=== PATIENT | female | born 1935 | race Caucasian/White ===

== ENCOUNTER → 2020-03-12 11:06 | Outpatient (BNVA) | payer OTHER, SELFPAY | PROVIDERS: PCP Internal Medicine; Referring Provider Internal Medicine; Visit Provider Internal Medicine | DX: I48.20 Chronic atrial fibrillation, unspecified (principal); I26.99 Other pulmonary embolism without acute cor pulmonale; Z51.81 Encounter for therapeutic drug level monitoring; Z79.01 Long term (current) use of anticoagulants | CPT/HCPCS: 85610 ==

== ENCOUNTER 2020-03-12 19:18 | Outpatient (REF) | payer OTHER, SELFPAY | END 2020-03-12 19:19 | disposition home or self-care (01) | LOC: HO.LNP 19:18 | PROVIDERS: Visit Provider Internal Medicine | DX: Z79.01 Long term (current) use of anticoagulants (principal) ==

== ENCOUNTER → 2020-03-29 11:24 | Outpatient (BNVA) | payer OTHER, SELFPAY | PROVIDERS: PCP Internal Medicine; Visit Provider Internal Medicine | DX: I48.20 Chronic atrial fibrillation, unspecified (principal); I26.99 Other pulmonary embolism without acute cor pulmonale; Z51.81 Encounter for therapeutic drug level monitoring; Z79.01 Long term (current) use of anticoagulants | CPT/HCPCS: 85610 ==

== ENCOUNTER 2020-04-19 09:17 | Outpatient (REF) | payer OTHER, SELFPAY ==
[2020-04-19 11:02] LABS: Alanine Aminotransferase 24 U/L (0-31); Albumin Level 3.7 g/dL (3.5-5.0); Alkaline Phosphatase 73 U/L (39-117); Aspartate Amino Transferase 24 U/L (5-31); Bilirubin Direct 0.2 mg/dL (0.0-0.5); Bilirubin Total 0.5 mg/dL (0.0-1.0); Cholesterol 161 mg/dL; HDL Cholesterol 65 mg/dL; LDL Cholesterol Calculated 84 mg/dl; Triglycerides 63 mg/dL
== END 2020-04-19 09:18 | disposition home or self-care (01) ==
LOC: HO.LAB 09:17
PROVIDERS: PCP Internal Medicine; Visit Provider Internal Medicine
DX: E78.00 Pure hypercholesterolemia, unspecified (principal)
CPT/HCPCS: 80061; 80076

== ENCOUNTER → 2020-04-30 10:32 | Outpatient (BNVA) | payer OTHER, SELFPAY | PROVIDERS: PCP Internal Medicine; Visit Provider Internal Medicine | DX: I48.20 Chronic atrial fibrillation, unspecified (principal); I26.99 Other pulmonary embolism without acute cor pulmonale; Z51.81 Encounter for therapeutic drug level monitoring; Z79.01 Long term (current) use of anticoagulants | CPT/HCPCS: 85610; 99211 ==

== ENCOUNTER → 2020-05-10 10:30 | Outpatient (BNVA) | payer OTHER, SELFPAY | PROVIDERS: PCP Family Medicine; Visit Provider Internal Medicine | DX: I48.20 Chronic atrial fibrillation, unspecified (principal); I26.99 Other pulmonary embolism without acute cor pulmonale; Z51.81 Encounter for therapeutic drug level monitoring; Z79.01 Long term (current) use of anticoagulants | CPT/HCPCS: 85610; 99211 ==

== ENCOUNTER → 2020-05-24 10:19 | Outpatient (REF) | payer OTHER, SELFPAY ==
--- NOTE | 2020-05-24 | NM_ITS ---
Myocardial perfusion study Indication: Chest tightness to evaluate for myocardial ischemia Technique: The patient was brought in for a Lexiscan perfusion study on 05/24/2020. Patient performed low-level exercise and was injected 0.4 mg of Lexiscan intravenously. Within a minute of injection, 25 mCi of sestamibi was given intravenously. Images were obtained using the SPECT gamma camera interlaced with the gating device. Images were obtained in supine position. Resting perfusion study was performed on 05/28/2020. Patient was administered 25 mCi of sestamibi intravenously at rest. Images were then obtained in supine position. Images obtained with and without CT attenuation. Total DLP 50 mGy-cm. Images were processed with the software and compared side to side in short axis, horizontal long axis and vertical long axis views. Findings: The stress perfusion study showed non attenuated images show mildly reduced uptake in the basal and mid septum of the LV myocardium. Remainder of the LV myocardium is normally perfused. Attenuation corrected images show mildly reduced uptake in the septum, distal anterior and apex of the LV myocardium.. The gated study shows normal LV systolic function with calculated LVEF of greater than 70 %. LV cavity is normal in size. The gated study shows normal systolic wall thickening and contraction of segments. Resting study shows no change in perfusion pattern compared to stress perfusion study. Gating at rest reveals normal systolic wall motion with ejection fraction at 74%. The findings are consistent with no reversible defect suggestive of myocardial ischemia. Most suggestive normal myocardial perfusion. NM/NM kyleigh perf SPECT rest & str Impression: 1. Myocardial perfusion imaging study shows normal myocardial perfusion 2. Gated LVEF is greater than 70% 3. Transient ischemic dilatation not present EKG nondiagnostic for ischemia
--- NOTE | 2020-05-24 10:00 | CA_ITS ---
Acquisition Time: 2020-05-24 11:52:41 Total Exercise Time: 00:02:00 Test Indications: R07.89 Medications: SEE CHART Protocol: LEXISCAN Max HR: 083 BPM 61% of Pred: 135 BPM Max BP: 132/070 mmHG Max Work Load: 1.0 METS Pharmacological stress test with Lexiscan injection, while sitting and kicking her legs, without anginal symptoms, with isolated PACs, with normotensive response to injection, with nondiagnostic EKG for ischemia. In recovery she reported some lightheadedness and was treated with Aminophylline 75mg IVP to reverse Lexiscan with improvement in symptom. Nuclear images pending. Test reviewed with Dr Lam. Referred By: Izaiah Serrano Overread By: CHUCK ROONEY
== END ==
LOC: HO.CARD 10:19
PROVIDERS: Visit Provider Internal Medicine
DX: R07.89 Other chest pain (principal); I48.0 Paroxysmal atrial fibrillation
CPT/HCPCS: 78452; 93017; A9500; J2785

== ENCOUNTER → 2020-05-31 11:36 | Outpatient (BNVA) | payer OTHER, SELFPAY | PROVIDERS: PCP Family Medicine; Visit Provider Internal Medicine | DX: I48.20 Chronic atrial fibrillation, unspecified (principal); I26.99 Other pulmonary embolism without acute cor pulmonale; Z51.81 Encounter for therapeutic drug level monitoring; Z79.01 Long term (current) use of anticoagulants | CPT/HCPCS: 85610; 99211 ==

== ENCOUNTER 2020-06-02 19:52 | Inpatient (IN) | payer OTHER, SELFPAY ==
--- NOTE | 2020-06-02 19:51 | ED.SYNCOPE ---
HPI - Syncope General Chief Complaint: Syncope Stated Complaint: SYNCOPE Time Seen by Provider: 06/02/20 19:59 Source: patient and EMS Mode of arrival: EMS Limitations: no limitations History of Present Illness HPI narrative: This is a 84-year-old female brought in by ambulance after having a syncopal episode, patient was sitting on the dinner table after she finished eating dinner patient passed out on the table witnessed by family, reportedly was over a minute, no witness full or head trauma, patient has no memory of the event, patient complained of mild chest pain that lasted for a few seconds then going to weigh patient has no chest pain, but patient feels still not back to her normal self, patient has history of pacemaker (10 years ago). Patient reportedly had stress test done last week documentation is not available in the system currently. Related Data Home Medications Medication Instructions Recorded Confirmed ascorbic acid (vitamin C) [Vitamin 500 mg PO DAILY 06/02/20 06/02/20 C] cholecalciferol (vitamin D3) 25 mcg PO DAILY 06/02/20 06/02/20 [Vitamin D3] cyanocobalamin (vitamin B-12) 1,000 mcg PO DAILY 06/02/20 06/02/20 [Vitamin B-12] ferrous sulfate 325 mg PO DAILY 06/02/20 06/02/20 ketoconazole 1 appl TOPICAL 3XW 06/02/20 06/02/20 lactobacillus combination no.4 3,000 mmu cells PO DAILY 06/02/20 06/02/20 [Probiotic] warfarin 2.5 mg PO TUFR@1800 06/02/20 06/02/20 warfarin 5 mg PO SUMOWETHSA@1800 06/02/20 06/02/20 Previous Rx's Medication Instructions Recorded warfarin 5 mg tablet 5 mg PO .COMPLEX #90 tab 03/12/20 simvastatin 10 mg tablet 10 mg PO BEDTIME #90 tab 04/20/20 flecainide 50 mg tablet 50 mg PO BID #180 tab 05/16/20 metoprolol succinate 25 mg 25 mg PO DAILY #90 tab 05/16/20 tablet,extended release 24 hr Allergies Allergy/AdvReac Type Severity Reaction Status Date / Time codeine [Codeine] Allergy Unknown VOMITING Verified 04/30/20 10:33 doxycycline [Doxycycline] Allergy Unknown DIFF Verified 04/30/20 10:33 BREATHING Penicillins Allergy Unknown DIFF Verified 04/30/20 10:33 BREATHING pepper (genus Capsicum) Allergy Unknown Unknown Verified 04/30/20 10:33 tetracycline [Tetracycline] Allergy Unknown DIFF Verified 04/30/20 10:33 BREATHING oxycodone [From PERCOCET] AdvReac Intermediate VOMITING Verified 04/30/20 10:33 epinephrine Allergy Unknown Unknown Uncoded 04/19/20 08:13 From Novocain Allergy Unknown LOWERED BP Uncoded 02/26/20 15:05 - OK IF IT DOES NOT HAVE EPINEPHRINE IN IT toro for MIBI Allergy Unknown headache Uncoded 11/19/19 00:00 most antibiotics Allergy Unknown Unknown Uncoded 04/19/20 08:13 Pt states she CAN take Emycin Allergy Unknown Unknown Uncoded 04/19/20 08:13 Review of Systems Review of Systems: All other systems are reviewed and are negative Constitutional: Reports as per HPI and Reports no additional constitutional complaints Eyes: Reports as per HPI and Reports no additional eye complaints Reports system reviewed and no additional complaints, except as documented Cardiovascular: Reports as per HPI and Reports no additional cardiovascular complaints Respiratory: Reports as per HPI and Reports no additional respiratory complaints Gastrointestinal: Reports as per HPI and Reports no additional gastrointestinal complaints Genitourinary: Reports no additional female genitourinary complaints Musculoskeletal: Reports no additional musculoskeletal complaints Skin/Breast: Reports system reviewed and no additional complaints, except as docu Psychiatric: Reports no additional psychiatric complaints Endocrine: Reports no additional endocrine complaints Hematologic/Lymphatic: Reports no additional hematologic/lymphatic complaints Allergic/Immunologic: Reports no additional allergic/immunologic complaints Reports system reviewed and no additional complaints, except as documented and Reports Abnormal speech present [facility] Past Medical History Medical History Atrial fibrillation Coronary artery disease Glaucoma History of pulmonary embolism Hypercholesterolemia Hypertension Irritable bowel syndrome Pacemaker Peripheral neuropathy Post concussive syndrome Protein S deficiency Sick sinus syndrome Stress incontinence Surgical History H/O breast surgery History of appendectomy History of D&C History of eye surgery History of hemorrhoidectomy History of hip replacement History of pacemaker History of tonsillectomy and adenoidectomy History of total abdominal hysterectomy and bilateral salpingo-oophorectomy Presence of IVC filter Family History Family History Father Heart disease Stroke Mother Heart disease Sister Breast cancer Brother Heart disease Sister Breast cancer Social History Social History Alcohol intake: current Alcohol intake frequency: holidays/special occasions only Alcohol type: hard liquor Smoked in Last 30 Days: No Use of substances other than those prescribed or required for medical reasons: No Advance Directives: No Advance Directives Information Provided: Yes Physical Exam Vital Signs: Vital Signs: Last Vital Signs Temp 98.2 F 06/02/20 22:09 Pulse 72 06/02/20 22:09 Resp 18 06/02/20 22:09 BP 111/63 06/02/20 22:09 Pulse Ox 97 06/02/20 22:10 Body Mass Index 19.5 Vital signs have been reviewed as normal and appeared to be correct. Blood pressure normal. Heart rate normal. Respiration rate normal. Temperature normal. Oxygen saturation normal. Appearance: Alert. Oriented X3. No acute distress. Head: Normal external exam. Normocephalic. Atraumatic. No Ornelas signs noted. No raccoon eyes noted Eyes: PERRLA. EOMI. Conjunctiva and sclera normal. Eyelids normal. ENT: EAC normal. TM's Normal. Pharynx normal. Uvula midline. Moist mucous membranes. No trismus noted. No drooling noted. No muffled voice noted. Neck: Normal inspection. Neck supple. FROM. No adenopathy. Thyroid Normal. No meningeal signs. No neck mass noted. CVS: Normal heart rate and rhythm. Heart sound normal. No murmurs noted. Pulses normal throughout. Respiratory: No respiratory distress. Painless inspiration. Breath sounds normal. No wheezes/rales/rhonchi noted. Chest nontender. No accessory muscle usage noted or decreased air movement noted. Abdomen: Soft and nontender. Bowel sounds normal in all 4 quadrants. No distention noted. No organomegaly noted. No visible injury noted. Back: No CVA tenderness. Full range of motion noted. Skin: Skin warm and dry. Normal skin color. Normal skin turgor. No rashes/lesions/lacerations noted. Extremities: No lower extremity edema. Extremities exhibit normal range of motion. Extremities nontender. Neuro: Oriented X 3. No motor deficit. No sensory deficit. Reflexes normal. MDM - Syncope MDM Narrative Medical decision making narrative: Assessment and plan. 84-year-old female had syncopal episode without physical injury. Patient had a recent myocardial perfusion scan which showed normal myocardial perfusion with ejection fraction of 70%. Will admit the patient for further syncopal workout. Lab Data Result diagrams: 06/02/20 20:41 06/02/20 20:41 Labs: Lab Results 06/02/20 06/02/20 06/02/20 Range/Units 20:41 20:41 20:41 WBC 5.0 (4.8-10.8) X10*3/uL RBC 4.18 L (4.20-5.50) X10*6/uL Hgb 12.8 (12.0-16.0) g/dl Hct 38.6 (37-47) % MCV 92.3 (80-98) fL MCH 30.6 (27.0-33.0) pg MCHC 33.2 (31.0-35.0) g/dl RDW 15.2 (11.0-16.0) % Plt Count 159 L (160-400) X10*3/uL MPV 10.1 (9.4-12.3) fL Immature Gran % (Auto) 0.4 (0.0-0.4) % Neut % (Auto) 68.1 (45-73) % Lymph % (Auto) 19.9 L (20-40) % Harding % (Auto) 9.6 (2-11) % Eos % (Auto) 1.2 (0-4) % Baso % (Auto) 0.8 (0-2) % Lymph # (Auto) 1.0 L (1.2-4.9) X10*3/uL Harding # (Auto) 0.5 (0.1-1.2) X10*3/uL Eos # (Auto) 0.1 (0.0-0.4) X10*3/uL Baso # (Auto) 0.0 (0.0-0.2) X10*3/uL Abs Immat Gran (auto) 0.02 (0.00-0.03) X10*3/uL Absolute Neuts (auto) 3.4 (2.0-8.3) X10*3/uL Absolute Nucleated RBC 0.000 (0.0-0.012) X10*3/uL Nucleated RBC % (auto) 0.0 (0.0-0.2) /100WBC PT (10.8-13.0) SEC INR (0.9-1.1) APTT (24.1-38.0) SEC Sodium 140 (135-145) mmol/L Potassium 4.0 (3.3-5.1) mmol/l Chloride 106 (96-108) mmol/L Carbon Dioxide 26 (22-29) mmol/L Anion Gap 12 (12-20) BUN 17 H (9-16) mg/dL Creatinine 0.94 (0.5-1.4) mg/dL Estim Creat Clear Calc 31.3 Estimated GFR 57 Random Glucose 90 (60-115) mg/dL Calcium 8.8 (8.4-10.2) mg/dL Total Bilirubin 0.6 (0.0-1.0) mg/dL Direct Bilirubin 0.2 (0.0-0.5) mg/dL AST 32 H (5-31) U/L ALT 23 (0-31) U/L Alkaline Phosphatase 75 (39-117) U/L Troponin I High Sens < 3.5 (<3.5-17.0) ng/L B-Natriuretic Peptide (<100) pg/mL Total Protein 6.2 L (6.5-8.0) g/dL Albumin 3.8 (3.5-5.0) g/dL Lipase 44 (8-78) U/L 06/02/20 06/02/20 Range/Units 20:41 20:41 WBC (4.8-10.8) X10*3/uL RBC (4.20-5.50) X10*6/uL Hgb (12.0-16.0) g/dl Hct (37-47) % MCV (80-98) fL MCH (27.0-33.0) pg MCHC (31.0-35.0) g/dl RDW (11.0-16.0) % Plt Count (160-400) X10*3/uL MPV (9.4-12.3) fL Immature Gran % (Auto) (0.0-0.4) % Neut % (Auto) (45-73) % Lymph % (Auto) (20-40) % Harding % (Auto) (2-11) % Eos % (Auto) (0-4) % Baso % (Auto) (0-2) % Lymph # (Auto) (1.2-4.9) X10*3/uL Harding # (Auto) (0.1-1.2) X10*3/uL Eos # (Auto) (0.0-0.4) X10*3/uL Baso # (Auto) (0.0-0.2) X10*3/uL Abs Immat Gran (auto) (0.00-0.03) X10*3/uL Absolute Neuts (auto) (2.0-8.3) X10*3/uL Absolute Nucleated RBC (0.0-0.012) X10*3/uL Nucleated RBC % (auto) (0.0-0.2) /100WBC PT 28.3 H (10.8-13.0) SEC INR 2.4 H (0.9-1.1) APTT 33.4 (24.1-38.0) SEC Sodium (135-145) mmol/L Potassium (3.3-5.1) mmol/l Chloride (96-108) mmol/L Carbon Dioxide (22-29) mmol/L Anion Gap (12-20) BUN (9-16) mg/dL Creatinine (0.5-1.4) mg/dL Estim Creat Clear Calc Estimated GFR Random Glucose (60-115) mg/dL Calcium (8.4-10.2) mg/dL Total Bilirubin (0.0-1.0) mg/dL Direct Bilirubin (0.0-0.5) mg/dL AST (5-31) U/L ALT (0-31) U/L Alkaline Phosphatase (39-117) U/L Troponin I High Sens (<3.5-17.0) ng/L B-Natriuretic Peptide 140 H (<100) pg/mL Total Protein (6.5-8.0) g/dL Albumin (3.5-5.0) g/dL Lipase (8-78) U/L Imaging Data Chest x-ray: Radiologist's impression: No acute intrathoracic pathology. CT scan - head: Radiologist's impression: No acute intracranial pathology. ECG Data Interpretation: Normal sinus rhythm at 65 beats per minutes, ID interval is prolonged it with first-degree AV block, otherwise unremarkable intervals, T-wave flattening in aVL,III. Discharge Plan Discharge Clinical Impression: Syncope Patient Disposition: Admitted As Inpatient Prescriptions: No Action flecainide 50 mg tablet 50 mg PO BID Qty: 180 RF: 3 metoprolol succinate 25 mg tablet extended release 24 hr 25 mg PO DAILY Qty: 90 RF: 3 ketoconazole 2 % Shampoo 1 appl TOPICAL 3XW RF: 0 warfarin 5 mg Tablet 5 mg PO SUMOWETHSA@1800 RF: 0 warfarin 5 mg Tablet 2.5 mg PO TUFR@1800 RF: 0 cyanocobalamin (vitamin B-12) [Vitamin B-12] 1,000 mcg Tablet 1,000 mcg PO DAILY RF: 0 ascorbic acid (vitamin C) [Vitamin C] 500 mg Tablet 500 mg PO DAILY RF: 0 ferrous sulfate 325 mg (65 mg iron) Tablet 325 mg PO DAILY RF: 0 cholecalciferol (vitamin D3) [Vitamin D3] 25 mcg (1,000 unit) Tablet 25 mcg PO DAILY RF: 0 Probiotic 3 billion cell Capsule 3,000 mmu cells PO DAILY RF: 0 simvastatin 10 mg tablet 10 mg PO BEDTIME Qty: 90 RF: 1 warfarin 5 mg tablet 5 mg PO .COMPLEX Qty: 90 RF: 0
[2020-06-02 19:57] VITALS: BP 122/71; PULSE 67; PULSE 72; RESP 18; TEMP 36.7; O2SAT 95; O2SAT 99; BMI 19.5
--- NOTE | 2020-06-02 19:59 | XR_ITS ---
EXAMINATION: XR CHEST CLINICAL INFORMATION: Syncope COMPARISON: Chest CT 10/29/2019 and chest radiograph 09/19/2018 TECHNIQUE: Frontal view of the chest was obtained. FINDINGS: The heart and pulmonary vessels appear normal. No infiltrates, effusions or lung masses are seen. There is a left chest wall pacemaker with one lead in the atria the other at the right ventricular apex. A retrievable IVC filter is present tip just beneath the L1-L2 interspace. XR/XR chest 1V IMPRESSION: No acute intrathoracic disease.
--- NOTE | 2020-06-02 20:00 | ECG_ITS ---
Test Reason : SYNCOPE Blood Pressure : / mmHG Vent. Rate : 067 BPM Atrial Rate : 067 BPM P-R Int : 224 ms QRS Dur : 102 ms QT Int : 420 ms P-R-T Axes : 068 -31 072 degrees QTc Int : 443 ms Sinus rhythm with 1st degree A-V block Left axis deviation Anteroseptal infarct (cited on or before 14-SEP-2003) Abnormal ECG When compared with ECG of 19-SEP-2018 16:57, No significant change was found Referred By: Aaliyah Domingo Electronically Signed By:MIKE MARTINEZ MD
--- NOTE | 2020-06-02 20:00 | CT_ITS ---
EXAMINATION: CT HEAD WITHOUT CONTRAST CLINICAL INFORMATION: Syncope COMPARISON: CT head 11/11/2019 TECHNIQUE: Contiguous axial imaging was performed from the skull base to vertex without intravenous administration of contrast. Coronal and sagittal reformatted images are performed at the CT scanner This CT examination was performed using dose optimization techniques as appropriate, variously including the following: *Automated exposure control *Adjustment of mA and/or kV according to patient size (this includes techniques or standardized protocols for targeted exams where dose is matched to indication/reason for exam; i.e. extremities or head) *Use of iterative reconstruction technique DLP: 624 mGy-cm FINDINGS: There is no evidence of acute intracranial hemorrhage or territorial infarction. No abnormal mass effect or midline shift is seen. [place]more to white matter differentiation is well preserved. No extra-axial fluid collections are identified. There is atrophy with prominence of the ventricles and the sulci and hypodensity of the periventricular white matter due to chronic small vessel ischemic disease. 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 There are vascular calcifications of the internal carotid arteries bilaterally. The osseous structures and soft tissues are normal. The mastoid air cells and visualized portions of the paranasal sinuses are well aerated. CT/CT head/brain wo con IMPRESSION: No acute intracranial pathology.
--- NOTE | 2020-06-02 20:15 | PC.NURSE ---
chest xray performed
[2020-06-02 20:48] LABS: MANUAL DIFF FLAG NO
[2020-06-02 20:54] LABS: Basophils Percent Auto 0.8 % (0-2); Eosinophils Absolute Auto 0.1 X10*3/uL (0.0-0.4); Eosinophils Percent Auto 1.2 % (0-4); Hematocrit 38.6 % (37-47); Hemoglobin 12.8 g/dl (12.0-16.0); Imm Gran Abs Auto 0.02 X10*3/uL (0.00-0.03); Imm Gran Pct Auto 0.4 % (0.0-0.4); Lymphocytes Percent Auto 19.9 % (20-40); Mean Corpuscular HGB Conc 33.2 g/dl (31.0-35.0); Mean Corpuscular Hemoglobin 30.6 pg (27.0-33.0); Mean Corpuscular Volume 92.3 fL (80-98); Mean Platelet Volume 10.1 fL (9.4-12.3); Monocytes Absolute Auto 0.5 X10*3/uL (0.1-1.2); Monocytes Percent Auto 9.6 % (2-11); Neutrophils Absolute Auto 3.4 X10*3/uL (2.0-8.3); Neutrophils Percent Auto 68.1 % (45-73); Platelet Count 159 X10*3/uL (160-400); Red Blood Count 4.18 X10*6/uL (4.20-5.50); Red Cell Distribution Width 15.2 % (11.0-16.0)
[2020-06-02 21:03] LABS: INTERNATIONAL NORM RATIO 2.4 (0.9-1.1); Prothrombin Time 28.3 SEC (10.8-13.0)
[2020-06-02 21:05] LABS: Partial Thromboplastin Time 33.4 SEC (24.1-38.0)
[2020-06-02 21:12] LABS: Alanine Aminotransferase 23 U/L (0-31); Albumin Level 3.8 g/dL (3.5-5.0); Alkaline Phosphatase 75 U/L (39-117); Anion Gap 12 (12-20); Aspartate Amino Transferase 32 U/L (5-31); Bilirubin Direct 0.2 mg/dL (0.0-0.5); Bilirubin Total 0.6 mg/dL (0.0-1.0); Blood Urea Nitrogen 17 mg/dL (9-16); Calcium 8.8 mg/dL (8.4-10.2); Carbon Dioxide 26 mmol/L (22-29); Chloride 106 mmol/L (96-108); Creatinine Clr Calc Pharmacy 31.3; Estimated Glomerular Filt Rate 57; Glucose Random 90 mg/dL (60-115); Lipase 44 U/L (8-78); Sodium 140 mmol/L (135-145); Total Protein 6.2 g/dL (6.5-8.0)
[2020-06-02 21:16] LABS: B Type Natriuretic Peptide 140 pg/mL (<100); Troponin-I High Sensitivity < 3.5 ng/L (<3.5-17.0)
--- NOTE | 2020-06-02 22:05 | PC.NURSE ---
[facility] number [facility] devin will miner pick patient when discharged, she lives approx 30 min away. [phone]
--- NOTE | 2020-06-02 22:06 | PC.NURSE ---
husbands cell would like to be notified if patient is being kept overnight his name is frannie [phone]
[2020-06-02 22:09] VITALS: BP 111/63; PULSE 72; RESP 18; TEMP 36.8; O2SAT 97
[2020-06-02 22:10] VITALS: PULSE 73; O2SAT 97
--- NOTE | 2020-06-02 22:12 | PC.NURSE ---
patient a&ox3, potline monitor sinus jana 60-70s, vss, nasal swab performed, will continue to monitor.
[2020-06-02 22:32] LABS: COVID-19 Test Negative (Negative)
[2020-06-02 23:36] LABS: Appearance Urine CLEAR; Color Urine YELLOW; Glucose Urine UA NEG (NEG); Leukocyte Esterase Urine NEG (NEG); Nitrite Urine NEG (NEG); PH 7.5 (5.0-8.0); Specific Gravity - Urine 1.015 (1.005-1.025); UACC Culture Trigger NO; Urine Blood NEG (NEG); Urine Ketones NEG (NEG); Urine Protein NEG (NEG-TRACE)
[2020-06-03] VITALS (10 sets, daily range): BP systolic 99–140; BP diastolic 52–71; PULSE 59–71; RESP 16–18; TEMP 36.3–36.6; O2SAT 95–99
--- NOTE | 2020-06-03 00:23 | CA_ITS ---
Transthoracic Echocardiogram Patient (Last, First, Middle): Claire Ontiveros, Gender: Female Date of : 1935 Age: 84 Procedure Date: 06/03/2020 Procedure Type: Transthoracic [place]ogram [place] [facility] [place]: 152.4 cm Weight: 45.36 kg BSA: 1.39 m2 Heart Rate: bpm BP: 99 / 52 mmHg Freelance Operator: LANRE Moreno MD: Marylin Demarco MD Forepart Reducer: Glen Horne MD Symptoms: syncope Study Quality: Good ECG Rhythm: Sinus Conclusions: - 1. Normal LV systolic function with impaired relaxation filling pattern 2. Mildly dilated left atrium 3. Mild aortic regurgitation 4. Normal RV systolic pressure 5. No pericardial effusion Findings Left Ventricle Normal left ventricular size, thickness, and systolic function. The visually estimated ejection fraction is between 60-65%. Spectral Doppler is indicative of an impaired relaxation filling pattern. E/E prime ratio is between 8 and 15 consistent with indeterminate filling pressures. Right Ventricle Normal right ventricular cavity size and systolic function. There is a pacemaker wire seen in the right ventricle. Atria The left atrium is mildly dilated. The right atrium is normal in size. A pacemaker wire is identified in the right atrium. Aortic Valve Normal aortic valve structure and function. There is no aortic valve stenosis. There is mild aortic valve regurgitation. Mitral Valve There is mild anterior and posterior mitral leaflet thickening. There is trace mitral valve regurgitation. There is no mitral valve stenosis. Pulmonic Valve The pulmonic valve is likely normal. Tricuspid Valve Normal tricuspid valve structure. There is mild tricuspid valve regurgitation. The right ventricular systolic pressure is normal. The right ventricular systolic pressure is 36 mmHg. Normal right atrial pressure. There is no evidence of pulmonary hypertension. Great Vessels All visible segments of the aorta are normal in size. The pulmonary artery was not well visualized. Venous The inferior vena cava is normal in size and collapses greater than 50% with inspiration. Pericardium/Pleural There is no evidence of pericardial effusion. Prior Study Comparison No significant change compared to prior study dated: 07/15/2019. Measurements 2D Linear Measurements IVSd: 0.78 0.6-0.9/0.6-1.0 cm LVIDd: 4.00 3.9-5.3/4.2-5.9 cm LVIDd Index: 2.88 2.4-3.2/2.2-3.1 cm/m2 LVIDs: 2.48 2.0-3.6 cm LVPWd: 0.80 0.7-1.1 cm Ao Root: 3.10 2.1-3.5 cm LA Diam: 2.80 2.7-3.8/3.0-4.0 cm LAIDs Index: 2.01 1.5-2.3 cm/m2 LV Mass: 114.13 67-162/88-224 g LV Mass Index: 82.11 43-95/49-115 g/m2 LVOT Diam: 2.00 3.0+(-)1.3 cm 2D Systolic Function EF 4C: 58.20 >55% EF 2C: 62.30 >55% EF BiP: 60.20 >55% Mitral Valve MV Pk E: 0.68 MV PK A: 0.85 MV Decel Time: 306.00 E/A: 0.80 E'Lateral: 8.61 E'Medial: 5.71 E/E' Med: 12.00 E/E' Lat: 7.90 PHT: 90.00 MVA PHT: 2.44 Decel [place]: 2.23 Aortic Valve AoV Pk Fei: 1.38 AoV Mn Fei: 0.91 AoV VTI: 0.31 AoV Pk Grad: 8.00 Aov Mn Grad: 4.00 LOGAN Cont.VTI: 2.67 AI Pk Fei: 4.17 AI [place]: 2.29 LVOT LVOT Pk Fei: 1.15 LVOT Mn Fei: 0.76 LVOT VTI: 0.27 LVOT Pk Grad: 5.00 LVOT Mn Grad: 3.00 LVOT Diam: 2.00 LVOT Area: 3.14 Diastolic Function MV Pk E: 0.68 MV Pk A: 0.85 E/A: 0.80 E'Medial: 5.71 E/E' Med: 12.00 E' Laterial: 8.61 E/E' Lat: 7.90 Tricuspid Valve TR Pk Fei: 2.86 TR Pk Grad: 33.00 RA Press: 3.00 RVSP: 36.00 Great Vessels Aorta Ao Root-2D: 3.10 2.0-3.7 cm Ao Asc: 3.20 2.1-3.4 cm Ao Arch: 3.30 Updated in Other Vendor System with Status of Final Glen Horne MD electronically signed on 06/03/2020 1:09:33 PM with status of Final
[2020-06-03] MEDS: 0.9 % Sodium Chloride Flush 3 ML SYRINGE IVFLUSH ×3 (00:45→16:32)
[2020-06-03 04:36] LABS: Basophils Percent Auto 0.7 % (0-2); Eosinophils Absolute Auto 0.1 X10*3/uL (0.0-0.4); Eosinophils Percent Auto 1.2 % (0-4); Hematocrit 34.4 % (37-47); Hemoglobin 11.1 g/dl (12.0-16.0); Imm Gran Abs Auto 0.01 X10*3/uL (0.00-0.03); Imm Gran Pct Auto 0.2 % (0.0-0.4); Lymphocytes Absolute Auto 1.2 X10*3/uL (1.2-4.9); MANUAL DIFF FLAG NO; Mean Corpuscular HGB Conc 32.3 g/dl (31.0-35.0); Mean Corpuscular Volume 89.8 fL (80-98); Mean Platelet Volume 10.3 fL (9.4-12.3); Monocytes Absolute Auto 0.6 X10*3/uL (0.1-1.2); Monocytes Percent Auto 13.5 % (2-11); Neutrophils Absolute Auto 2.5 X10*3/uL (2.0-8.3); Neutrophils Percent Auto 57.4 % (45-73); Platelet Count 156 X10*3/uL (160-400); Red Blood Count 3.83 X10*6/uL (4.20-5.50); Red Cell Distribution Width 15.2 % (11.0-16.0); White Blood Count 4.3 X10*3/uL (4.8-10.8)
[2020-06-03 05:03] LABS: Anion Gap 8 (12-20); Blood Urea Nitrogen 19 mg/dL (9-16); Calcium 8.3 mg/dL (8.4-10.2); Carbon Dioxide 27 mmol/L (22-29); Chloride 108 mmol/L (96-108); Creatinine Clr Calc Pharmacy 37.2; Estimated Glomerular Filt Rate > 60; Glucose Random 96 mg/dL (60-115); Sodium 139 mmol/L (135-145)
--- NOTE | 2020-06-03 05:50 | P.HPHOSP_ITS ---
History of Present Illness Date of Service: 06/02/20 Chief Complaint: Syncope This is an 84-year-old female with past medical history of AFib with pacemaker, CAD, history of PE status post IVC filter, HLD, HTN, IBS, sick sinus syndrome, who presents to the hospital with complaints of syncopal episode. Patient rep orts that she was at the dining table having dinner with her , granddaughter and grandson when all the sudden she passed out. She does not remember what happened completely but the last thing she remembers was that she was eating dinner and all of a sudden she started feeling strange, did not know was happening, became cloudy in thought, and the next thing she remembers she woke up on the floor confused as to how she got there. She denies having any palpitations, vertigo, dizziness, chest pain, or shortness of breath prior to the episode occurring. She was slightly confused when she w lilian up but had no weakness numbness or tingling. She did not have any stroke- like activity. She had no nausea or vomiting. No diarrhea constipation or loss of bowel or bladder control. Has not has similar episode to this in the past but has fallen otherwise. To the ED hemodynamically stable with blood pressure of 111/63, heart rate of 72, respiratory rate of 18, satting 97% on room air Labs are significant for hemoglobin of 12.8, hematocrit of 38.6, sodium of 140, potassium of 4.0, BUN of 17, creatinine of 0.94, BNP of 140, troponin negative Sinus rhythm with first-degree AV block, left axis deviation, with no significant change as compared to EKG from September 2018 Shows no acute intrathoracic disease Past medical history: AFib, CAD, history of PE status post IVC filter, hyperlipidemia, hypertension, IBS, sick sinus syndrome status post pacemaker Surgical history: IVC, breast surgery, appendectomy, oophorectomy Family history: Coronary artery disease, [place] social history: Comes from home, lives with her , walks independently, denies any tobacco alcohol or illicit drugs Review of Systems Review of Systems: Yes all other systems are reviewed and are negative [facility] Medical History Atrial fibrillation Coronary artery disease Glaucoma History of pulmonary embolism Hypercholesterolemia Hypertension Irritable bowel syndrome Pacemaker Peripheral neuropathy Post concussive syndrome Protein S deficiency Sick sinus syndrome Stress incontinence Family History Father Heart disease Stroke Mother Heart disease Sister Breast cancer Brother Heart disease Sister Breast cancer Surgical History H/O breast surgery History of appendectomy History of D&C History of eye surgery History of hemorrhoidectomy History of hip replacement History of pacemaker History of tonsillectomy and adenoidectomy History of total abdominal hysterectomy and bilateral salpingo-oophorectomy Presence of IVC filter Social History Household Members: Spouse Housing: House Do you presently have visiting nurse or other home services: Yes (once every other week) Alcohol intake: current Alcohol intake frequency: holidays/special occasions only Alcohol type: hard liquor Smoking Status: Never smoker Smoked in Last 30 Days: No Use of substances other than those prescribed or required for medical reasons: No Have you been hit, kicked, punched, or otherwise hurt by someone within the past year? If so, by whom?: No Do you feel safe in your current relationship?: Yes Is there a partner from a previous relationship who is making you feel unsafe now?: No Are you made to feel afraid or neglected: No Advance Directives: No Advance Directives Information Provided: Yes Do you have thoughts of harming others: None Do you have a plan to hurt others: No Plan Recently lost weight without trying: No Meds Allergies Allergy/AdvReac Type Severity Reaction Status Date / Time codeine [Codeine] Allergy Unknown VOMITING Verified 04/30/20 10:33 doxycycline [Doxycycline] Allergy Unknown DIFF Verified 04/30/20 10:33 BREATHING Penicillins Allergy Unknown DIFF Verified 04/30/20 10:33 BREATHING pepper (genus Capsicum) Allergy Unknown Unknown Verified 04/30/20 10:33 tetracycline [Tetracycline] Allergy Unknown DIFF Verified 04/30/20 10:33 BREATHING oxycodone [From PERCOCET] AdvReac Intermediate VOMITING Verified 04/30/20 10:33 epinephrine Allergy Unknown Unknown Uncoded 04/19/20 08:13 From Novocain Allergy Unknown LOWERED BP Uncoded 02/26/20 15:05 - OK IF IT DOES NOT HAVE EPINEPHRINE IN IT toro for MIBI Allergy Unknown headache Uncoded 11/19/19 00:00 most antibiotics Allergy Unknown Unknown Uncoded 04/19/20 08:13 Pt states she CAN take Emycin Allergy Unknown Unknown Uncoded 04/19/20 08:13 Home Medications Medication Instructions Recorded Confirmed Type ascorbic acid (vitamin C) [Vitamin 500 mg PO DAILY 06/02/20 06/02/20 History C] cholecalciferol (vitamin D3) 25 mcg PO DAILY 06/02/20 06/02/20 History [Vitamin D3] cyanocobalamin (vitamin B-12) 1,000 mcg PO DAILY 06/02/20 06/02/20 History [Vitamin B-12] ferrous sulfate 325 mg PO DAILY 06/02/20 06/02/20 History ketoconazole 1 appl TOPICAL 3XW 06/02/20 06/02/20 History lactobacillus combination no.4 3,000 mmu cells PO DAILY 06/02/20 06/02/20 History [Probiotic] warfarin 2.5 mg PO TUFR@1800 06/02/20 06/02/20 History warfarin 5 mg PO SUMOWETHSA@1800 06/02/20 06/02/20 History Physical Exam Vital Signs and Narrative: Vital Signs: Last Vital Signs Temp 97.9 F 06/03/20 00:36 Pulse 64 06/03/20 03:35 Resp 17 06/03/20 03:35 BP 99/52 L 06/03/20 03:35 Pulse Ox 96 06/03/20 03:35 Body Mass Index 19.5 Const: General: cooperative and no acute distress Orientation/consciousness: patient oriented x3 Eyes: General: appearance normal, both eyes and all related structures Resp: Effort & Inspection: normal respiratory effort and able to speak in complete sentences Cardio: Rate: regular rate Rhythm: regular rhythm GI: Palpation (GI): Soft to palpation Auscultation: normal bowel sounds Skin: General skin exam: no rashes or lesions noted Neuro: Other: No neurological deficits, no no focal motor deficits General: patient oriented x3 Cognition (Neuro): normal cognition Extrem: General: Yes normal to inspection and Yes no pedal edema Results Labs CBC and Chem 7: 06/03/20 04:07 06/03/20 04:07 Labs: Laboratory Results - last 24 hr 06/02/20 06/02/20 06/02/20 20:41 20:41 20:41 MCV 92.3 MCH 30.6 MCHC 33.2 RDW 15.2 Plt Count 159 L MPV 10.1 Immature Gran % (Auto) 0.4 Neut % (Auto) 68.1 Lymph % (Auto) 19.9 L [place] % (Auto) 9.6 Eos % (Auto) 1.2 Baso % (Auto) 0.8 Lymph # (Auto) 1.0 L [place] # (Auto) 0.5 Eos # (Auto) 0.1 Baso # (Auto) 0.0 Abs Immat Gran (auto) 0.02 Absolute Neuts (auto) 3.4 Absolute Nucleated RBC 0.000 Nucleated RBC % (auto) 0.0 PT INR APTT Anion Gap 12 Estim Creat Clear Calc 31.3 Estimated GFR 57 Random Glucose 90 Calcium 8.8 Total Bilirubin 0.6 Direct Bilirubin 0.2 AST 32 H ALT 23 Alkaline Phosphatase 75 Troponin I High Sens < 3.5 B-Natriuretic Peptide Total Protein 6.2 L Albumin 3.8 Lipase 44 Urine Color Urine Appearance Urine pH Ur Specific [place] Urine Protein Urine Glucose (UA) Urine Ketones Urine Blood Urine Nitrite Ur Leukocyte Esterase COVID-19 ([facility]) COVID-19 [place] 06/02/20 06/02/20 06/02/20 20:41 20:41 22:12 MCV MCH MCHC RDW Plt Count MPV Immature Gran % (Auto) Neut % (Auto) Lymph % (Auto) [place] % (Auto) Eos % (Auto) Baso % (Auto) Lymph # (Auto) [place] # (Auto) Eos # (Auto) Baso # (Auto) Abs Immat Gran (auto) Absolute Neuts (auto) Absolute Nucleated RBC Nucleated RBC % (auto) PT 28.3 H INR 2.4 H APTT 33.4 Anion Gap Estim Creat Clear Calc Estimated GFR Random Glucose Calcium Total Bilirubin Direct Bilirubin AST ALT Alkaline Phosphatase Troponin I High Sens B-Natriuretic Peptide 140 H Total Protein Albumin Lipase Urine Color Urine Appearance Urine pH Ur Specific [place] Urine Protein Urine Glucose (UA) Urine Ketones Urine Blood Urine Nitrite Ur Leukocyte Esterase COVID-19 ([facility]) Negative COVID-19 [facility] Com See Note 06/02/20 06/03/20 06/03/20 23:28 04:07 04:07 MCV 89.8 MCH 29.0 MCHC 32.3 RDW 15.2 Plt Count 156 L MPV 10.3 Immature Gran % (Auto) 0.2 Neut % (Auto) 57.4 Lymph % (Auto) 27.0 [place] % (Auto) 13.5 H Eos % (Auto) 1.2 Baso % (Auto) 0.7 Lymph # (Auto) 1.2 [place] # (Auto) 0.6 Eos # (Auto) 0.1 Baso # (Auto) 0.0 Abs Immat Gran (auto) 0.01 Absolute Neuts (auto) 2.5 Absolute Nucleated RBC 0.000 Nucleated RBC % (auto) 0.0 PT INR APTT Anion Gap 8 L Estim Creat Clear Calc 37.2 Estimated GFR > 60 Random Glucose 96 Calcium 8.3 L Total Bilirubin Direct Bilirubin AST ALT Alkaline Phosphatase Troponin I High Sens B-Natriuretic Peptide Total Protein Albumin Lipase Urine Color YELLOW Urine Appearance CLEAR Urine pH 7.5 Ur Specific [place] 1.015 Urine Protein NEG Urine Glucose (UA) NEG Urine Ketones NEG Urine Blood NEG Urine Nitrite NEG Ur Leukocyte Esterase NEG COVID-19 ([facility]) COVID-19 Clin Com Imaging Radiologist's Impressions: Impressions Chest X-Ray 06/02/20 19:59 IMPRESSION: No acute intrathoracic disease. Head CT 06/02/20 20:00 IMPRESSION: No acute intracranial pathology. Assessment and Plan (1) Syncope: Qualifiers: Syncope type: unspecified Qualified Code(s): R55 - Syncope and collapse Status: Acute (2) Atrial fibrillation: Qualifiers: Atrial fibrillation type: unspecified Qualified Code(s): I48.91 - Unspecified atrial fibrillation Problem details: Dr. Serrano Status: Acute (3) Sick sinus syndrome: Status: Acute (4) Hypertension: Qualifiers: Hypertension type: essential hypertension Qualified Code(s): I10 - Essential (primary) hypertension Status: Acute (5) Coronary artery disease: Qualifiers: Coronary Disease-Associated Artery/Lesion type: unspecified vessel or lesion type [place] vs. transplanted heart: [place] heart Associated angina: without angina Qualified Code(s): I25.10 - Atherosclerotic heart disease of [place] coronary artery without angina pectoris Status: Acute This is a 84-year-old female with past medical history as mentioned above includes AFib, CAD, as well as sick sinus syndrome status post pacemaker who presents to the hospital with complaints of syncopal episode # syncope - cardiogenic versus neurogenic , less likely to be vasovagal - patient with coronary artery disease as well as atrial fibrillation as well as sick sinus syndrome - has pacemaker in place ([place]) - had vague prodromal symptoms - head CT negative Plan: - telemetry - echocardiogram - will most likely need pacemaker interrogation - may need to be discharged and 30 day event monitor # AFib - INR currently of 2.4 - continue Coumadin, continue metoprolol # sick sinus syndrome - pacemaker in place - EKG as above with no recent changes - will need interrogation # CAD - continue metoprolol and statin DVT prophylaxis warfarin
[2020-06-03] MEDS: Lactated Ringers 500 ML IVCONT (06:17)
[2020-06-03 07:47] LABS: INTERNATIONAL NORM RATIO 2.3 (0.9-1.1); Prothrombin Time 27.8 SEC (10.8-13.0)
[2020-06-03] MEDS: Metoprolol Succinate ER 25 MG TAB.ER.24H PO (11:28)
[2020-06-03] MEDS: Flecainide Acetate 50 MG TABLET PO ×2 (11:28→21:56)
[2020-06-03] MEDS: Cyanocobalamin (Vitamin B-12) 1,000 MCG TABLET 1000 MCG PO (11:29)
[2020-06-03] MEDS: Ascorbic Acid 500 MG TABLET PO (11:29)
[2020-06-03] MEDS: Cholecalciferol (Vitamin D3) 25 MCG TABLET PO (11:29)
--- NOTE | 2020-06-03 11:51 | P.CONCA_ITS ---
History of Present Illness History of Present Illness Date of Service: 06/03/20 Chief complaint: Syncope Narrative: Thank you for inviting us in consult on Claire for loss of consciousness. She is a elderly woman with prior pacemaker placement, Medtronic dual-chamber for sick sinus syndrome about 10 years ago. Patient also has prior history of reported atrial fibrillation, coronary artery disease. She recently underwent a myocardial perfusion imaging as an outpatient which was within normal limits. She has prior IVC filter placement for pulmonary embolism. She says she was in usual state of health yesterday and was having a nice dinner made by her healthcare proxy who has a granddaughter. She was sitting down with them and having a dessert and subsequently she started noticing the sound changing and becoming prolonged and and had some blurry vision. He was then that she fell over and passed out. She will had a loss of consciousness for prolonged time. It has been reported that she was frothing at the mouth. There was no clear tonic-clonic episode or bowel/bladder incontinence. She had no chest pain, shortness of breath, nausea, vomiting, diaphoresis. She was brought here. She was hemodynamically stable. Overnight monitoring as shown intermittent atrial pacing. Cardiology consult was sought because of the loss of consciousness. There is no obvious injuries. Head CT shows no intracranial pathology. Review of Systems Constitutional: Constitutional: Denies chills, Denies fatigue, Denies fever(s) and Denies poor appetite Eyes: Eyes: Reports blurry vision ENT: Reports change in voice Cardiovascular: Cardiovascular: Denies chest pain at rest, Reports Loss of Consciousness, Denies palpitations and Denies dyspnea Respiratory: Respiratory: Reports no additional respiratory complaints and Denies dyspnea Gastrointestinal: Gastrointestinal: Reports no additional gastrointestinal complaints Musculoskeletal: Musculoskeletal: Reports no additional musculoskeletal complaints Neurologic: Reports system reviewed and no additional complaints, except as documented Psychiatric: Psychiatric: Reports depression Endocrine: Endocrine: Denies fatigue and Denies palpitations [facility] Past Medical History Medical History Atrial fibrillation Coronary artery disease Glaucoma History of pulmonary embolism Hypercholesterolemia Hypertension Irritable bowel syndrome Pacemaker Peripheral neuropathy Post concussive syndrome Protein S deficiency Sick sinus syndrome Stress incontinence Family History Family History Father Heart disease Stroke Mother Heart disease Sister Breast cancer Brother Heart disease Sister Breast cancer Surgical History Surgical History H/O breast surgery History of appendectomy History of D&C History of eye surgery History of hemorrhoidectomy History of hip replacement History of pacemaker History of tonsillectomy and adenoidectomy History of total abdominal hysterectomy and bilateral salpingo-oophorectomy Presence of IVC filter Social History Social History Household Members: Spouse Housing: House Do you presently have visiting nurse or other home services: Yes (once every other week) Alcohol intake: current Alcohol intake frequency: holidays/special occasions only Alcohol type: hard liquor Smoking Status: Never smoker Smoked in Last 30 Days: No Use of substances other than those prescribed or required for medical reasons: No Have you been hit, kicked, punched, or otherwise hurt by someone within the past year? If so, by whom?: No Do you feel safe in your current relationship?: Yes Is there a partner from a previous relationship who is making you feel unsafe now?: No Are you made to feel afraid or neglected: No Advance Directives: No Advance Directives Information Provided: Yes Do you have thoughts of harming others: None Do you have a plan to hurt others: No Plan Recently lost weight without trying: No Meds Allergies Allergy/AdvReac Type Severity Reaction Status Date / Time codeine [Codeine] Allergy Unknown VOMITING Verified 04/30/20 10:33 doxycycline [Doxycycline] Allergy Unknown DIFF Verified 04/30/20 10:33 BREATHING Penicillins Allergy Unknown DIFF Verified 04/30/20 10:33 BREATHING pepper (genus Capsicum) Allergy Unknown Unknown Verified 04/30/20 10:33 tetracycline [Tetracycline] Allergy Unknown DIFF Verified 04/30/20 10:33 BREATHING oxycodone [From PERCOCET] AdvReac Intermediate VOMITING Verified 04/30/20 10:33 epinephrine Allergy Unknown Unknown Uncoded 04/19/20 08:13 From Novocain Allergy Unknown LOWERED BP Uncoded 02/26/20 15:05 - OK IF IT DOES NOT HAVE EPINEPHRINE IN IT toro for MIBI Allergy Unknown headache Uncoded 11/19/19 00:00 most antibiotics Allergy Unknown Unknown Uncoded 04/19/20 08:13 Pt states she CAN take Emycin Allergy Unknown Unknown Uncoded 04/19/20 08:13 Home Medications Medication Instructions Recorded Confirmed Type ascorbic acid (vitamin C) [Vitamin 500 mg PO DAILY 06/02/20 06/02/20 History C] cholecalciferol (vitamin D3) 25 mcg PO DAILY 06/02/20 06/02/20 History [Vitamin D3] cyanocobalamin (vitamin B-12) 1,000 mcg PO DAILY 06/02/20 06/02/20 History [Vitamin B-12] ferrous sulfate 325 mg PO DAILY 06/02/20 06/02/20 History ketoconazole 1 appl TOPICAL 3XW 06/02/20 06/02/20 History lactobacillus combination no.4 3,000 mmu cells PO DAILY 06/02/20 06/02/20 History [Probiotic] warfarin 2.5 mg PO TUFR@1800 06/02/20 06/02/20 History warfarin 5 mg PO SUMOWETHSA@1800 06/02/20 06/02/20 History timolol 1 drp OPHTHALMIC (EYE) DAILY 06/03/20 06/03/20 History Physical Exam Vital Signs: Vital Signs: Last Vital Signs Temp 97.5 F 06/03/20 11:26 Pulse 67 06/03/20 11:26 Resp 18 06/03/20 11:26 BP 120/68 06/03/20 11:26 Pulse Ox 98 06/03/20 11:26 Body Mass Index 19.5 Const: General: cooperative, comfortable, no acute distress, alert, awake and anxious Nutritional Appearance: thin Orientation/consciousness: patient oriented x3 Limitations: no limitations HENMT: Head: Yes normocephalic and Yes atraumatic Eyes: General: appearance normal, both eyes and all related structures Neck: Neck: Yes trachea midline, Yes supple and Yes no JVD Chest: Chest palpation & inspection: normal inspection of the chest Resp: Effort & Inspection: normal respiratory effort Auscultation: clear to auscultation bilaterally Cardio: Jugular venous distension: no JVD Palpation: normal PMI Rate: regular rate Rhythm: regular rhythm Heart sounds: S1 normal heart sound present and S2 normal heart sound present GI: Auscultation: normal bowel sounds Skin: General skin exam: no rashes or lesions noted Neuro: General: patient oriented x3 and no focal motor deficits Extrem: General: Yes no clubbing, cyanosis or edema Psych: Appearance: grossly normal Affect: Anxious affect present Results Labs and Meds Result diagrams: 06/03/20 04:07 06/03/20 04:07 Lab results: Laboratory Results - last 24 hr 06/02/20 06/02/20 06/02/20 20:41 20:41 20:41 WBC 5.0 RBC 4.18 L Hgb 12.8 Hct 38.6 MCV 92.3 MCH 30.6 MCHC 33.2 RDW 15.2 Plt Count 159 L MPV 10.1 Immature Gran % (Auto) 0.4 Neut % (Auto) 68.1 Lymph % (Auto) 19.9 L [place] % (Auto) 9.6 Eos % (Auto) 1.2 Baso % (Auto) 0.8 Lymph # (Auto) 1.0 L [place] # (Auto) 0.5 Eos # (Auto) 0.1 Baso # (Auto) 0.0 Abs Immat Gran (auto) 0.02 Absolute Neuts (auto) 3.4 Absolute Nucleated RBC 0.000 Nucleated RBC % (auto) 0.0 PT INR APTT Sodium 140 Potassium 4.0 Chloride 106 Carbon Dioxide 26 Anion Gap 12 BUN 17 H Creatinine 0.94 Estim Creat Clear Calc 31.3 Estimated GFR 57 Random Glucose 90 Calcium 8.8 Total Bilirubin 0.6 Direct Bilirubin 0.2 AST 32 H ALT 23 Alkaline Phosphatase 75 Troponin I High Sens < 3.5 B-Natriuretic Peptide Total Protein 6.2 L Albumin 3.8 Lipase 44 Urine Color Urine Appearance Urine pH Ur Specific [place] Urine Protein Urine Glucose (UA) Urine Ketones Urine Blood Urine Nitrite Ur Leukocyte Esterase COVID-19 ([facility]) COVID-19 Clin Com 06/02/20 06/02/20 06/02/20 20:41 20:41 22:12 WBC RBC Hgb Hct MCV MCH MCHC RDW Plt Count MPV Immature Gran % (Auto) Neut % (Auto) Lymph % (Auto) [place] % (Auto) Eos % (Auto) Baso % (Auto) Lymph # (Auto) [place] # (Auto) Eos # (Auto) Baso # (Auto) Abs Immat Gran (auto) Absolute Neuts (auto) Absolute Nucleated RBC Nucleated RBC % (auto) PT 28.3 H INR 2.4 H APTT 33.4 Sodium Potassium Chloride Carbon Dioxide Anion Gap BUN Creatinine Estim Creat Clear Calc Estimated GFR Random Glucose Calcium Total Bilirubin Direct Bilirubin AST ALT Alkaline Phosphatase Troponin I High Sens B-Natriuretic Peptide 140 H Total Protein Albumin Lipase Urine Color Urine Appearance Urine pH Ur Specific [place] Urine Protein Urine Glucose (UA) Urine Ketones Urine Blood Urine Nitrite Ur Leukocyte Esterase COVID-19 ([facility]) Negative COVID-19 Clin Com See Note 06/02/20 06/03/20 06/03/20 23:28 04:07 04:07 WBC 4.3 L RBC 3.83 L Hgb 11.1 L Hct 34.4 L MCV 89.8 MCH 29.0 MCHC 32.3 RDW 15.2 Plt Count 156 L MPV 10.3 Immature Gran % (Auto) 0.2 Neut % (Auto) 57.4 Lymph % (Auto) 27.0 [place] % (Auto) 13.5 H Eos % (Auto) 1.2 Baso % (Auto) 0.7 Lymph # (Auto) 1.2 [place] # (Auto) 0.6 Eos # (Auto) 0.1 Baso # (Auto) 0.0 Abs Immat Gran (auto) 0.01 Absolute Neuts (auto) 2.5 Absolute Nucleated RBC 0.000 Nucleated RBC % (auto) 0.0 PT INR APTT Sodium 139 Potassium 4.0 Chloride 108 Carbon Dioxide 27 Anion Gap 8 L BUN 19 H Creatinine 0.79 Estim Creat Clear Calc 37.2 Estimated GFR > 60 Random Glucose 96 Calcium 8.3 L Total Bilirubin Direct Bilirubin AST ALT Alkaline Phosphatase Troponin I High Sens B-Natriuretic Peptide Total Protein Albumin Lipase Urine Color YELLOW Urine Appearance CLEAR Urine pH 7.5 Ur Specific [place] 1.015 Urine Protein NEG Urine Glucose (UA) NEG Urine Ketones NEG Urine Blood NEG Urine Nitrite NEG Ur Leukocyte Esterase NEG COVID-19 ([facility]) COVID-19 Clin Com 06/03/20 07:16 WBC RBC Hgb Hct MCV MCH MCHC RDW Plt Count MPV Immature Gran % (Auto) Neut % (Auto) Lymph % (Auto) [place] % (Auto) Eos % (Auto) Baso % (Auto) Lymph # (Auto) [place] # (Auto) Eos # (Auto) Baso # (Auto) Abs Immat Gran (auto) Absolute Neuts (auto) Absolute Nucleated RBC Nucleated RBC % (auto) PT 27.8 H INR 2.3 H APTT Sodium Potassium Chloride Carbon Dioxide Anion Gap BUN Creatinine Estim Creat Clear Calc Estimated GFR Random Glucose Calcium Total Bilirubin Direct Bilirubin AST ALT Alkaline Phosphatase Troponin I High Sens B-Natriuretic Peptide Total Protein Albumin Lipase Urine Color Urine Appearance Urine pH Ur Specific [place] Urine Protein Urine Glucose (UA) Urine Ketones Urine Blood Urine Nitrite Ur Leukocyte Esterase COVID-19 ([facility]) COVID-19 Clin Com Pacemaker evaluation bedside. Medtronic dual-chamber pacemaker noted. Programmed in DDD at 60 beats per minute. Atrial pacing about 68% of the time. Minimal ventricular pacing noted. No arrhythmias noted around the time she had the episode. Atrial pacing thresholds excellent and reprogrammed to enhance [place] life. Ventricular pacing thresholds adequate and reprogrammed to enhance safety. Pacing lead impedance is stable. Battery life is adequate about 13 months. EKG shows sinus rhythm first-degree AV block with left axis deviation Assessment and Plan (1) Loss of consciousness: Status: Acute Patient presents with a loss of consciousness episode after meal. She had a very prolonged loss of consciousness, which is inconsistent with orthostatic or vasovagal type of syncope. Also there is no overt cardiac arrhythmias noted on pacer telemetry in pacemaker function is normal. Unlikely that this represents a cardiac etiology. Given a prolonged loss of consciousness, neurological cause such as seizure disorder needs to be ruled out. CT brain is within normal limits. Consider neurology consultation. No further cardiac workup is indicated at this time. Her recent myocardial perfusion imaging was within normal limits with normal gated LV systolic function. Pacemaker function is benign and was reprogrammed for adequate function. Will follow up in the clinic in [address] Serrano.
--- NOTE | 2020-06-03 12:53 | MHC.CM.PN ---
Female 84 DX Syncope, Work up in progress. She lives with spouse. She is independent all functional mobility. DP home no services family transport.
[2020-06-03] MEDS: Warfarin Sodium 5 MG TABLET PO (16:31)
--- NOTE | 2020-06-03 18:11 | P.PNIM_ITS ---
Subjective Subjective Date of Service: 06/03/20 Interval History: the patient was seen and evaluated this morning Laying in bed, feels comfortable Denies any fever, chills or shortness of breath No reported other overnight events. Systemic review: No fever, chills or weakness No chest pain, palpitation No shortness of breath or coughing No abdominal pain, nausea or vomiting No urinary symptoms No any rash or wounds Physical Exam 2 Vital Signs: Vital Signs: Last Vital Signs Temp 97.9 F 06/03/20 15:30 Pulse 60 06/03/20 15:30 Resp 18 06/03/20 15:30 BP 117/59 L 06/03/20 15:30 Pulse Ox 95 06/03/20 15:30 Body Mass Index 19.5 Constitutional : Alert, oriented, not in distress Neck : Normal inspection, Supple Cardiovascular : RRR, S1 S2, no lower extremity edema Respiratory : Good bilateral air entry, no crackles, wheezes or rhonchi Gastrointestinal: soft, lax, Normal bowel sounds, Non tender Skin : Warm/Dry, No rash Neurological : Alert & oriented x3, No focal deficit Objective Data Current Medications Generic Name Dose Route Start Last Admin Trade Name Freq PRN Reason Stop Dose Admin Acetaminophen 650 mg 06/03/20 00:23 Acetaminophen 325 Mg Tablet PO Q6H PRN Pain, Mild (Pain Scale 1-3) Ascorbic Acid 500 mg 06/03/20 09:00 06/03/20 11:29 Ascorbic Acid 500 Mg Tablet PO 500 mg DAILY [facility] Administration Atorvastatin Calcium 10 mg 06/03/20 21:00 Atorvastatin Calcium 10 Mg Tablet PO BEDTIME [facility] Cyanocobalamin 1,000 mcg 06/03/20 09:00 06/03/20 11:29 Cyanocobalamin (Vitamin B-12) 1,000 Mcg Tablet PO 1,000 mcg DAILY [facility] Administration Docusate Sodium 100 mg 06/03/20 00:23 Docusate Sodium 100 Mg Capsule PO DAILY PRN Constipation Flecainide Acetate 50 mg 06/03/20 09:00 06/03/20 11:28 Flecainide Acetate 50 Mg Tablet PO 50 mg BID [facility] Administration Ketoconazole 1 appl 06/04/20 09:00 Ketoconazole 2 % Shampoo 120 Ml Btl TOPICAL MoWeFr@0900 [facility] Protocol Metoprolol Succinate 25 mg 06/03/20 09:00 06/03/20 11:28 Metoprolol Succinate Er 25 Mg Tab.Er.24h PO 25 mg DAILY [facility] Administration Protocol Ondansetron HCl 4 mg 06/03/20 00:23 Ondansetron Hcl 4 Mg/2 Ml Vial IVPUSH Q8H PRN Nausea and Vomiting Pharmacy Consult 1 each 06/02/20 19:59 Consult Rx Perform Med Rec MISCELLANE ONCE PRN Consult order Pharmacy Consult 1 each 06/02/20 22:42 Consult Rx Perform Med Rec MISCELLANE ONCE PRN Consult order Sodium Chloride 3 ml 06/03/20 00:23 06/03/20 16:32 0.9 % Sodium Chloride Flush 3 Ml Syringe IVFLUSH 3 ml QSHIFT [facility] Administration Vitamin D 25 mcg 06/03/20 09:00 06/03/20 11:29 Cholecalciferol (Vitamin D3) 25 Mcg Tablet PO 25 mcg DAILY [facility] Administration Warfarin Sodium 2.5 mg 06/04/20 16:00 Warfarin Sodium 2.5 Mg Tablet PO TuFr@1600 [facility] Warfarin Sodium 5 mg 06/03/20 16:00 06/03/20 16:31 Warfarin Sodium 5 Mg Tablet PO 5 mg [id number]@1600 [facility] Administration Labs CBC & Chem 7: 06/03/20 04:07 06/03/20 04:07 Assessment and Plan (1) Syncope: Status: Acute (2) Atrial fibrillation: Problem details: Dr. Serrano Status: Acute (3) Sick sinus syndrome: Status: Acute (4) Hypertension: Status: Acute (5) Coronary artery disease: Status: Acute Assessment and Plan: This is a 84-year-old female with past medical history as mentioned above includes AFib, CAD, as well as sick sinus syndrome status post pacemaker who presents to the hospital with complaints of syncopal episode Syncope and collapse It scan negative for any acute findings Not cardiogenic as interrogation was negative for any acute findings This likely vasovagal but still could be a long shot next Lyme consider seizure activity but no abnormal movement reported To get Neurology evaluation Consider EEG Pending echo AFib INR currently of 2.4 continue Coumadin, continue metoprolol sick sinus syndrome pacemaker in place EKG as above with no recent changes will need interrogation CAD continue metoprolol and statin DVT prophylaxis warfarin
[2020-06-03] MEDS: Atorvastatin Calcium 10 MG TABLET PO (21:56)
[2020-06-04] VITALS (7 sets, daily range): BP systolic 101–109; BP diastolic 51–58; PULSE 59–70; RESP 16–18; TEMP 35.8–36.8; O2SAT 95–99
[2020-06-04] MEDS: 0.9 % Sodium Chloride Flush 3 ML SYRINGE IVFLUSH ×3 (00:43→17:14)
[2020-06-04 06:57] LABS: Hematocrit 36.7 % (37-47); Mean Corpuscular HGB Conc 32.7 g/dl (31.0-35.0); Mean Corpuscular Hemoglobin 29.3 pg (27.0-33.0); Mean Corpuscular Volume 89.7 fL (80-98); Mean Platelet Volume 10.5 fL (9.4-12.3); Platelet Count 152 X10*3/uL (160-400); Red Blood Count 4.09 X10*6/uL (4.20-5.50); Red Cell Distribution Width 15.3 % (11.0-16.0); White Blood Count 4.6 X10*3/uL (4.8-10.8)
[2020-06-04 07:20] LABS: Anion Gap 9 (12-20); Blood Urea Nitrogen 16 mg/dL (9-16); Calcium 8.2 mg/dL (8.4-10.2); Carbon Dioxide 25 mmol/L (22-29); Chloride 107 mmol/L (96-108); Creatinine Clr Calc Pharmacy 43.3; Estimated Glomerular Filt Rate > 60; Glucose Random 84 mg/dL (60-115); Potassium 3.9 mmol/l (3.3-5.1); Sodium 137 mmol/L (135-145)
[2020-06-04] MEDS: Flecainide Acetate 50 MG TABLET PO ×2 (08:24→21:01)
[2020-06-04] MEDS: Ascorbic Acid 500 MG TABLET PO (08:24)
[2020-06-04] MEDS: Cholecalciferol (Vitamin D3) 25 MCG TABLET PO (08:24)
[2020-06-04] MEDS: Cyanocobalamin (Vitamin B-12) 1,000 MCG TABLET 1000 MCG PO (08:25)
--- NOTE | 2020-06-04 09:50 | PM.NEUROCN ---
History of Present Illness Data of Consult Service Date: 06/04/20 Primary Care Provider: Unknown Physician 84 years old woman with underlying history of atrial fibrillation and cardiac pacemaker who was having dinner with her family without any problems and without any recent illness when something suddenly happened to her. She said that suddenly she could not hear people around her like everything was spacing out. Then she had the same problem with her eyes like everything was going away. Or fading away. At some point she lost consciousness and said that she was out for many minutes. Review of Systems Review of Systems: No recent cold or flu-like illness trauma or exposure to new drug or medicine. Neurologic: Reports system reviewed and no additional complaints, except as documented PMFSH Past Medical History Medical History Atrial fibrillation Coronary artery disease Glaucoma History of pulmonary embolism Hypercholesterolemia Hypertension Irritable bowel syndrome Pacemaker Peripheral neuropathy Post concussive syndrome Protein S deficiency Sick sinus syndrome Stress incontinence Family History Family History Father Heart disease Stroke Mother Heart disease Sister Breast cancer Brother Heart disease Sister Breast cancer Surgical History Surgical History H/O breast surgery History of appendectomy History of D&C History of eye surgery History of hemorrhoidectomy History of hip replacement History of pacemaker History of tonsillectomy and adenoidectomy History of total abdominal hysterectomy and bilateral salpingo-oophorectomy Presence of IVC filter Social History Social History Household Members: Spouse Housing: House Do you presently have visiting nurse or other home services: Yes (once every other week) Alcohol intake: current Alcohol intake frequency: holidays/special occasions only Alcohol type: hard liquor Smoking Status: Never smoker Smoked in Last 30 Days: No Use of substances other than those prescribed or required for medical reasons: No Currently Displaying Signs/Symptoms of Drug Intoxication Withdrawal: No Have you been hit, kicked, punched, or otherwise hurt by someone within the past year? If so, by whom?: No Do you feel safe in your current relationship?: Yes Is there a partner from a previous relationship who is making you feel unsafe now?: No Are you made to feel afraid or neglected: No Advance Directives: No Advance Directives Information Provided: Yes Do you have thoughts of harming others: None Do you have a plan to hurt others: No Plan Recently lost weight without trying: No service: No Current occupational status: retired Meds Allergies Allergy/AdvReac Type Severity Reaction Status Date / Time codeine [Codeine] Allergy Unknown VOMITING Verified 04/30/20 10:33 doxycycline [Doxycycline] Allergy Unknown DIFF Verified 04/30/20 10:33 BREATHING Penicillins Allergy Unknown DIFF Verified 04/30/20 10:33 BREATHING pepper (genus Capsicum) Allergy Unknown Unknown Verified 04/30/20 10:33 tetracycline [Tetracycline] Allergy Unknown DIFF Verified 04/30/20 10:33 BREATHING oxycodone [From PERCOCET] AdvReac Intermediate VOMITING Verified 04/30/20 10:33 epinephrine Allergy Unknown Unknown Uncoded 04/19/20 08:13 From Novocain Allergy Unknown LOWERED BP Uncoded 02/26/20 15:05 - OK IF IT DOES NOT HAVE EPINEPHRINE IN IT toro for MIBI Allergy Unknown headache Uncoded 11/19/19 00:00 most antibiotics Allergy Unknown Unknown Uncoded 04/19/20 08:13 Pt states she CAN take Emycin Allergy Unknown Unknown Uncoded 04/19/20 08:13 Home Medications Medication Instructions Recorded Confirmed Type ascorbic acid (vitamin C) [Vitamin 500 mg PO DAILY 06/02/20 06/02/20 History C] cholecalciferol (vitamin D3) 25 mcg PO DAILY 06/02/20 06/02/20 History [Vitamin D3] cyanocobalamin (vitamin B-12) 1,000 mcg PO DAILY 06/02/20 06/02/20 History [Vitamin B-12] ferrous sulfate 325 mg PO DAILY 06/02/20 06/02/20 History ketoconazole 1 appl TOPICAL 3XW 06/02/20 06/02/20 History lactobacillus combination no.4 3,000 mmu cells PO DAILY 06/02/20 06/02/20 History [Probiotic] warfarin 2.5 mg PO TUFR@1800 06/02/20 06/02/20 History warfarin 5 mg PO SUMOWETHSA@1800 06/02/20 06/02/20 History timolol 1 drp OPHTHALMIC (EYE) DAILY 06/03/20 06/03/20 History Physical Exam Vital Signs: Vital Signs: Last Vital Signs Temp 97.1 F 06/04/20 09:10 Pulse 66 06/04/20 09:10 Resp 18 06/04/20 09:10 BP 102/58 L 06/04/20 09:10 Pulse Ox 96 06/04/20 09:10 Body Mass Index 19.5 She was alert and awake with normal spontaneity of speech fluency comprehension and affect. Pupils were equal reactive to light extraocular muscles are intact. Visual wall are full. Face was symmetrical. There was no pronator drift. Deep tendon reflexes were trace to absent with flexor plantars. Affect was slightly anxious. Results Labs CBC & Chem 7: 06/04/20 06:03 06/04/20 06:03 Labs: Short CBC 06/04/20 Range/Units 06:03 WBC 4.6 L (4.8-10.8) X10*3/uL Hgb 12.0 (12.0-16.0) g/dl Hct 36.7 L (37-47) % Plt Count 152 L (160-400) X10*3/uL BMP 06/04/20 06:03 Sodium 137 Potassium 3.9 Chloride 107 Carbon Dioxide 25 BUN 16 Creatinine 0.68 Calcium 8.[address] L Her noncontrast head CT revealed mild diffuse cerebral atrophy and mild microvascular ischemic changes. Assessment and Plan (1) Loss of consciousness: Status: Acute 84 years old woman with underlying history of microvascular disease likely had a complex partial secondarily generalized seizure. Now she was back to baseline with no focal abnormality or confusion. She remembered part of the event. Recommendations: Start levetiracetam 250 mg twice a day. Otherwise she could be discharged and follow me as an outpatient.
[2020-06-04] MEDS: levETIRAcetam 250 MG TABLET PO ×2 (11:43→21:01)
[2020-06-04] MEDS: Throat Lozenge, Medicated LOZENGE 2 LOZENGE MUCOUS MEM (11:44)
[2020-06-04] MEDS: timoloL maleate 0.5 % Oph Sol 5 ML DRBTL 1 DROP EYE-BOTH ×2 (13:48→21:02)
--- NOTE | 2020-06-04 14:03 | HO.PM.IMPN ---
Subjective Subjective Date of Service: 06/04/20 Interval History: the patient was seen and evaluated this morning Laying in bed, feels comfortable Denies any fever, chills or shortness of breath No reported other overnight events. Systemic review: No fever, chills or weakness No chest pain, palpitation No shortness of breath or coughing No abdominal pain, nausea or vomiting No urinary symptoms No any rash or wounds Physical Exam Vital Signs: Vital Signs: Last Vital Signs Temp 96.7 F L 06/04/20 12:00 Pulse 66 06/04/20 09:10 Resp 18 06/04/20 09:10 BP 102/58 L 06/04/20 09:10 Pulse Ox 96 06/04/20 09:10 Body Mass Index 19.5 Constitutional : Alert, oriented, not in distress Neck : Normal inspection, Supple Cardiovascular : RRR, S1 S2, no lower extremity edema Respiratory : Good bilateral air entry, no crackles, wheezes or rhonchi Gastrointestinal: soft, lax, Normal bowel sounds, Non tender Skin : Warm/Dry, No rash Neurological : Alert & oriented x3, No focal deficit Objective Data Current Medications Generic Name Dose Route Start Last Admin Trade Name Freq PRN Reason Stop Dose Admin Acetaminophen 650 mg 06/03/20 00:23 Acetaminophen 325 Mg Tablet PO Q6H PRN Pain, Mild (Pain Scale 1-3) Ascorbic Acid 500 mg 06/03/20 09:00 06/04/20 08:24 Ascorbic Acid 500 Mg Tablet PO 500 mg DAILY [facility] Administration Atorvastatin Calcium 10 mg 06/03/20 21:00 06/03/20 21:56 Atorvastatin Calcium 10 Mg Tablet PO 10 mg BEDTIME [facility] Administration Cyanocobalamin 1,000 mcg 06/03/20 09:00 06/04/20 08:25 Cyanocobalamin (Vitamin B-12) 1,000 Mcg Tablet PO 1,000 mcg DAILY [facility] Administration Docusate Sodium 100 mg 06/03/20 00:23 Docusate Sodium 100 Mg Capsule PO DAILY PRN Constipation Flecainide Acetate 50 mg 06/03/20 09:00 06/04/20 08:24 Flecainide Acetate 50 Mg Tablet PO 50 mg BID [facility] Administration Ketoconazole 1 appl 06/04/20 09:00 06/04/20 08:44 Ketoconazole 2 % Shampoo 120 Ml Btl TOPICAL Not Given MoWeFr@0900 [facility] Protocol Levetiracetam 250 mg 06/04/20 11:30 06/04/20 11:43 Levetiracetam 250 Mg Tablet PO 250 mg BID [facility] Administration Metoprolol Succinate 25 mg 06/03/20 09:00 06/04/20 08:24 Metoprolol Succinate Er 25 Mg Tab.Er.24h PO Not Given DAILY [facility] Protocol Ondansetron HCl 4 mg 06/03/20 00:23 Ondansetron Hcl 4 Mg/2 Ml Vial IVPUSH Q8H PRN Nausea and Vomiting Pharmacy Consult 1 each 06/02/20 19:59 Consult Rx Perform Med Rec MISCELLANE ONCE PRN Consult order Pharmacy Consult 1 each 06/02/20 22:42 Consult Rx Perform Med Rec MISCELLANE ONCE PRN Consult order Sodium Chloride 3 ml 06/03/20 00:23 06/04/20 08:25 0.9 % Sodium Chloride Flush 3 Ml Syringe IVFLUSH 3 ml QSHIFT [facility] Administration Timolol Maleate 1 drop 06/04/20 11:30 06/04/20 13:48 Timolol Maleate 0.5 % Oph Luz Elena 5 Ml Drbtl EYE-BOTH 1 drop BID [facility] Administration Vitamin D 25 mcg 06/03/20 09:00 06/04/20 08:24 Cholecalciferol (Vitamin D3) 25 Mcg Tablet PO 25 mcg DAILY [facility] Administration Warfarin Sodium 2.5 mg 06/04/20 16:00 Warfarin Sodium 2.5 Mg Tablet PO TuFr@1600 [facility] Warfarin Sodium 5 mg 06/03/20 16:00 06/03/20 16:31 Warfarin Sodium 5 Mg Tablet PO 5 mg [id number]@1600 [facility] Administration Labs CBC & Chem 7: 06/04/20 06:03 06/04/20 06:03 Assessment and Plan (1) Syncope: Status: Acute (2) Atrial fibrillation: Problem details: Dr. Serrano Status: Acute (3) Sick sinus syndrome: Status: Acute (4) Hypertension: Status: Acute (5) Coronary artery disease: Status: Acute Assessment and Plan: This is a 84-year-old female with past medical history as mentioned above includes AFib, CAD, as well as sick sinus syndrome status post pacemaker who presents to the hospital with complaints of syncopal episode Syncope and collapse CT scan negative for any acute findings Not cardiogenic as interrogation was negative for any acute findings Within normal echo Cardiology input appreciated, unlikely to be vasovagal or S the arrhythmia related Neurology input appreciated, likely a seizure attack To start Keppra 250 b.i.d. to follow with Neurology as outpatient for further evaluation Recurrent falls Pending PT evaluation AFib INR currently of 2.4 continue Coumadin, continue metoprolol sick sinus syndrome pacemaker in place EKG as above with no recent changes will need interrogation CAD continue metoprolol and statin DVT prophylaxis warfarin
--- NOTE | 2020-06-04 14:26 | MHC.CM.PN ---
[facility] NO SERVICES. PT IS INDEPENDENT. FAMIL WILL TRANSPORT AT [place]. CM WILL FOLLOW.
[2020-06-04] MEDS: Warfarin Sodium 2.5 MG TABLET PO (17:14)
[2020-06-04] MEDS: Atorvastatin Calcium 10 MG TABLET PO (21:01)
[2020-06-05 00:03] VITALS: BP 92/48; PULSE 59; RESP 18; TEMP 36; O2SAT 96
[2020-06-05] MEDS: 0.9 % Sodium Chloride Flush 3 ML SYRINGE IVFLUSH ×2 (00:31→11:01)
[2020-06-05 04:29] VITALS: BP 126/69; PULSE 60; RESP 18; TEMP 36.8; O2SAT 97
[2020-06-05 07:25] LABS: Anion Gap 10 (12-20); Blood Urea Nitrogen 17 mg/dL (9-16); Calcium 8.4 mg/dL (8.4-10.2); Carbon Dioxide 26 mmol/L (22-29); Chloride 107 mmol/L (96-108); Estimated Glomerular Filt Rate > 60; Glucose Random 78 mg/dL (60-115); Potassium 4.2 mmol/l (3.3-5.1); Sodium 139 mmol/L (135-145)
[2020-06-05 08:00] VITALS: BP 120/61; PULSE 60; RESP 18; TEMP 36.4; O2SAT 99
[2020-06-05 09:40] VITALS: BP 120/61; PULSE 60; O2SAT 99
[2020-06-05] MEDS: Ascorbic Acid 500 MG TABLET PO (11:01)
[2020-06-05] MEDS: Cyanocobalamin (Vitamin B-12) 1,000 MCG TABLET 1000 MCG PO (11:01)
[2020-06-05] MEDS: Cholecalciferol (Vitamin D3) 25 MCG TABLET PO (11:01)
[2020-06-05] MEDS: levETIRAcetam 250 MG TABLET PO (11:02)
[2020-06-05] MEDS: Metoprolol Succinate ER 25 MG TAB.ER.24H PO (11:02)
[2020-06-05] MEDS: Flecainide Acetate 50 MG TABLET PO (11:02)
[2020-06-05] MEDS: timoloL maleate 0.5 % Oph Sol 5 ML DRBTL 1 DROP EYE-BOTH (11:11)
[2020-06-05 12:00] VITALS: BP 122/58; PULSE 64; RESP 18; TEMP 36.5; O2SAT 97
[2020-06-05 12:30] LABS: INTERNATIONAL NORM RATIO 1.5 (0.9-1.1); Prothrombin Time 18.4 SEC (10.8-13.0)
--- NOTE | 2020-06-05 12:32 | MHC.CM.PN ---
PT WILL BE GOING HOIME WITH NS WHO WILL THAT DR RUIZ IS [facility] ON SUNDAY
--- NOTE | 2020-06-05 18:10 | PM.DS ---
DS: Providers Provider Date of admission: 06/02/20 23:20 Primary care physician: Unknown Physician Consults: 06/03/20 09:17 Consult to Cardiology Routine Consulting Provider: [place] Reason for consultation: Syncopla episode for your kind eval and pacemaker interrogation 06/03/20 13:35 Consult to Neurology Routine Consulting Provider: [facility] Reason for consultation: Evaluation of syncopal episode, eval possible seizure? DS: Diagnosis Discharge Diagnosis (1) Syncope: Status: Acute (2) Atrial fibrillation: Status: Acute (3) Sick sinus syndrome: Status: Acute (4) Hypertension: Status: Acute (5) Coronary artery disease: Status: Acute (6) Difficulty swallowing: Status: Acute (7) Current use of anticoagulant therapy: Status: Acute (8) Loss of consciousness: Status: Acute DS: Medications Discharge Medications Home Medications: Home Medications Medication Instructions Recorded Confirmed Probiotic 3,000 mmu cells PO DAILY 06/02/20 06/02/20 ascorbic acid (vitamin C) [Vitamin 500 mg PO DAILY 06/02/20 06/02/20 C] cholecalciferol (vitamin D3) 25 mcg PO DAILY 06/02/20 06/02/20 [Vitamin D3] cyanocobalamin (vitamin B-12) 1,000 mcg PO DAILY 06/02/20 06/02/20 [Vitamin B-12] ferrous sulfate 325 mg PO DAILY 06/02/20 06/02/20 ketoconazole 1 appl TOPICAL 3XW 06/02/20 06/02/20 warfarin 2.5 mg PO TUFR@1800 06/02/20 06/02/20 warfarin 5 mg PO SUMOWETHSA@1800 06/02/20 06/02/20 timolol 1 drp OPHTHALMIC (EYE) DAILY 06/03/20 06/03/20 Previous Rx's Medication Instructions Recorded warfarin 5 mg tablet 5 mg PO .COMPLEX #90 tab 03/12/20 simvastatin 10 mg tablet 10 mg PO BEDTIME #90 tab 04/20/20 flecainide 50 mg tablet 50 mg PO BID #180 tab 05/16/20 metoprolol succinate 25 mg 25 mg PO DAILY #90 tab 05/16/20 tablet,extended release 24 hr levetiracetam 250 mg PO BID #60 tab 06/05/20 DS: Summary Hospital Course Hospital Course: Admission note HPI This is an 84-year-old female with past medical history of AFib with pacemaker, CAD, history of PE status post IVC filter, HLD, HTN, IBS, sick sinus syndrome, who presents to the hospital with complaints of syncopal episode. Patient reports that she was at the dining table having dinner with her , granddaughter and grandson when all the sudden she passed out. She does not remember what happened completely but the last thing she remembers was that she was eating dinner and all of a sudden she started feeling strange, did not know was happening, became cloudy in thought, and the next thing she remembers she woke up on the floor confused as to how she got there. She denies having any palpitations, vertigo, dizziness, chest pain, or shortness of breath prior to the episode occurring. She was slightly confused when she woke up but had no weakness numbness or tingling. She did not have any stroke-like activity. She had no nausea or vomiting. No diarrhea constipation or loss of bowel or bladder control. Has not has similar episode to this in the past but has fallen otherwise. To the ED hemodynamically stable with blood pressure of 111/63, heart rate of 72, respiratory rate of 18, satting 97% on room air Labs are significant for hemoglobin of 12.8, hematocrit of 38.6, sodium of 140, potassium of 4.0, BUN of 17, creatinine of 0.94, BNP of 140, troponin negative Sinus rhythm with first-degree AV block, left axis deviation, with no significant change as compared to EKG from September 2018 Shows no acute intrathoracic disease Hospital course This is a 84-year-old female with past medical history as mentioned above includes AFib, CAD, as well as sick sinus syndrome status post pacemaker who presents to the hospital with complaints of syncopal episode Syncope and collapse CT scan negative for any acute findings Not cardiogenic as interrogation was negative for any acute findings Within normal echo Cardiology input appreciated, unlikely to be vasovagal or arrhythmia related Neurology Dr. Gimenez input appreciated, likely a seizure attack. Recommended starting Keppra and to follow-up as outpatient for further evaluation in the clinic. No further episodes of syncope or near-syncope happened with the patient was in the hospital. No abnormal rhythm was noted on telemetry. Started with Keppra 250 b.i.d. to be continued at time of discharge. to follow with Neurology as outpatient for further evaluation Recurrent falls Evaluated by Physical therapy who recommended home PT. Difficulty swallowing Patient report chronic problem with swallowing mainly after having falls. Evaluated by DIRECTOR OF CONSERVATION team who recommended thickened fluid with regular diet. To follow-up as outpatient with DIRECTOR OF CONSERVATION team to do MBBS study. Time Spent with Patient Time attestation: Total time spent providing and/or coordinating discharge services: Physical Exam Vital Signs: Vital Signs: Last Vital Signs Temp 97.7 F 06/05/20 12:00 Pulse 64 06/05/20 12:00 Resp 18 06/05/20 12:00 BP 122/58 L 06/05/20 12:00 Pulse Ox 97 06/05/20 12:00 Body Mass Index 19.5 Constitutional : Alert, oriented, not in distress Neck : Normal inspection, Supple Cardiovascular : Irregular irregular, S1 S2, no lower extremity edema Respiratory : Good bilateral air entry, no crackles, wheezes or rhonchi Gastrointestinal: soft, lax, Normal bowel sounds, Non tender Skin : Warm/Dry, No rash Neurological : Alert & oriented x3, No focal deficit DS: Data Data Completed and Pending Labs on day of discharge: 06/02/20 19:59 Vital Signs, Orthostatic NOW XR chest 1V Stat Consult Rx Perform Med Rec 1 each MISCELLANE ONCE PRN 06/02/20 20:00 ECG 12 lead EKG Stat EKG Documentation DIRECTED CT head/brain wo con Stat 06/02/20 20:41 B Type Natriuretic Peptide Stat Basic Metabolic Panel Stat Complete Blood Count Auto Diff Stat Lipase Stat Liver Panel Stat Partial Thromboplastin Time Stat Prothrombin Time INR Stat Troponin-I High Sensitivity Stat 06/02/20 22:12 COVID-19 ID NOW (Grewal) Stat 06/02/20 22:42 Consult Rx Perform Med Rec 1 each MISCELLANE ONCE PRN 06/02/20 23:14 Transfer Order Routine 06/02/20 23:16 Code Status Routine 06/02/20 23:28 UA CC w/rflx Micro + Cult Stat 06/03/20 00:23 0.9 % Sodium Chloride Flush [NS Flush] 3 ml IVFLUSH QSHIFT Acetaminophen [Tylenol] 650 mg PO Q6H PRN Docusate Sodium [Colace] 100 mg PO DAILY PRN ondansetron HCL [Zofran] 4 mg IVPUSH Q8H PRN 06/03/20 00:23 CA echo transthoracic complete Routine Ambulate QSHIFT WHILE AWAKE Cont. Telemetry w/Vital Sign limit Q4HR IV insert/maintain Q4HR Intake and Output Q8HR Pulse Oximetry Q4HR Vital Signs Q4HR 06/03/20 04:07 Basic Metabolic Panel Routine Complete Blood Count Auto Diff Routine 06/03/20 05:53 Lactated Ringers [Lr] 500 ml IVCONT 500 mls/hr 06/03/20 06:04 Vital Signs, Orthostatic NOW 06/03/20 07:16 Prothrombin Time INR DAILY 06/03/20 09:00 Ascorbic Acid [Vitamin C] 500 mg PO DAILY Cholecalciferol (Vitamin D3) [Vitamin D3] 25 mcg PO DAILY Cyanocobalamin (Vitamin B-12) [Vitamin B-12] 1,000 mcg PO DAILY Flecainide Acetate [Tambocor] 50 mg PO BID Metoprolol Succinate ER [Toprol XL] 25 mg PO DAILY 06/03/20 16:00 Warfarin Sodium [Coumadin] 5 mg PO SuMoWeThSa@1600 06/03/20 21:00 Atorvastatin Calcium [Lipitor] 10 mg PO BEDTIME 06/04/20 06:03 Basic Metabolic Panel DAILY@0600 Complete Blood Count no Diff DAILY@0600 06/04/20 09:00 Ketoconazole 2 % Shampoo [Nizoral 2 % Shampoo] 1 appl TOPICAL MoWeFr@0900 06/04/20 11:28 Throat Lozenge, Medicated [Cepacol] 2 lozenge MUCOUS MEM ONCE ONE 06/04/20 11:30 levETIRAcetam [Keppra] 250 mg PO BID timoloL maleate 0.5 % Oph Kim [Timoptic 0.5 % Oph Kim] 1 drop EYE-BOTH BID 06/04/20 12:17 Physical Therapy Eval & Treat NEEDED 06/04/20 16:00 Warfarin Sodium [Coumadin] 2.5 mg PO TuFr@1600 06/05/20 05:57 Basic Metabolic Panel DAILY@0600 06/05/20 11:57 Prothrombin Time INR Stat 06/05/20 12:41 Speech Therapy Consult .Routine Laboratory Last Values WBC 4.6 X10*3/uL (4.8-10.8) L 06/04/20 06:03 RBC 4.09 X10*6/uL (4.20-5.50) L 06/04/20 06:03 Hgb 12.0 g/dl (12.0-16.0) 06/04/20 06:03 Hct 36.7 % (37-47) L 06/04/20 06:03 MCV 89.7 fL (80-98) 06/04/20 06:03 MCH 29.3 pg (27.0-33.0) 06/04/20 06:03 MCHC 32.7 g/dl (31.0-35.0) 06/04/20 06:03 RDW 15.3 % (11.0-16.0) 06/04/20 06:03 Plt Count 152 X10*3/uL (160-400) L 06/04/20 06:03 MPV 10.5 fL (9.4-12.3) 06/04/20 06:03 Immature Gran % (Auto) 0.2 % (0.0-0.4) 06/03/20 04:07 Neut % (Auto) 57.4 % (45-73) 06/03/20 04:07 Lymph % (Auto) 27.0 % (20-40) 06/03/20 04:07 [place] % (Auto) 13.5 % (2-11) H 06/03/20 04:07 Eos % (Auto) 1.2 % (0-4) 06/03/20 04:07 Baso % (Auto) 0.7 % (0-2) 06/03/20 04:07 Lymph # (Auto) 1.2 X10*3/uL (1.2-4.9) 06/03/20 04:07 [place] # (Auto) 0.6 X10*3/uL (0.1-1.2) 06/03/20 04:07 Eos # (Auto) 0.1 X10*3/uL (0.0-0.4) 06/03/20 04:07 Baso # (Auto) 0.0 X10*3/uL (0.0-0.2) 06/03/20 04:07 Abs Immat Gran (auto) 0.01 X10*3/uL (0.00-0.03) 06/03/20 04:07 Absolute Neuts (auto) 2.5 X10*3/uL (2.0-8.3) 06/03/20 04:07 Absolute Nucleated RBC 0.000 X10*3/uL (0.0-0.012) 06/04/20 06:03 Nucleated RBC % (auto) 0.0 /100WBC (0.0-0.2) 06/04/20 06:03 PT 18.4 SEC (10.8-13.0) H D 06/05/20 11:57 INR 1.5 (0.9-1.1) H 06/05/20 11:57 APTT 33.4 SEC (24.1-38.0) 06/02/20 20:41 Sodium 139 mmol/L (135-145) 06/05/20 05:57 Potassium 4.2 mmol/l (3.3-5.1) 06/05/20 05:57 Chloride 107 mmol/L (96-108) 06/05/20 05:57 Carbon Dioxide 26 mmol/L (22-29) 06/05/20 05:57 Anion Gap 10 (12-20) L 06/05/20 05:57 BUN 17 mg/dL (9-16) H 06/05/20 05:57 Creatinine 0.70 mg/dL (0.5-1.4) 06/05/20 05:57 Estim Creat Clear Calc 42.0 06/05/20 05:57 Estimated GFR > 60 06/05/20 05:57 Random Glucose 78 mg/dL (60-115) 06/05/20 05:57 Calcium 8.4 mg/dL (8.4-10.2) 06/05/20 05:57 Total Bilirubin 0.6 mg/dL (0.0-1.0) 06/02/20 20:41 Direct Bilirubin 0.2 mg/dL (0.0-0.5) 06/02/20 20:41 AST 32 U/L (5-31) H 06/02/20 20:41 ALT 23 U/L (0-31) 06/02/20 20:41 Alkaline Phosphatase 75 U/L (39-117) 06/02/20 20:41 Troponin I High Sens < 3.5 ng/L (<3.5-17.0) 06/02/20 20:41 B-Natriuretic Peptide 140 pg/mL (<100) H 06/02/20 20:41 Total Protein 6.2 g/dL (6.5-8.0) L 06/02/20 20:41 Albumin 3.8 g/dL (3.5-5.0) 06/02/20 20:41 Lipase 44 U/L (8-78) 06/02/20 20:41 Urine Color YELLOW 06/02/20 23:28 Urine Appearance CLEAR 06/02/20 23:28 Urine pH 7.5 (5.0-8.0) 06/02/20 23:28 Ur Specific [place] 1.015 (1.005-1.025) 06/02/20 23:28 Urine Protein NEG MG/DL (NEG-TRACE) 06/02/20 23:28 Urine Glucose (UA) NEG MG/DL (NEG) 06/02/20 23:28 Urine Ketones NEG MG/DL (NEG) 06/02/20 23:28 Urine Blood NEG (NEG) 06/02/20 23:28 Urine Nitrite NEG (NEG) 06/02/20 23:28 Ur Leukocyte Esterase NEG (NEG) 06/02/20 23:28 COVID-19 (ERIS) Negative (Negative) 06/02/20 22:12 COVID-19 Clin Com See Note 06/02/20 22:12 Discharge Plan Discharge Patient Disposition: Home Health Service Referrals: [facility] [Outside] Henny Bynum MA-A, CCC-DIRECTOR OF CONSERVATION [Speech Therapist] - 1 Week (follow up on swallowing problem for MBBS study) Physician,Unknown [Primary Care Provider] - Discharge Medications: New levetiracetam 250 mg Tablet 250 mg PO BID Qty: 60 RF: 0 Continued flecainide 50 mg tablet 50 mg PO BID Qty: 180 RF: 3 metoprolol succinate 25 mg tablet extended release 24 hr 25 mg PO DAILY Qty: 90 RF: 3 ketoconazole 2 % Shampoo 1 appl TOPICAL 3XW RF: 0 warfarin 5 mg Tablet 5 mg PO SUMOWETHSA@1800 RF: 0 warfarin 5 mg Tablet 2.5 mg PO TUFR@1800 RF: 0 cyanocobalamin (vitamin B-12) [Vitamin B-12] 1,000 mcg Tablet 1,000 mcg PO DAILY RF: 0 ascorbic acid (vitamin C) [Vitamin C] 500 mg Tablet 500 mg PO DAILY RF: 0 ferrous sulfate 325 mg (65 mg iron) Tablet 325 mg PO DAILY RF: 0 cholecalciferol (vitamin D3) [Vitamin D3] 25 mcg (1,000 unit) Tablet 25 mcg PO DAILY RF: 0 Probiotic 3 billion cell Capsule 3,000 mmu cells PO DAILY RF: 0 timolol 0.5 % Drops 1 drp OPHTHALMIC (EYE) DAILY RF: 0 simvastatin 10 mg tablet 10 mg PO BEDTIME Qty: 90 RF: 1 warfarin 5 mg tablet 5 mg PO .COMPLEX Qty: 90 RF: 0 Discharge Orders: Discharge Order (Routine); Ordered 06/05/20 Ordered By: Estevan Calvillo Diet: advance to usual diet Activity on Discharge: As tolerated Discharge Date/Time: 06/05/20 16:30 Other Ambulatory Orders: FL barium swallow modified (Routine) Timeframe: 1 Week Facility: [facility] - Location: Radiology Ordered By: Estevan Calvillo Visit Report Forms: Patient Portal Discharge page Care Plan Goals: Read below Health Concerns: Read below Plan of Treatment: You have presented to the hospital for evaluation of a syncopal episode. A CT scan of the brain was negative for any acute findings. Echo was done for your heart showing normal heart function. You were evaluated by dining car steward as your pacemaker was interrogated showing no abnormal rhythm. You were evaluated by neurologist Dr. Gimenez who was highly suspicious for possible seizure as the reason for this episode. You were started on a seizure medication called Keppra to be taken twice a day. To follow-up with Dr. Gimenez office after calling for an appointment. We advise you not to drive until you see Dr. Gimenez and get further evaluation Continue physical therapy at home You were evaluated by speech therapy for reported hx of difficulty swallowing Recommending regular solids and nectar thick liquids with pills whole in applesauce.
== END 2020-06-05 16:30 | disposition home health service (06) | DRG 101 ==
LOC: HO.ED 22:38 → HO.IMC 23:33
PROVIDERS: Admitting Provider Internal Medicine; Emergency Provider Emergency Medicine; Visit Provider Student in an Organized Health Care Education/Training Program
DX: R56.9 Unspecified convulsions (principal); I48.91 Unspecified atrial fibrillation; Z86.711 Personal history of pulmonary embolism; Z20.828 Contact with and (suspected) exposure to other viral communicable diseases; I49.5 Sick sinus syndrome; R29.6 Repeated falls; Z91.81 History of falling; R13.10 Dysphagia, unspecified; I10 Essential (primary) hypertension; I25.10 Atherosclerotic heart disease of native coronary artery without angina pectoris; Z95.0 Presence of cardiac pacemaker; Z88.0 Allergy status to penicillin; Z88.5 Allergy status to narcotic agent; Z79.01 Long term (current) use of anticoagulants; Z79.899 Other long term (current) drug therapy
CPT/HCPCS: 36415; 70450; 71045; 80048; 80076; 81003; 83690; 83880; 84484; 85025; 85027; 85610; 85730; 87635; 92610; 93005; 93306; 97162; 99285

== ENCOUNTER → 2020-06-09 15:22 | Outpatient (BNVA) | payer OTHER, SELFPAY | PROVIDERS: Visit Provider Internal Medicine | DX: I48.20 Chronic atrial fibrillation, unspecified (principal); I26.99 Other pulmonary embolism without acute cor pulmonale; Z51.81 Encounter for therapeutic drug level monitoring; Z79.01 Long term (current) use of anticoagulants | CPT/HCPCS: Q3014 ==

== ENCOUNTER 2020-06-14 14:19 | Outpatient (REF) | payer OTHER, SELFPAY ==
--- NOTE | 2020-06-14 14:22 | FL_ITS ---
EXAMINATION: XR BARIUM SWALLOW CLINICAL INFORMATION: Dysphagia. COMPARISON: None TECHNIQUE: Modified barium swallow was performed on the lateral fluoroscopy in presence of speech therapist. FINDINGS: On oral administration of various consistencies of thin, thick and indicating consistencies of barium coated food and liquids there is slight delay in the brush sander bolus from the oral cavity through the pharynx into esophagus. No laryngeal penetration or aspiration seen. No retention of barium coated food seen in the valleculae or piriform sinuses. FLUOROSCOPY TIME: 2.5 minutes DOSE AREA PRODUCT: 1.526 uGy-m2 (microgray-meter squared) FL/FL barium swallow modified IMPRESSION: Delayed oral phase. Otherwise unremarkable modified barium swallow exam.
== END 2020-06-14 14:20 | disposition home or self-care (01) ==
LOC: HO.XRAY 14:19
PROVIDERS: Visit Provider Student in an Organized Health Care Education/Training Program
DX: R13.10 Dysphagia, unspecified (principal); R13.12 Dysphagia, oropharyngeal phase; R49.0 Dysphonia
CPT/HCPCS: 74230; 92611

== ENCOUNTER → 2020-06-16 12:02 | Outpatient (BNVA) | payer OTHER, SELFPAY | PROVIDERS: PCP Internal Medicine; Visit Provider Internal Medicine | DX: Z13.89 Encounter for screening for other disorder (principal) | CPT/HCPCS: Q3014 ==

== ENCOUNTER → 2020-06-22 14:20 | Outpatient (BNVA) | payer OTHER, SELFPAY | PROVIDERS: PCP Internal Medicine; Visit Provider Internal Medicine | DX: I48.0 Paroxysmal atrial fibrillation (principal); I26.99 Other pulmonary embolism without acute cor pulmonale; Z79.01 Long term (current) use of anticoagulants; Z51.81 Encounter for therapeutic drug level monitoring | CPT/HCPCS: Q3014 ==

== ENCOUNTER → 2020-06-28 14:25 | Outpatient (BNVA) | payer OTHER, SELFPAY | PROVIDERS: PCP Internal Medicine; Visit Provider Internal Medicine | DX: I48.20 Chronic atrial fibrillation, unspecified (principal); I26.99 Other pulmonary embolism without acute cor pulmonale; Z79.01 Long term (current) use of anticoagulants; Z51.81 Encounter for therapeutic drug level monitoring | CPT/HCPCS: Q3014 ==

== ENCOUNTER 2020-06-30 16:17 | Outpatient (REF) | payer OTHER, SELFPAY ==
--- NOTE | 2020-06-30 | US_ITS ---
EXAMINATION: US SOFT TISSUE OF THE NECK CLINICAL INFORMATION: Swelling, mass, lump in right neck. COMPARISON: Ultrasound soft tissue head/neck dated 12/24/2018. TECHNIQUE: Linear transducer grayscale and color Doppler examination of the right neck, level II. FINDINGS: Palpable lump along the right neck level 2 space corresponds to pulsating carotid bulb with plaque seen within. Similar lump felt on the left side at the same level corresponding to a carotid bulb. The soft tissues are normal. No abnormal lymphadenopathy seen. US/US soft tiss head and/or neck IMPRESSION: Palpable lump along the right neck level 2 corresponds to a pulsating carotid bulb with plaque within. Similar palpable lump along the left neck level 2 corresponds to pulsating carotid bulb.
== END 2020-06-30 16:18 | disposition home or self-care (01) ==
LOC: HO.US 16:17
PROVIDERS: Visit Provider Internal Medicine
DX: R22.1 Localized swelling, mass and lump, neck (principal)
CPT/HCPCS: 76536

== ENCOUNTER → 2020-07-05 16:08 | Outpatient (BNVA) | payer OTHER, SELFPAY | PROVIDERS: PCP Internal Medicine; Visit Provider Internal Medicine | DX: I48.20 Chronic atrial fibrillation, unspecified (principal); I26.99 Other pulmonary embolism without acute cor pulmonale; Z79.01 Long term (current) use of anticoagulants; Z51.81 Encounter for therapeutic drug level monitoring | CPT/HCPCS: Q3014 ==

== ENCOUNTER 2020-07-14 10:24 | Outpatient (REF) | payer OTHER, SELFPAY ==
[2020-07-14 10:28] LABS: MANUAL DIFF FLAG NO
[2020-07-14 10:40] LABS: Eosinophils Absolute Auto 0.1 X10*3/uL (0.0-0.4); Eosinophils Percent Auto 3.6 % (0-4); Hematocrit 39.4 % (37-47); Imm Gran Abs Auto 0.01 X10*3/uL (0.00-0.03); Imm Gran Pct Auto 0.3 % (0.0-0.4); Lymphocytes Absolute Auto 1.1 X10*3/uL (1.2-4.9); Lymphocytes Percent Auto 27.5 % (20-40); Mean Platelet Volume 10.3 fL (9.4-12.3); Monocytes Absolute Auto 0.4 X10*3/uL (0.1-1.2); Monocytes Percent Auto 9.6 % (2-11); Neutrophils Absolute Auto 2.2 X10*3/uL (2.0-8.3); Platelet Count 169 X10*3/uL (160-400); Red Blood Count 4.33 X10*6/uL (4.20-5.50); Red Cell Distribution Width 14.6 % (11.0-16.0); White Blood Count 3.9 X10*3/uL (4.8-10.8)
[2020-07-14 10:50] LABS: Glucose Urine UA NEG (NEG); Leukocyte Esterase Urine NEG (NEG); Nitrite Urine NEG (NEG); Urine Blood NEG (NEG); Urine Ketones NEG (NEG); Urine Protein NEG (NEG-TRACE)
[2020-07-14 11:01] LABS: Appearance Urine CLEAR; Color Urine STRAW
[2020-07-14 11:03] LABS: RBC Urine 0-2 /HPF (0); WBC Urine 0 /HPF (0-4)
[2020-07-14 11:16] LABS: B Type Natriuretic Peptide 61 pg/mL (<100)
[2020-07-14 11:17] LABS: Alanine Aminotransferase 19 U/L (0-31); Albumin Level 3.7 g/dL (3.5-5.0); Alkaline Phosphatase 72 U/L (39-117); Aspartate Amino Transferase 21 U/L (5-31); Bilirubin Total 0.6 mg/dL (0.0-1.0); Blood Urea Nitrogen 12 mg/dL (9-16); Calcium 8.9 mg/dL (8.4-10.2); Cholesterol 147 mg/dL; Estimated Glomerular Filt Rate > 60; Glucose Random 83 mg/dL (60-115); HDL Cholesterol 63 mg/dL; LDL Cholesterol Calculated 71 mg/dl; Total Protein 6.2 g/dL (6.5-8.0); Triglycerides 69 mg/dL
[2020-07-14 11:34] LABS: Free T4 (Free Thyroxine) 1.04 ng/dL (0.71-1.85); Thyroid Stimulating Hormone 1.59 uIU/mL (0.32-4.0)
[2020-07-14 11:35] LABS: Anion Gap 12 (12-20); Carbon Dioxide 28 mmol/L (22-29); Chloride 103 mmol/L (96-108); Potassium 4.2 mmol/L (3.3-5.1); Sodium 139 mmol/L (135-145)
[2020-07-14 11:59] LABS: Vitamin B12 835 pg/mL (200-900)
== END 2020-07-14 10:25 | disposition home or self-care (01) ==
LOC: HO.LNP 10:24
PROVIDERS: Visit Provider Internal Medicine
DX: R55 Syncope and collapse (principal); I10 Essential (primary) hypertension; E78.5 Hyperlipidemia, unspecified; I48.91 Unspecified atrial fibrillation; N39.0 Urinary tract infection, site not specified
CPT/HCPCS: 80053; 80061; 81001; 82607; 82746; 83880; 84439; 84443; 85025; Q3014

== ENCOUNTER → 2020-07-27 12:42 | Outpatient (BNVA) | payer OTHER, SELFPAY | PROVIDERS: PCP Family Medicine; Visit Provider Internal Medicine | DX: I26.99 Other pulmonary embolism without acute cor pulmonale (principal); I48.20 Chronic atrial fibrillation, unspecified; Z51.81 Encounter for therapeutic drug level monitoring; Z79.01 Long term (current) use of anticoagulants | CPT/HCPCS: Q3014 ==

== ENCOUNTER → 2020-08-02 14:21 | Outpatient (BNVA) | payer OTHER, SELFPAY | PROVIDERS: PCP Family Medicine; Visit Provider Internal Medicine | DX: I48.20 Chronic atrial fibrillation, unspecified (principal); I26.99 Other pulmonary embolism without acute cor pulmonale; Z51.81 Encounter for therapeutic drug level monitoring; Z79.01 Long term (current) use of anticoagulants | CPT/HCPCS: Q3014 ==

== ENCOUNTER 2020-08-05 12:52 | Outpatient (REF) | payer OTHER, SELFPAY ==
--- NOTE | ~2020-08-05 | US_ITS ---
EXAMINATION: US EXTRACRANIAL CAROTID DUPLEX, BILATERAL CLINICAL INFORMATION: Syncope and collapse COMPARISON: None TECHNIQUE: Real-time ultrasound and Doppler techniques (integrating B-mode 2-D vascular images, Doppler spectral analysis and color-flow Doppler imaging) were utilized to interrogate the extracranial carotid arteries, the vertebral arteries and proximal subclavian arteries bilaterally. The degree of stenosis is determined by criteria similar to NASCET. FINDINGS: Right Side: 1. There is mild calcified atherosclerotic plaque seen in the bifurcation/proximal ICA region. 2. The common carotid artery PSV proximally is 81 cm/s and distally 69 cm/s. 3. The proximal internal carotid artery velocities are 53 cm/s systolic and 22 cm/s diastolic. 4. The proximal external carotid artery PSV is 78 cm/s. 5. The vertebral artery shows antegrade flow. 6. The subclavian artery waveforms are normal. Left Side: 1. There is mild heterogeneous/calcified atherosclerotic plaque seen in the bifurcation/proximal ICA region. 2. The common carotid artery PSV proximally is 68 cm/s and distally 67 cm/s. 3. The proximal internal carotid artery velocities are 49 cm/s systolic and 16 cm/s diastolic. 4. The proximal external carotid artery PSV is 92 cm/s. 5. The vertebral artery shows antegrade flow. 6. The subclavian artery waveforms are normal. US/US carotid duplex BI IMPRESSION: 1. RIGHT: Minimal, non-hemodynamically significant stenosis of the proximal right internal carotid artery corresponding to a 0-49% stenosis by velocity criteria. 2. LEFT: Minimal, non-hemodynamically significant stenosis of the proximal left internal carotid artery corresponding to a 0-49% stenosis by velocity criteria.
== END 2020-08-05 12:53 | disposition home or self-care (01) ==
LOC: HO.US 12:52
PROVIDERS: PCP Internal Medicine; Visit Provider Internal Medicine
DX: G40.909 Epilepsy, unspecified, not intractable, without status epilepticus (principal); I48.91 Unspecified atrial fibrillation; R55 Syncope and collapse
CPT/HCPCS: 93880

== ENCOUNTER → 2020-08-09 12:38 | Outpatient (BNVA) | payer OTHER, SELFPAY | PROVIDERS: PCP Family Medicine; Visit Provider Internal Medicine | DX: I48.20 Chronic atrial fibrillation, unspecified (principal); I26.99 Other pulmonary embolism without acute cor pulmonale; Z51.81 Encounter for therapeutic drug level monitoring; Z79.01 Long term (current) use of anticoagulants | CPT/HCPCS: 99211 ==

== ENCOUNTER → 2020-08-16 11:16 | Outpatient (BNVA) | payer OTHER, SELFPAY | PROVIDERS: PCP Family Medicine; Visit Provider Internal Medicine | DX: I48.0 Paroxysmal atrial fibrillation (principal); I95.9 Hypotension, unspecified; R07.89 Other chest pain; Z51.81 Encounter for therapeutic drug level monitoring; Z79.01 Long term (current) use of anticoagulants; Z79.899 Other long term (current) drug therapy; Z45.018 Encounter for adjustment and management of other part of cardiac pacemaker | CPT/HCPCS: Q3014 ==

== ENCOUNTER → 2020-08-23 14:34 | Outpatient (BNVA) | payer OTHER, SELFPAY | PROVIDERS: PCP Family Medicine; Visit Provider Internal Medicine | DX: I48.20 Chronic atrial fibrillation, unspecified (principal); I26.99 Other pulmonary embolism without acute cor pulmonale; Z51.81 Encounter for therapeutic drug level monitoring; Z79.01 Long term (current) use of anticoagulants | CPT/HCPCS: Q3014 ==

== ENCOUNTER → 2020-08-30 10:19 | Outpatient (BNVA) | payer OTHER, SELFPAY | PROVIDERS: PCP Internal Medicine; Visit Provider Internal Medicine | DX: I48.20 Chronic atrial fibrillation, unspecified (principal); I26.99 Other pulmonary embolism without acute cor pulmonale; Z51.81 Encounter for therapeutic drug level monitoring; Z79.01 Long term (current) use of anticoagulants | CPT/HCPCS: Q3014 ==

== ENCOUNTER → 2020-09-06 13:43 | Outpatient (BNVA) | payer OTHER, SELFPAY | PROVIDERS: PCP Internal Medicine; Visit Provider Internal Medicine | DX: I48.20 Chronic atrial fibrillation, unspecified (principal); I26.99 Other pulmonary embolism without acute cor pulmonale; Z79.01 Long term (current) use of anticoagulants; Z51.81 Encounter for therapeutic drug level monitoring | CPT/HCPCS: 99211 ==

== ENCOUNTER 2020-09-08 07:26 | Inpatient (IN) | payer OTHER, SELFPAY ==
[2020-09-08] VITALS (13 sets, daily range): BP systolic 102–166; BP diastolic 50–98; PULSE 60–87; RESP 10–18; TEMP 36.2–36.7; O2SAT 95–98; BMI 19.0
--- NOTE | ~2020-09-08 | CT_ITS ---
EXAMINATION: CT BRAIN AND CT CERVICAL SPINE WITHOUT CONTRAST. CLINICAL INFORMATION: Dizziness, fall. COMPARISON: None TECHNIQUE: 5 mm thin axial and reformatted 2 mm thin sagittal and coronal images of brain were obtained. Subsequently axial 3 mm thin and reformatted 2 mm thin sagittal and coronal images of cervical spine were obtained. DLP 833. FINDINGS: BRAIN: There is no acute intra-axial, extra-axial bleed, masses, collection or midline shift. There is no acute infarction in evolution. The lateral ventricles are symmetrical but enlarged. There is diffuse periventricular hypodensity in both cerebral hemispheres without mass effect. Bone windows reveal no calvarial abnormality. There is no scalp soft tissue abnormality. Bilateral pattern nasal sinuses and mastoid air cells are well-aerated. CERVICAL SPINE: On sagittal reconstructed images there is normal cervical lordosis. The vertebral heights are normal. There is grade 1 retrolisthesis C3-C4 over C5. There is loss of C4-C5, C5-C6, C6-C7 disc heights with posterior spondylosis. No lytic or sclerotic process seen. The craniovertebral and C1-C2 junction is normal. There is mild bilateral C2-C3, C3-C4, C4-C5, C5-C6 and C6/C7 facet joint arthropathy. The prevertebral and paravertebral soft tissues are normal. The thyroid lobes are symmetrical. The airway is widely patent. The lung apices are clear. CT/CT head/brain wo con IMPRESSION: No acute intracranial process seen. Mild cerebral atrophy with chronic small vessel ischemic changes. No acute fracture, dislocation or subluxation cervical spine. There are degenerative disc changes and facet joint arthropathy as described above.
--- NOTE | ~2020-09-08 | CT_ITS ---
EXAMINATION: CT ANGIOGRAM NECK WITH CONTRAST CT ANGIOGRAM BRAIN WITH CONTRAST CLINICAL INFORMATION: Rule out posterior circulation stroke. Think MRI. COMPARISON: Head CT August 29, 2020. TECHNIQUE: Test bolus sequences followed by intravenous administration 70 mL of Omnipaque 350. Helical imaging was performed in the axial plane from the thoracic inlet to the skull vertex. Delayed postcontrast imaging of the head was also performed. The data was processed at the mechatronics technologist workstation for generation of MIP sequences. Angled MIPs and volume rendered reformatted images were also generated at an offline 3D workstation. Stenoses are assessed in accordance with NASCET criteria unless otherwise indicated. This CT examination was performed using dose optimization techniques as appropriate, variously including the following: *Automated exposure control *Adjustment of mA and/or kV according to patient size (this includes techniques or standardized protocols for targeted exams where dose is matched to indication/reason for exam; i.e. extremities or head) *Use of iterative reconstruction technique DLP: 1503 mGy-cm FINDINGS: Head CT: A small focus of parenchymal hemorrhage is seen in the left frontal lobe as seen on series 13 image 24/53. No definite territorial infarction is seen. There is a small chronic lacunar infarct within the left and right thalami. Background changes of moderate chronic microangiopathy and diffuse brain parenchymal volume loss are noted. There is no enhancing lesion. The dural venous sinuses demonstrate normal opacification. The extracranial structures are within normal limits. Neck CTA: Mild atheromatous changes are seen involving the aortic arch. The great vessel origins are patent. The bilateral carotid bifurcations are patent with mild atheromatous changes noted. Both vertebral arteries are patent. Head CTA: The intradural vertebral arteries and basilar artery are patent without significant stenosis. There is disposition of both community affairs director which appear patent. The anterior circulation is patent. No aneurysm is seen. Non-vascular findings: Pacemaker seen in the left anterior chest wall. There is no consolidation within the upper lungs. The cervical soft tissues are within normal limits. Multilevel degenerative changes are seen within the spine. CT/CT angio head neck IMPRESSION: CT head: Small focus of hemorrhage in the left frontal lobe. 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 Background changes of moderate chronic microangiopathy. CTA neck: No vascular occlusion or high-grade narrowing. CTA head: No vascular occlusion or high-grade narrowing. disposition of the bilateral community affairs director. This critical result was discussed with Kaela Geronimo on 09/08/2020 11:58 AM, and it was ascertained that the content and urgency of the report was understood at the time of direct communication.
--- NOTE | ~2020-09-08 | CT_ITS ---
EXAMINATION: CT HEAD WITHOUT CONTRAST CLINICAL INFORMATION: Intracranial hemorrhage COMPARISON: CT 09/08/2020 TECHNIQUE: Contiguous axial imaging was performed from the skull base to vertex without intravenous contrast. This CT examination was performed using dose optimization techniques as appropriate, variously including the following: * Automated exposure control * Adjustment of mA and/or kV according to patient size (this includes techniques or standardized protocols for targeted exams where dose is matched to indication/reason for exam; i.e. extremities or head) Use of iterative reconstruction technique DLP: 702 mGy-cm. FINDINGS: Tiny focus of increased attenuation in the left frontal lobe white matter is again noted, similar in appearance to prior. This measures 0.3 cm on series 4 image 30. There is no evidence of new intracranial hemorrhage or territorial infarction. No abnormal mass effect or midline shift is seen. Elmore to white matter differentiation is well preserved. No extra-axial fluid collections are identified. No hydrocephalus. Proportional prominence of the ventricles and sulcal spaces is consistent with moderate volume loss. Patchy periventricular and deep white matter hypoattenuation is consistent with moderate small vessel ischemic changes. The osseous structures and soft tissues are normal. The mastoid air cells and visualized portions of the paranasal sinuses are well aerated. CT/CT head/brain wo con IMPRESSION: No change in the tiny focus of left frontal lobe intraparenchymal hemorrhage. No new findings. Moderate chronic volume loss with small vessel ischemic change.
--- NOTE | ~2020-09-08 | CT_ITS ---
EXAMINATION: CT BRAIN AND CT CERVICAL SPINE WITHOUT CONTRAST. CLINICAL INFORMATION: Dizziness, fall. COMPARISON: None TECHNIQUE: 5 mm thin axial and reformatted 2 mm thin sagittal and coronal images of brain were obtained. Subsequently axial 3 mm thin and reformatted 2 mm thin sagittal and coronal images of cervical spine were obtained. DLP 833. FINDINGS: BRAIN: There is no acute intra-axial, extra-axial bleed, masses, collection or midline shift. There is no acute infarction in evolution. The lateral ventricles are symmetrical but enlarged. There is diffuse periventricular hypodensity in both cerebral hemispheres without mass effect. Bone windows reveal no calvarial abnormality. There is no scalp soft tissue abnormality. Bilateral pattern nasal sinuses and mastoid air cells are well-aerated. CERVICAL SPINE: On sagittal reconstructed images there is normal cervical lordosis. The vertebral heights are normal. There is grade 1 retrolisthesis C3-C4 over C5. There is loss of C4-C5, C5-C6, C6-C7 disc heights with posterior spondylosis. No lytic or sclerotic process seen. The craniovertebral and C1-C2 junction is normal. There is mild bilateral C2-C3, C3-C4, C4-C5, C5-C6 and C6/C7 facet joint arthropathy. The prevertebral and paravertebral soft tissues are normal. The thyroid lobes are symmetrical. The airway is widely patent. The lung apices are clear. CT/CT cervical spine wo con IMPRESSION: No acute intracranial process seen. Mild cerebral atrophy with chronic small vessel ischemic changes. No acute fracture, dislocation or subluxation cervical spine. There are degenerative disc changes and facet joint arthropathy as described above.
[2020-09-08 07:54] LABS: Glucose Urine UA NEG (NEG); Leukocyte Esterase Urine NEG (NEG); Nitrite Urine NEG (NEG); Specific Gravity - Urine 1.015 (1.005-1.025); Urine Blood NEG (NEG); Urine Ketones NEG (NEG); Urine Protein NEG (NEG-TRACE)
[2020-09-08 07:57] LABS: Appearance Urine CLEAR; Color Urine YELLOW
--- NOTE | 2020-09-08 08:00 | ECG_ITS ---
Test Reason : DIZZY Blood Pressure : / mmHG Vent. Rate : 066 BPM Atrial Rate : 066 BPM P-R Int : 226 ms QRS Dur : 108 ms QT Int : 452 ms P-R-T Axes : 078 -41 090 degrees QTc Int : 473 ms Sinus rhythm with 1st degree A-V block Left axis deviation Anteroseptal infarct (cited on or before 14-SEP-2003) Abnormal ECG When compared with ECG of 02-JUN-2020 20:21, No significant change was found Referred By: Kaela Geronimo Electronically Signed By:Louie Lam
--- NOTE | 2020-09-08 08:05 | ED.GENADULT ---
HPI - General Adult General Chief complaint: Fall Stated complaint: FALL Time Seen by Provider: 09/08/20 07:51 Source: patient and EMS Mode of arrival: EMS Limitations: no limitations History of Present Illness HPI narrative: Patient comes emergency room complaining of dizziness. Patient states this morning she got out of bed, started walking towards the bathroom, had a sudden onset of dizziness described as the room spinning. Patient states her legs gave out. Patient is unsure if she was able to slide down to the floor or if she fell. Patient does not know if she hit her head. Patient states that the room has constantly been spinning since this started in the morning. Patient denies headache, no chest pain, no shortness of breath. Related Data Home Medications Medication Instructions Recorded Confirmed ascorbic acid (vitamin C) [Vitamin 500 mg PO DAILY 06/02/20 09/08/20 C] cholecalciferol (vitamin D3) 25 mcg PO DAILY 06/02/20 09/08/20 [Vitamin D3] cyanocobalamin (vitamin B-12) 1,000 mcg PO DAILY 06/02/20 09/08/20 [Vitamin B-12] ferrous sulfate 325 mg PO DAILY 06/02/20 09/08/20 timolol 1 drp OPHTHALMIC (EYE) DAILY 06/03/20 09/08/20 metoprolol succinate 25 mg 12.5 mg PO DAILY tab 07/08/20 09/08/20 tablet,extended release 24 hr warfarin 2.5 mg PO TUFR@1800 09/08/20 09/08/20 warfarin 5 mg PO SUMOWETHSA@1800 09/08/20 09/08/20 Previous Rx's Medication Instructions Recorded flecainide 50 mg tablet 50 mg PO BID #180 tab 05/16/20 levetiracetam 250 mg PO BID #60 tab 06/05/20 simvastatin 10 mg tablet 10 mg PO BEDTIME #90 tab 07/21/20 Allergies Allergy/AdvReac Type Severity Reaction Status Date / Time codeine [Codeine] Allergy Unknown VOMITING Verified 08/30/20 10:07 doxycycline [Doxycycline] Allergy Unknown DIFF Verified 08/30/20 10:07 BREATHING Penicillins Allergy Unknown DIFF Verified 08/30/20 10:07 BREATHING pepper (genus Capsicum) Allergy Unknown Unknown Verified 08/30/20 10:07 tetracycline [Tetracycline] Allergy Unknown DIFF Verified 08/30/20 10:07 BREATHING oxycodone [From PERCOCET] AdvReac Intermediate VOMITING Verified 08/30/20 10:07 epinephrine Allergy Unknown Unknown Uncoded 08/16/20 14:28 From Novocain Allergy Unknown LOWERED BP Uncoded 08/16/20 14:28 - OK IF IT DOES NOT HAVE EPINEPHRINE IN IT toro for MIBI Allergy Unknown headache Uncoded 08/16/20 14:28 most antibiotics Allergy Unknown Unknown Uncoded 08/16/20 14:28 Pt states she CAN take Emycin Allergy Unknown Unknown Uncoded 08/16/20 14:28 Review of Systems Review of Systems: Constitutional : No Weight loss, No Fever, No Chills, No Night Sweats, No Fatigue, No Malaise ENT/Mouth : No Hearing loss, No Ear Pain, No Nasal Congestion, No Sinus Pain, No Hoarseness, No sore throat, No Rhinorrhea, No Swallowing Difficulty Eyes: No Eye Pain, No Swelling, No Redness, No Foreign Body, No Discharge, No Vision Changes Cardiovascular : No Chest Pain, No SOB, No Dyspnea on Exertion, No Orthopnea, No Edema, No Palpitations Respiratory : No Cough, No Sputum, No Wheezing, No Smoke Exposure, No Dyspnea Gastrointestinal : No Nausea, No Vomiting, No Diarrhea, No Constipation, No abdominal Pain, No Hematochezia, No Melena Genitourinary : no irregular bleeding, No Dysuria, No Urinary Frequency, No Hematuria, No Urinary Incontinence, No Urgency, No Flank Pain, No Urinary Flow Changes, No Hesitancy Musculoskeletal : No joint pain, No Myalgias, No Joint Swelling Skin : No Skin Lesions, No rash Neuro : Denies headache, unsure if she had a head injury. Complaining of severe dizziness, room spinning Psych : No Anxiety/Panic, No Depression, No SI/HI/AH/VH, No Social Issues, Heme/Lymph: No Bruising, No Bleeding,No Lymphadenopathy Endocrine : No Polyuria, No Polydipsia, No Temperature Intolerance [facility] Past Medical History Medical History Arterial hypotension Atrial fibrillation Coronary artery disease Glaucoma History of pulmonary embolism Hypercholesterolemia Hypertension Irritable bowel syndrome Nodule of neck Pacemaker PAF (paroxysmal atrial fibrillation) Peripheral neuropathy Post concussive syndrome Protein S deficiency Sick sinus syndrome Stress incontinence Surgical History H/O breast surgery History of appendectomy History of D&C History of eye surgery History of hemorrhoidectomy History of hip replacement History of pacemaker History of tonsillectomy and adenoidectomy History of total abdominal hysterectomy and bilateral salpingo-oophorectomy Presence of IVC filter Family History Family History Father Heart disease Stroke Mother Heart disease Sister Breast cancer Brother Heart disease Sister Breast cancer Social History Social History Household Members: Spouse Housing: House Alcohol intake: never Smoking Status: Never smoker Smoked in Last 30 Days: No Use of substances other than those prescribed or required for medical reasons: No Advance Directives: No Advance Directives Information Provided: No service: No Current occupational status: retired Physical Exam Vital Signs: Vital Signs: Last Vital Signs Temp 98 F 09/08/20 13:30 Pulse 68 09/08/20 15:09 Resp 13 09/08/20 15:09 BP 107/53 L 09/08/20 15:09 Pulse Ox 95 09/08/20 15:09 Body Mass Index 19.0 Appearance: Alert. Oriented X3. Uncomfortable, was to keep her eyes closed to avoid the spinning sensations Eyes: Pupils equal, round and reactive to light. No nystagmus ENT: Pharynx normal. Neck: Normal inspection. Neck supple. No lymph nodes noted. No crepitus CVS: Normal heart rate and rhythm. Pulses normal. Normal S1 and S2, palpable pacemaker over the left side of the chest Respiratory: No respiratory distress. Breath sounds normal. No Wheezing. No rales Abdomen: Soft and nontender. No rigidity. No distention. good BS x4 Skin: Skin warm and dry. Normal skin color. Normal skin turgor. Extremities: No lower extremity edema. Neuro: Cranial nerves 2-12 grossly intact, strength 5/5 in all extremities, unwilling to sit up due to fear of worsening symptoms/dizziness NIH Stroke Scale Level of Consciousness: Alert Level of Consciousness Questions: Answers both questions correctly Level of Consciousness Commands: Performs both tasks correctly Best Gaze: Normal Visual: No visual loss Facial Palsy: Normal Motor Arm (Right): No drift Motor Arm (Left): No drift Motor Leg (Right): No drift Motor Leg (Left): No drift Limb Ataxia: Absent Sensory: Normal Best Language: No aphasia Dysarthia: Normal Extinction and Inattention: No abnormality Score: 0 Course Course Course Narrative: Patient states that she did improve with the medication, but she is still dizzy, unable to sit up or stand. Ideally patient should be getting an MRI but she is not a candidate because she has a pacemaker. CTA of head and neck is now in progress I received a phone call from [facility]. Patient's CTA of head and neck shows that she has a small left frontal lobe hemorrhage. Vitamin K and FFP emergent release has been ordered. I discussed the patient immediately with Dr. Gimenez. At this time, Dr. Gimenez recommends that patient may stay here in the hospital, will need a CT a tomorrow morning. If there are any neurological changes, CT of the head needs to be done before Patient admitted by Dr. Calvillo. 15:15, overall patient is feeling better, still feeling slightly dizzy, neurologically intact. Medical Decision Making Lab Data Result diagrams: 09/08/20 09:03 09/08/20 09:03 Labs: Lab Results 09/08/20 09/08/20 09/08/20 Range/Units 07:45 09:03 09:03 WBC 3.7 L (4.8-10.8) X10*3/uL RBC 4.23 (4.20-5.50) X10*6/uL Hgb 12.5 (12.0-16.0) g/dl Hct 38.4 (37-47) % MCV 90.8 (80-98) fL MCH 29.6 (27.0-33.0) pg MCHC 32.6 (31.0-35.0) g/dl RDW 14.8 (11.0-16.0) % Plt Count 148 L (160-400) X10*3/uL MPV 9.9 (9.4-12.3) fL Immature Gran % (Auto) 0.3 (0.0-0.4) % Neut % (Auto) 65.1 (45-73) % Lymph % (Auto) 23.0 (20-40) % [place] % (Auto) 9.4 (2-11) % Eos % (Auto) 1.1 (0-4) % Baso % (Auto) 1.1 (0-2) % Lymph # (Auto) 0.9 L (1.2-4.9) X10*3/uL [place] # (Auto) 0.4 (0.1-1.2) X10*3/uL Eos # (Auto) 0.0 (0.0-0.4) X10*3/uL Baso # (Auto) 0.0 (0.0-0.2) X10*3/uL Abs Immat Gran (auto) 0.01 (0.00-0.03) X10*3/uL Absolute Neuts (auto) 2.4 (2.0-8.3) X10*3/uL Absolute Nucleated RBC 0.000 (0.0-0.012) X10*3/uL Nucleated RBC % (auto) 0.0 (0.0-0.2) /100WBC PT (10.8-13.0) SEC INR (0.9-1.1) Sodium 138 (135-145) mmol/L Potassium 3.9 (3.3-5.1) mmol/L Chloride 102 (96-108) mmol/L Carbon Dioxide 29 (22-29) mmol/L Anion Gap 11 L (12-20) BUN 13 (9-16) mg/dL Creatinine 0.74 (0.5-1.4) mg/dL Estim Creat Clear Calc 39.3 Estimated GFR > 60 Random Glucose 90 (60-115) mg/dL Calcium 8.8 (8.4-10.2) mg/dL Troponin I High Sens (<3.5-17.0) ng/L B-Natriuretic Peptide (<100) pg/mL Urine Color YELLOW Urine Appearance CLEAR Urine pH 8.0 (5.0-8.0) Ur Specific [place] 1.015 (1.005-1.025) Urine Protein NEG (NEG-TRACE) MG/DL Urine Glucose (UA) NEG (NEG) MG/DL Urine Ketones NEG (NEG) MG/DL Urine Blood NEG (NEG) Urine Nitrite NEG (NEG) Ur Leukocyte Esterase NEG (NEG) 09/08/20 09/08/20 Range/Units 09:03 09:03 WBC (4.8-10.8) X10*3/uL RBC (4.20-5.50) X10*6/uL Hgb (12.0-16.0) g/dl Hct (37-47) % MCV (80-98) fL MCH (27.0-33.0) pg MCHC (31.0-35.0) g/dl RDW (11.0-16.0) % Plt Count (160-400) X10*3/uL MPV (9.4-12.3) fL Immature Gran % (Auto) (0.0-0.4) % Neut % (Auto) (45-73) % Lymph % (Auto) (20-40) % [place] % (Auto) (2-11) % Eos % (Auto) (0-4) % Baso % (Auto) (0-2) % Lymph # (Auto) (1.2-4.9) X10*3/uL [place] # (Auto) (0.1-1.2) X10*3/uL Eos # (Auto) (0.0-0.4) X10*3/uL Baso # (Auto) (0.0-0.2) X10*3/uL Abs Immat Gran (auto) (0.00-0.03) X10*3/uL Absolute Neuts (auto) (2.0-8.3) X10*3/uL Absolute Nucleated RBC (0.0-0.012) X10*3/uL Nucleated RBC % (auto) (0.0-0.2) /100WBC PT 41.8 H D (10.8-13.0) SEC INR 3.5 H (0.9-1.1) Sodium (135-145) mmol/L Potassium (3.3-5.1) mmol/L Chloride (96-108) mmol/L Carbon Dioxide (22-29) mmol/L Anion Gap (12-20) BUN (9-16) mg/dL Creatinine (0.5-1.4) mg/dL Estim Creat Clear Calc Estimated GFR Random Glucose (60-115) mg/dL Calcium (8.4-10.2) mg/dL Troponin I High Sens < 3.5 (<3.5-17.0) ng/L B-Natriuretic Peptide 107 H (<100) pg/mL Urine Color Urine Appearance Urine pH (5.0-8.0) Ur Specific [place] (1.005-1.025) Urine Protein (NEG-TRACE) MG/DL Urine Glucose (UA) (NEG) MG/DL Urine Ketones (NEG) MG/DL Urine Blood (NEG) Urine Nitrite (NEG) Ur Leukocyte Esterase (NEG) Imaging Data Brain and cervical spine CT: Radiologist's impression: FINDINGS: BRAIN: There is no acute intra-axial, extra-axial bleed, masses, collection or midline shift. There is no acute infarction in evolution. The lateral ventricles are symmetrical but enlarged. There is diffuse periventricular hypodensity in both cerebral hemispheres without mass effect. Bone windows reveal no calvarial abnormality. There is no scalp soft tissue abnormality. Bilateral pattern nasal sinuses and mastoid air cells are well-aerated. CERVICAL SPINE: On sagittal reconstructed images there is normal cervical lordosis. The vertebral heights are normal. There is grade 1 retrolisthesis C3-C4 over C5. There is loss of C4-C5, C5-C6, C6-C7 disc heights with posterior spondylosis. No lytic or sclerotic process seen. The craniovertebral and C1-C2 junction is normal. There is mild bilateral C2-C3, C3-C4, C4-C5, C5-C6 and C6/C7 facet joint arthropathy. The prevertebral and paravertebral soft tissues are normal. The thyroid lobes are symmetrical. The airway is widely patent. The lung apices are clear. CT/CT cervical spine wo con IMPRESSION: No acute intracranial process seen. Mild cerebral atrophy with chronic small vessel ischemic changes. No acute fracture, dislocation or subluxation cervical spine. There are degenerative disc changes and facet joint arthropathy as described above. CTA of head and neck: Radiologist's impression: Head CT: A small focus of parenchymal hemorrhage is seen in the left frontal lobe as seen on series 13 image . No definite territorial infarction is seen. There is a small chronic lacunar infarct within the left and right thalami. Background changes of moderate chronic microangiopathy and diffuse brain parenchymal volume loss are noted. There is no enhancing lesion. The dural venous sinuses demonstrate normal opacification. The extracranial structures are within normal limits. Neck CTA: Mild atheromatous changes are seen involving the aortic arch. The great vessel origins are patent. The bilateral carotid bifurcations are patent with mild atheromatous changes noted. Both vertebral arteries are patent. Head CTA: The intradural vertebral arteries and basilar artery are patent without significant stenosis. There is disposition of both retort condenser attendant which appear patent. The anterior circulation is patent. No aneurysm is seen. Non-vascular findings: Pacemaker seen in the left anterior chest wall. There is no consolidation within the upper lungs. The cervical soft tissues are within normal limits. Multilevel degenerative changes are seen within the spine. CT/CT angio head neck IMPRESSION: CT head: Small focus of hemorrhage in the left frontal lobe. 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 Background changes of moderate chronic microangiopathy. CTA neck: No vascular occlusion or high-grade narrowing. CTA head: No vascular occlusion or high-grade narrowing. disposition of the bilateral retort condenser attendant. ECG Data Attestation: I personally reviewed and interpreted this ECG as follows: (Center rhythm, heart rate 66, first-degree AV block, no ST segment depression or elevation, no T-wave inversion. QTC 473) Discharge Plan Discharge Clinical Impression: Bleeding in brain Qualifiers: Cerebral hemorrhage location: other cerebral location Laterality: left Patient Disposition: Admitted As Inpatient
[2020-09-08] MEDS: Meclizine HCl 25 MG TABLET 50 MG PO (08:22)
[2020-09-08] MEDS: diazePAM 2 MG TABLET PO (08:23)
[2020-09-08] MEDS: Metoclopramide HCl 10 MG/2 ML VIAL IVPUSH (08:23)
[2020-09-08 09:11] LABS: MANUAL DIFF FLAG NO
[2020-09-08 09:18] LABS: INTERNATIONAL NORM RATIO 3.5 (0.9-1.1); Prothrombin Time 41.8 SEC (10.8-13.0)
[2020-09-08 09:26] LABS: Basophils Percent Auto 1.1 % (0-2); Eosinophils Percent Auto 1.1 % (0-4); Hematocrit 38.4 % (37-47); Hemoglobin 12.5 g/dl (12.0-16.0); Imm Gran Abs Auto 0.01 X10*3/uL (0.00-0.03); Imm Gran Pct Auto 0.3 % (0.0-0.4); Lymphocytes Absolute Auto 0.9 X10*3/uL (1.2-4.9); Mean Corpuscular HGB Conc 32.6 g/dl (31.0-35.0); Mean Corpuscular Hemoglobin 29.6 pg (27.0-33.0); Mean Corpuscular Volume 90.8 fL (80-98); Mean Platelet Volume 9.9 fL (9.4-12.3); Monocytes Absolute Auto 0.4 X10*3/uL (0.1-1.2); Monocytes Percent Auto 9.4 % (2-11); Neutrophils Absolute Auto 2.4 X10*3/uL (2.0-8.3); Neutrophils Percent Auto 65.1 % (45-73); Platelet Count 148 X10*3/uL (160-400); Red Blood Count 4.23 X10*6/uL (4.20-5.50); Red Cell Distribution Width 14.8 % (11.0-16.0); White Blood Count 3.7 X10*3/uL (4.8-10.8)
[2020-09-08 09:45] LABS: Anion Gap 11 (12-20); Blood Urea Nitrogen 13 mg/dL (9-16); Calcium 8.8 mg/dL (8.4-10.2); Carbon Dioxide 29 mmol/L (22-29); Chloride 102 mmol/L (96-108); Creatinine Clr Calc Pharmacy 39.3; Estimated Glomerular Filt Rate > 60; Glucose Random 90 mg/dL (60-115); Potassium 3.9 mmol/L (3.3-5.1); Sodium 138 mmol/L (135-145)
[2020-09-08 09:48] LABS: B Type Natriuretic Peptide 107 pg/mL (<100); Troponin-I High Sensitivity < 3.5 ng/L (<3.5-17.0)
[2020-09-08] MEDS: iohexoL 350 MG/ML 75 ML INFUS..BTL IV (11:25)
[2020-09-08] MEDS: Phytonadione (Vit K1) Oral 10 MG/ML AMPUL PO (12:33)
--- NOTE | 2020-09-08 17:09 | PM.IMHP ---
History of Present Illness Date of Service: 09/08/20 Chief Complaint: Vertigo, weakness An 85 years old male with PMH of PAF, seizure disorder, CAD, protein S deficiency, HLD among others who presented to the hospital with vertigo and dizziness. The patient woke up this morning and reported feeling his room is spinning since she set at the edge of her bed. She try to avoid the bathroom and she fell but she was able to lower herself down to the floor as she felt very dizzy. She is not sure if she loss conscious or no. Denies any headache, chest pain, shortness of breath. In the emergency a CT, CTA scan of the head was done showing intracranial bleed. Case discussed with neurology by ED and myself who is recommending admission to telemetry floor not ICU. Admitted for further evaluation and treatment Review of Systems Review of Systems: No fever, chills but reports general weakness and feeling of dizziness No chest pain, palpitation No shortness of breath or coughing No abdominal pain, nausea or vomiting No urinary symptoms No any rash or wounds PMFSH Medical History Arterial hypotension Atrial fibrillation Coronary artery disease Glaucoma History of pulmonary embolism Hypercholesterolemia Hypertension Irritable bowel syndrome Nodule of neck Pacemaker PAF (paroxysmal atrial fibrillation) Peripheral neuropathy Post concussive syndrome Protein S deficiency Sick sinus syndrome Stress incontinence Family History Father Heart disease Stroke Mother Heart disease Sister Breast cancer Brother Heart disease Sister Breast cancer Surgical History H/O breast surgery History of appendectomy History of D&C History of eye surgery History of hemorrhoidectomy History of hip replacement History of pacemaker History of tonsillectomy and adenoidectomy History of total abdominal hysterectomy and bilateral salpingo-oophorectomy Presence of IVC filter Social History Household Members: Spouse Housing: House Alcohol intake: never Smoking Status: Never smoker Smoked in Last 30 Days: No Use of substances other than those prescribed or required for medical reasons: No Advance Directives: No Advance Directives Information Provided: No service: No Current occupational status: retired Meds Allergies Allergy/AdvReac Type Severity Reaction Status Date / Time codeine [Codeine] Allergy Unknown VOMITING Verified 08/30/20 10:07 doxycycline [Doxycycline] Allergy Unknown DIFF Verified 08/30/20 10:07 BREATHING Penicillins Allergy Unknown DIFF Verified 08/30/20 10:07 BREATHING pepper (genus Capsicum) Allergy Unknown Unknown Verified 08/30/20 10:07 tetracycline [Tetracycline] Allergy Unknown DIFF Verified 08/30/20 10:07 BREATHING oxycodone [From PERCOCET] AdvReac Intermediate VOMITING Verified 08/30/20 10:07 epinephrine Allergy Unknown Unknown Uncoded 08/16/20 14:28 From Novocain Allergy Unknown LOWERED BP Uncoded 08/16/20 14:28 - OK IF IT DOES NOT HAVE EPINEPHRINE IN IT toro for MIBI Allergy Unknown headache Uncoded 08/16/20 14:28 most antibiotics Allergy Unknown Unknown Uncoded 08/16/20 14:28 Pt states she CAN take Emycin Allergy Unknown Unknown Uncoded 08/16/20 14:28 Active Medications: Current Medications Generic Name Dose Route Start Last Admin Trade Name Freq PRN Reason Stop Dose Admin Flecainide Acetate 50 mg 09/08/20 21:00 Flecainide Acetate 50 Mg Tablet PO BID [facility] Levetiracetam 250 mg 09/08/20 16:09 Levetiracetam 250 Mg Tablet PO BID [facility] Metoprolol Succinate 25 mg 09/09/20 09:00 Metoprolol Succinate Er 25 Mg Tab.Er.24h PO DAILY [facility] Protocol Pharmacy Consult 1 each 09/08/20 15:56 Consult Rx Perform Med Rec MISCELLANE ONCE PRN Consult order Home Medications Medication Instructions Recorded Confirmed Last Taken Type ascorbic acid (vitamin C) [Vitamin 500 mg PO DAILY 06/02/20 09/08/20 09/07/20 History C] cholecalciferol (vitamin D3) 25 mcg PO DAILY 06/02/20 09/08/20 09/07/20 History [Vitamin D3] cyanocobalamin (vitamin B-12) 1,000 mcg PO DAILY 06/02/20 09/08/20 09/07/20 History [Vitamin B-12] ferrous sulfate 325 mg PO DAILY 06/02/20 09/08/20 09/07/20 History timolol 1 drp OPHTHALMIC (EYE) DAILY 06/03/20 09/08/20 09/07/20 History metoprolol succinate 25 mg 12.5 mg PO DAILY tab 07/08/20 09/08/20 09/07/20 History tablet,extended release 24 hr warfarin 2.5 mg PO TUFR@1800 09/08/20 09/08/20 09/07/20 History warfarin 5 mg PO SUMOWETHSA@1800 09/08/20 09/08/20 09/07/20 History Physical Exam Vital Signs and Narrative: Vital Signs: Last Vital Signs Temp 98 F 09/08/20 13:30 Pulse 68 09/08/20 15:09 Resp 13 09/08/20 15:09 BP 107/53 L 09/08/20 15:09 Pulse Ox 95 09/08/20 15:09 Body Mass Index 19.0 Const: Other: Constitutional : Alert, oriented, not in distress Neck : Normal inspection, Supple Cardiovascular : RRR, S1 S2, no lower extremity edema Respiratory : Good bilateral air entry, no crackles, wheezes or rhonchi Gastrointestinal: soft, lax, Normal bowel sounds, Non tender Skin : Warm/Dry, No rash Neurological : Alert & oriented x3, No focal deficit Results Labs CBC and Chem 7: 09/08/20 09:03 09/08/20 09:03 Labs: Laboratory Results - last 24 hr 09/08/20 09/08/20 09/08/20 07:45 09:03 09:03 MCV 90.8 MCH 29.6 MCHC 32.6 RDW 14.8 Plt Count 148 L MPV 9.9 Immature Gran % (Auto) 0.3 Neut % (Auto) 65.1 Lymph % (Auto) 23.0 [place] % (Auto) 9.4 Eos % (Auto) 1.1 Baso % (Auto) 1.1 Lymph # (Auto) 0.9 L [place] # (Auto) 0.4 Eos # (Auto) 0.0 Baso # (Auto) 0.0 Abs Immat Gran (auto) 0.01 Absolute Neuts (auto) 2.4 Absolute Nucleated RBC 0.000 Nucleated RBC % (auto) 0.0 PT INR Anion Gap 11 L Estim Creat Clear Calc 39.3 Estimated GFR > 60 Random Glucose 90 Calcium 8.8 Troponin I High Sens B-Natriuretic Peptide Urine Color YELLOW Urine Appearance CLEAR Urine pH 8.0 Ur Specific [place] 1.015 Urine Protein NEG Urine Glucose (UA) NEG Urine Ketones NEG Urine Blood NEG Urine Nitrite NEG Ur Leukocyte Esterase NEG 09/08/20 09/08/20 09:03 09:03 MCV MCH MCHC RDW Plt Count MPV Immature Gran % (Auto) Neut % (Auto) Lymph % (Auto) [place] % (Auto) Eos % (Auto) Baso % (Auto) Lymph # (Auto) [place] # (Auto) Eos # (Auto) Baso # (Auto) Abs Immat Gran (auto) Absolute Neuts (auto) Absolute Nucleated RBC Nucleated RBC % (auto) PT 41.8 H D INR 3.5 H Anion Gap Estim Creat Clear Calc Estimated GFR Random Glucose Calcium Troponin I High Sens < 3.5 B-Natriuretic Peptide 107 H Urine Color Urine Appearance Urine pH Ur Specific [place] Urine Protein Urine Glucose (UA) Urine Ketones Urine Blood Urine Nitrite Ur Leukocyte Esterase Imaging Radiologist's Impressions: Impressions Cervical Spine CT 09/08/20 07:59 IMPRESSION: No acute intracranial process seen. Mild cerebral atrophy with chronic small vessel ischemic changes. No acute fracture, dislocation or subluxation cervical spine. There are degenerative disc changes and facet joint arthropathy as described above. Head CT 09/08/20 08:02 IMPRESSION: No acute intracranial process seen. Mild cerebral atrophy with chronic small vessel ischemic changes. No acute fracture, dislocation or subluxation cervical spine. There are degenerative disc changes and facet joint arthropathy as described above. Head/Neck CTA 09/08/20 10:49 IMPRESSION: CT head: Small focus of hemorrhage in the left frontal lobe. 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 Background changes of moderate chronic microangiopathy. CTA neck: No vascular occlusion or high-grade narrowing. CTA head: No vascular occlusion or high-grade narrowing. disposition of the bilateral fiber drier operator. This critical result was discussed with Kaela Geronimo on 09/08/2020 11:58 AM, and it was ascertained that the content and urgency of the report was understood at the time of direct communication. Assessment and Plan (1) Bleeding in brain: Qualifiers: Cerebral hemorrhage location: other cerebral location Laterality: left Status: Acute (2) PAF (paroxysmal atrial fibrillation): Status: Acute An 85 years old male with PMH of PAF, seizure disorder, CAD, protein S deficiency, HLD among others who presented to the hospital with vertigo and dizziness. Intracranial bleed Vertigo Small focus of hemorrhage in left frontal per CTA Discussed with Dr. Gimenez from Neurology, keep patient on telemetry Hold anticoagulation for now head elevation 30 degrees IVF To repeat CT scan the morning or any changes in mental status Get Neurology evaluation Supratherapeutic INR INR of 3.5 Received FFP and vitamin K in the Emergency Daily INR AFib Protein S deficiency Hold Coumadin continue metoprolol and flecainide sick sinus syndrome pacemaker in place CAD continue metoprolol and statin DVT prophylaxis SCDs
[2020-09-08] MEDS: levETIRAcetam 250 MG TABLET PO ×2 (18:12→21:01)
--- NOTE | 2020-09-08 19:27 | PC.NURSE ---
Report received. PT is resting in bed. CAOx3, no apparent distress. PT is being admitted.
[2020-09-08 20:19] LABS: Influenza A PCR NEGATIVE (Negative); Influenza B PCR NEGATIVE (Negative); Resp Syncy Virus RNA Qual PCR NEGATIVE (Negative); SARS COV2 PCR INHOUSE NEGATIVE (Negative)
[2020-09-08] MEDS: 0.9 % Sodium Chloride 1,000 ML 80 ML IVCONT (21:01)
[2020-09-08] MEDS: Flecainide Acetate 50 MG TABLET PO (21:01)
--- NOTE | 2020-09-08 22:10 | PC.NURSE ---
Report given to M/S RN. Preparing pt for transfer to floor.
[2020-09-09] VITALS (8 sets, daily range): BP systolic 91–149; BP diastolic 46–76; PULSE 60–80; RESP 13–18; TEMP 36.1–37.6; O2SAT 95–97; BMI 19.0
[2020-09-09 06:17] LABS: MANUAL DIFF FLAG NO
[2020-09-09 06:24] LABS: Basophils Percent Auto 0.7 % (0-2); Eosinophils Absolute Auto 0.1 X10*3/uL (0.0-0.4); Eosinophils Percent Auto 1.1 % (0-4); Hematocrit 37.2 % (37-47); Hemoglobin 12.3 g/dl (12.0-16.0); Imm Gran Abs Auto 0.01 X10*3/uL (0.00-0.03); Imm Gran Pct Auto 0.2 % (0.0-0.4); Lymphocytes Absolute Auto 0.9 X10*3/uL (1.2-4.9); Lymphocytes Percent Auto 19.6 % (20-40); Mean Corpuscular HGB Conc 33.1 g/dl (31.0-35.0); Mean Corpuscular Hemoglobin 29.9 pg (27.0-33.0); Mean Corpuscular Volume 90.3 fL (80-98); Mean Platelet Volume 10.2 fL (9.4-12.3); Monocytes Absolute Auto 0.6 X10*3/uL (0.1-1.2); Monocytes Percent Auto 14.1 % (2-11); Neutrophils Absolute Auto 2.9 X10*3/uL (2.0-8.3); Neutrophils Percent Auto 64.3 % (45-73); Platelet Count 146 X10*3/uL (160-400); Red Blood Count 4.12 X10*6/uL (4.20-5.50); White Blood Count 4.5 X10*3/uL (4.8-10.8)
[2020-09-09 07:02] LABS: Anion Gap 11 (12-20); Blood Urea Nitrogen 12 mg/dL (9-16); Calcium 8.5 mg/dL (8.4-10.2); Carbon Dioxide 27 mmol/L (22-29); Chloride 109 mmol/L (96-108); Creatinine Clr Calc Pharmacy 42.7; Estimated Glomerular Filt Rate > 60; Glucose Random 81 mg/dL (60-115); Potassium 3.4 mmol/L (3.3-5.1); Sodium 144 mmol/L (135-145)
[2020-09-09] MEDS: 0.9 % Sodium Chloride 1,000 ML 80 ML IVCONT ×2 (09:39→20:36)
[2020-09-09] MEDS: Ascorbic Acid 500 MG TABLET PO (10:10)
[2020-09-09] MEDS: Metoprolol Succinate ER 25 MG TAB.ER.24H 12.5 MG PO (10:11)
[2020-09-09] MEDS: Flecainide Acetate 50 MG TABLET PO ×2 (10:15→20:37)
[2020-09-09] MEDS: Cyanocobalamin (Vitamin B-12) 1,000 MCG TABLET 1000 MCG PO (10:15)
[2020-09-09] MEDS: Cholecalciferol (Vitamin D3) 25 MCG TABLET PO (10:16)
[2020-09-09] MEDS: levETIRAcetam 250 MG TABLET PO ×2 (10:17→20:37)
[2020-09-09] MEDS: timoloL maleate 0.5 % Oph Sol 5 ML DRBTL 1 DROP EYE-BOTH (10:19)
--- NOTE | 2020-09-09 11:37 | P.CNNE_ITS ---
History of Present Illness Data of Consult Service Date: 09/09/20 Primary Care Provider: Unknown Physician 85 years old woman with underlying history of atrial fibrillation on Coumadin and also anxiety disorder she came to hospital yesterday with dizziness and had a CT scan of brain that revealed a small and was admitted. She told me that recently she was having some trouble with finding the right chamfer when tried different ones and washed her hair multiple times. At 1 point she got quite dizzy with spinning sensation especially if she was looking to the right side. There was no associated numbness paralysis or speech language difficulty. She felt a heavy feeling in her head but denied cold or flu-like illness. Today she was in bed anxious and nervous but not having dizziness unless she would look to the right. Review of Systems Review of Systems: No recent cold or flu-like illness or trauma. She lost her balance at home slumped to the ground but stated that she did not hit her head. She did not pass out. [facility] Past Medical History Medical History Arterial hypotension Atrial fibrillation Coronary artery disease Glaucoma History of pulmonary embolism Hypercholesterolemia Hypertension Irritable bowel syndrome Nodule of neck Pacemaker PAF (paroxysmal atrial fibrillation) Peripheral neuropathy Post concussive syndrome Protein S deficiency Sick sinus syndrome Stress incontinence Family History Family History Father Heart disease Stroke Mother Heart disease Sister Breast cancer Brother Heart disease Sister Breast cancer Surgical History Surgical History H/O breast surgery History of appendectomy History of D&C History of eye surgery History of hemorrhoidectomy History of hip replacement History of pacemaker History of tonsillectomy and adenoidectomy History of total abdominal hysterectomy and bilateral salpingo-oophorectomy Presence of IVC filter Social History Social History Household Members: Spouse Housing: House Alcohol intake: never Smoking Status: Never smoker Smoked in Last 30 Days: No Use of substances other than those prescribed or required for medical reasons: No Currently Displaying Signs/Symptoms of Drug Intoxication Withdrawal: No Have you been hit, kicked, punched, or otherwise hurt by someone within the past year? If so, by whom?: No Do you feel safe in your current relationship?: No Is there a partner from a previous relationship who is making you feel unsafe now?: No Are you made to feel afraid or neglected: No Advance Directives: No Advance Directives Information Provided: No Do you have thoughts of harming others: None Do you have a plan to hurt others: No Plan Recently lost weight without trying: Yes service: No Current occupational status: retired Meds Allergies Allergy/AdvReac Type Severity Reaction Status Date / Time codeine [Codeine] Allergy Unknown VOMITING Verified 08/30/20 10:07 doxycycline [Doxycycline] Allergy Unknown DIFF Verified 08/30/20 10:07 BREATHING Penicillins Allergy Unknown DIFF Verified 08/30/20 10:07 BREATHING pepper (genus Capsicum) Allergy Unknown Unknown Verified 08/30/20 10:07 tetracycline [Tetracycline] Allergy Unknown DIFF Verified 08/30/20 10:07 BREATHING oxycodone [From PERCOCET] AdvReac Intermediate VOMITING Verified 08/30/20 10:07 epinephrine Allergy Unknown Unknown Uncoded 08/16/20 14:28 From Novocain Allergy Unknown LOWERED BP Uncoded 08/16/20 14:28 - OK IF IT DOES NOT HAVE EPINEPHRINE IN IT toro for MIBI Allergy Unknown headache Uncoded 08/16/20 14:28 most antibiotics Allergy Unknown Unknown Uncoded 08/16/20 14:28 Pt states she CAN take Emycin Allergy Unknown Unknown Uncoded 08/16/20 14:28 Active Medications: Current Medications Generic Name Dose Route Start Last Admin Trade Name Freq PRN Reason Stop Dose Admin Acetaminophen 650 mg 09/08/20 18:50 Acetaminophen 325 Mg Tablet PO Q6H PRN Pain, Mild (Pain Scale 1-3) Ascorbic Acid 500 mg 09/09/20 09:00 09/09/20 10:10 Ascorbic Acid 500 Mg Tablet PO 500 mg DAILY KASSIDY Administration Cyanocobalamin 1,000 mcg 09/09/20 09:00 09/09/20 10:15 Cyanocobalamin (Vitamin B-12) 1,000 Mcg Tablet PO 1,000 mcg DAILY KASSIDY Administration Flecainide Acetate 50 mg 09/08/20 21:00 09/09/20 10:15 Flecainide Acetate 50 Mg Tablet PO 50 mg BID KASSIDY Administration Sodium Chloride 1,000 mls @ 80 mls/hr 09/08/20 18:50 09/09/20 09:39 Ns IVCONT 80 mls/hr .[id number] KASSIDY Administration Levetiracetam 250 mg 09/08/20 16:09 09/09/20 10:17 Levetiracetam 250 Mg Tablet PO 250 mg BID KASSIDY Administration Metoprolol Succinate 12.5 mg 09/09/20 09:00 09/09/20 10:11 Metoprolol Succinate Er 25 Mg Tab.Er.24h PO 12.5 mg DAILY KASSIDY Administration Protocol Ondansetron HCl 4 mg 09/08/20 18:50 Ondansetron Hcl 4 Mg/2 Ml Vial IVPUSH Q8H PRN Nausea and Vomiting Pharmacy Consult 1 each 09/08/20 15:56 Consult Rx Perform Med Rec MISCELLANE ONCE PRN Consult order Sodium Chloride 3 ml 09/09/20 00:00 09/09/20 07:15 0.9 % Sodium Chloride Flush 3 Ml Syringe IVFLUSH Not Given QSHIFT [facility] Timolol Maleate 1 drop 09/09/20 09:00 09/09/20 10:19 Timolol Maleate 0.5 % Oph Luz Elena 5 Ml Drbtl EYE-BOTH 1 drop DAILY KASSIDY Administration Vitamin D 25 mcg 09/09/20 09:00 09/09/20 10:16 Cholecalciferol (Vitamin D3) 25 Mcg Tablet PO 25 mcg DAILY KASSIDY Administration Home Medications Medication Instructions Recorded Confirmed Last Taken Type ascorbic acid (vitamin C) [Vitamin 500 mg PO DAILY 06/02/20 09/08/20 09/07/20 History C] cholecalciferol (vitamin D3) 25 mcg PO DAILY 06/02/20 09/08/20 09/07/20 History [Vitamin D3] cyanocobalamin (vitamin B-12) 1,000 mcg PO DAILY 06/02/20 09/08/20 09/07/20 History [Vitamin B-12] ferrous sulfate 325 mg PO DAILY 06/02/20 09/08/20 09/07/20 History timolol 1 drp OPHTHALMIC (EYE) DAILY 06/03/20 09/08/20 09/07/20 History metoprolol succinate 25 mg 12.5 mg PO DAILY tab 07/08/20 09/08/20 09/07/20 History tablet,extended release 24 hr warfarin 2.5 mg PO TUFR@1800 09/08/20 09/08/20 09/07/20 History warfarin 5 mg PO SUMOWETHSA@1800 09/08/20 09/08/20 09/07/20 History Physical Exam Vital Signs: Vital Signs: Last Vital Signs Temp 97.0 F 09/09/20 07:54 Pulse 80 09/09/20 10:15 Resp 13 09/09/20 07:54 BP 119/55 L 09/09/20 10:15 Pulse Ox 95 09/09/20 07:54 Body Mass Index 19.0 She was alert and awake with normal spontaneity of speech fluency comprehension and anxious affect. Pupils were equal and reactive to light and extraocular muscles were intact. Visual wall are full to threat. Face was symmetrical. There was no obvious focal arm or leg weakness or ataxia. Deep tendon reflexes were trace with left equivocal or extensor and right flexor plantar. Results Labs CBC & Chem 7: 09/09/20 06:02 09/09/20 06:02 Labs: Short CBC 09/09/20 Range/Units 06:02 WBC 4.5 L (4.8-10.8) X10*3/uL Hgb 12.3 (12.0-16.0) g/dl Hct 37.2 (37-47) % Plt Count 146 L (160-400) X10*3/uL BMP 09/09/20 06:02 Sodium 144 Potassium 3.4 Chloride 109 H Carbon Dioxide 27 BUN 12 Creatinine 0.68 [address]cium [address] initially revealed a small area of hyperdensity in left frontal deep white matter suggestive of acute intracerebral hemorrhage. Two repeated CT scan including the 1 today her revealed resolution of that is signal abnormality. Other than that quite significant chronic microvascular ischemic changes and some cerebral atrophy was noted. Assessment and Plan (1) Bleeding in brain: Qualifiers: Cerebral hemorrhage location: other cerebral location Laterality: left Status: Acute Small intracerebral hemorrhage that was mostly resolved at this point. My recommendation is to restart anticoagulation after this weekend. (2) Vertigo: Status: Acute Likely benign paroxysmal positional vertigo triggered by repeated hair washing. She was reassured and educated but in her age with underlying anxiety this could be a significant issue. Mainstay of management is reassurance and education and avoidance of activity that could make it worse. Sometime patient require small dose of and anxiety medicine such as small dose of diazepam. I would avoid vestibular therapies that would be difficult to do in her age group in could make symptoms worse. Simple home bedside maneuvers might help. I do not think this symptom was related to the finding on her CT scan.
--- NOTE | 2020-09-09 11:46 | HO.PM.IMPN ---
Subjective Subjective Interval History: late entry note for 09/09, Persistent dizziness Review of Systems Gen: no fever Resp: no sob, no cough CV: no chest, no BROWN, no leg edema GI: No n/v, no abd pain Neuro: dizziness Physical Exam Vital Signs: Vital Signs: Last Vital Signs vitals from 09/09 were reviewed Body Mass Index 19.0 Const: Other: Constitutional : Alert, oriented, not in distress Neck : Normal inspection, Supple Cardiovascular : RRR, S1 S2, no lower extremity edema Respiratory : Good bilateral air entry, no crackles, wheezes or rhonchi Gastrointestinal: soft, lax, Normal bowel sounds, Non tender Skin : Warm/Dry, No rash Neurological : Alert & oriented x3, No focal deficit Objective Data Current Medications Generic Name Dose Route Start Last Admin Trade Name Freq PRN Reason Stop Dose Admin Acetaminophen 650 mg 09/08/20 18:50 Acetaminophen 325 Mg Tablet PO Q6H PRN Pain, Mild (Pain Scale 1-3) Ascorbic Acid 500 mg 09/09/20 09:00 09/10/20 08:52 Ascorbic Acid 500 Mg Tablet PO 500 mg DAILY KASSIDY Administration Cyanocobalamin 1,000 mcg 09/09/20 09:00 09/10/20 08:52 Cyanocobalamin (Vitamin B-12) 1,000 Mcg Tablet PO 1,000 mcg DAILY KASSIDY Administration Flecainide Acetate 50 mg 09/08/20 21:00 09/10/20 08:52 Flecainide Acetate 50 Mg Tablet PO 50 mg BID KASSIDY Administration Levetiracetam 250 mg 09/08/20 16:09 09/10/20 08:52 Levetiracetam 250 Mg Tablet PO 250 mg BID KASSIDY Administration Metoprolol Succinate 12.5 mg 09/09/20 09:00 09/10/20 08:51 Metoprolol Succinate Er 25 Mg Tab.Er.24h PO 12.5 mg DAILY KASSIDY Administration Protocol Ondansetron HCl 4 mg 09/08/20 18:50 Ondansetron Hcl 4 Mg/2 Ml Vial IVPUSH Q8H PRN Nausea and Vomiting Pharmacy Consult 1 each 09/08/20 15:56 Consult Rx Perform Med Rec MISCELLANE ONCE PRN Consult order Sodium Chloride 3 ml 09/09/20 00:00 09/10/20 08:52 0.9 % Sodium Chloride Flush 3 Ml Syringe IVFLUSH Not Given QSHIFT KASSIDY Timolol Maleate 1 drop 09/09/20 09:00 09/10/20 10:39 Timolol Maleate 0.5 % Oph Luz Elena 5 Ml Drbtl EYE-BOTH 1 drop DAILY KASSIDY Administration Vitamin D 25 mcg 09/09/20 09:00 09/10/20 08:52 Cholecalciferol (Vitamin D3) 25 Mcg Tablet PO 25 mcg DAILY KASSIDY Administration Labs CBC & Chem 7: 09/09/20 06:02 09/09/20 06:02 Assessment and Plan (1) Bleeding in brain: Status: Acute (2) PAF (paroxysmal atrial fibrillation): Status: Acute Assessment and Plan: 85 years old male with PMH of PAF, seizure disorder, CAD, protein S deficiency, HLD among others who presented to the hospital with vertigo and dizziness. Intracranial bleed Vertigo Small focus of hemorrhage in left frontal per CTA--repeat CT unchnaged Neuro doesn't think this is the cause of dizziness and likely incidental finding and coumadin can be resumed after a week Supratherapeutic INR INR of 3.5 Received FFP and vitamin K in ED, INR now down AFib Protein S deficiency Hold Coumadin continue metoprolol and flecainide sick sinus syndrome pacemaker in place CAD continue metoprolol and statin PTeval DVT prophylaxis SCDs
--- NOTE | 2020-09-09 14:30 | MHC.CM.PN ---
nurse neonatal intensive care nurse note electronic medical record reviewed along with case discussed on multiple disciplinary rounds, met with patient explained the role of the nurse neonatal intensive care nurse in transition from the hospital to home. patient reported that she had a similar episode like this before and came to the hospital and had multiple tests. she reported she lives with her and has been independent in all her adls house hold activities and mobility with out any device she reported she still drives, she is followed by cardiology for her pacemaker and a-fib and the hvna draws her blood work. she has been evaluated by the neurologist this morning discharge plan home with the mony cappsa for diagnosis sign symptom management , detail plan of whom to call for what and when . medication reconcialtion labs draws (
--- NOTE | 2020-09-09 14:46 | MHC.CLN ---
RE: CONSULT PT IS SEVERELY MALNOURISHED PT WITH MODERATELY DEPLETED SUBCUTANOUES FAT AND MUSCLE MASS, BMI 19, 17% SIGNIFICANT WT LOSS X 6MONTHS AND POOR PO DIET RX: 2GM NA BLAND-RECOMMEND LIBERALIZING DIET TO OFFER VARIETY & INCREASE KCALS PT PREFERS SMALL PORTIONS PT C/O SWALLOWING ISSUES ESPECIALLY WITH THIN LIQ. HAT FORMING MACHINE FEEDER NOTIFIED PT RECEPTIVE TO ENSURE BID TO INCREASE KCALS SUPPLEMENT TO PROVIDE 700KCALS, 40G PROTEIN SEE ALSO CLINICAL NUTRITION ASSESSMENT
--- NOTE | 2020-09-09 17:18 | MHC.SLORD ---
Speech Language Pathology Order Status: Order for speech consult received. Patient had MBSS on 06/14/20. No evidence of penetration or aspiration. Swallow function deemed WFL at that time. Patient was recommended regular solids, thin liquids, and pills in puree if patient has trouble. Patient complained of voice changes as well at that time. Patient was also recommended consult with neurologist due to voice/dysphagia and with ENT due to bulge in neck. Please refer to full MBSS report in Expanse under Patient Care. If dysphagia has worsened, patient may benefit from repeat MBSS. PROMOTIONS MANAGER messaged Dr. Falcon.
[2020-09-10 03:12] VITALS: BP 92/48; PULSE 65; RESP 15; TEMP 36.8; O2SAT 95
[2020-09-10 07:50] VITALS: BP 138/71; PULSE 61; RESP 15; TEMP 36.3; O2SAT 96
[2020-09-10] MEDS: Metoprolol Succinate ER 25 MG TAB.ER.24H 12.5 MG PO (08:51)
[2020-09-10] MEDS: 0.9 % Sodium Chloride 1,000 ML 80 ML IVCONT (08:51)
[2020-09-10] MEDS: Cholecalciferol (Vitamin D3) 25 MCG TABLET PO (08:52)
[2020-09-10] MEDS: Flecainide Acetate 50 MG TABLET PO ×2 (08:52→21:49)
[2020-09-10] MEDS: Ascorbic Acid 500 MG TABLET PO (08:52)
[2020-09-10] MEDS: Cyanocobalamin (Vitamin B-12) 1,000 MCG TABLET 1000 MCG PO (08:52)
[2020-09-10] MEDS: levETIRAcetam 250 MG TABLET PO ×2 (08:52→21:49)
[2020-09-10] MEDS: timoloL maleate 0.5 % Oph Sol 5 ML DRBTL 1 DROP EYE-BOTH (10:39)
[2020-09-10 12:00] VITALS: BP 111/64; PULSE 70; RESP 15; TEMP 37.1; O2SAT 96
--- NOTE | 2020-09-10 14:41 | MHC.CLN ---
F/U PO INTAKE 25% DIET RX: REGULAR-HEALTH INFORMATION TECH RECOMMEND GRD WITH HT LIQ SEE REC 4/2 PT RECEPTIVE TO DRINKING ENSURE BID TO INCREASE KCALS WILL CHANGE DIET TO GRD WITH HT LIQ PER HEALTH INFORMATION TECH REC MONITOR PO INTAKE CLOSELY
[2020-09-10 15:41] VITALS: BP 138/74; PULSE 68; RESP 16; TEMP 37.2; O2SAT 99
[2020-09-10 19:11] VITALS: BP 116/60; PULSE 83; RESP 15; TEMP 37.1; O2SAT 97
[2020-09-10 21:49] VITALS: BP 139/73; PULSE 73
[2020-09-10] MEDS: 0.9 % Sodium Chloride Flush 3 ML SYRINGE IVFLUSH (21:53)
[2020-09-11] VITALS (8 sets, daily range): BP systolic 90–158; BP diastolic 44–80; PULSE 65–79; RESP 16–19; TEMP 36.6–37; O2SAT 94–98
[2020-09-11] MEDS: Flecainide Acetate 50 MG TABLET PO ×2 (09:04→20:47)
[2020-09-11] MEDS: Cholecalciferol (Vitamin D3) 25 MCG TABLET PO (09:04)
[2020-09-11] MEDS: Cyanocobalamin (Vitamin B-12) 1,000 MCG TABLET 1000 MCG PO (09:04)
[2020-09-11] MEDS: 0.9 % Sodium Chloride Flush 3 ML SYRINGE IVFLUSH ×3 (09:04→20:51)
[2020-09-11] MEDS: Ascorbic Acid 500 MG TABLET PO (09:04)
[2020-09-11] MEDS: levETIRAcetam 250 MG TABLET PO ×2 (09:04→20:47)
[2020-09-11] MEDS: Metoprolol Succinate ER 25 MG TAB.ER.24H 12.5 MG PO (09:05)
[2020-09-11] MEDS: timoloL maleate 0.5 % Oph Sol 5 ML DRBTL 1 DROP EYE-BOTH (09:05)
--- NOTE | 2020-09-11 09:06 | HO.PM.IMPN ---
Subjective Subjective Date of Service: 09/11/20 Interval History: f/u. Peristent vertigo Review of Systems Gen: no fever Resp: no sob, no cough CV: no chest, no BROWN, no leg edema GI: No n/v, no abd pain Neuro: dizziness (vertigo) Physical Exam Vital Signs: Vital Signs: Last Vital Signs Temp 98.0 F 09/11/20 07:49 Pulse 78 09/11/20 07:49 Resp 18 09/11/20 07:49 BP 158/80 H 09/11/20 07:49 Pulse Ox 94 09/11/20 07:49 Body Mass Index 19.0 Const: Other: Constitutional : Alert, oriented, not in distress Neck : Normal inspection, Supple Cardiovascular : RRR, S1 S2, no lower extremity edema Respiratory : Good bilateral air entry, no crackles, wheezes or rhonchi Gastrointestinal: soft, lax, Normal bowel sounds, Non tender Skin : Warm/Dry, No rash Neurological : Alert & oriented x3, No focal deficit, no nystagmus Objective Data Current Medications Generic Name Dose Route Start Last Admin Trade Name Freq PRN Reason Stop Dose Admin Acetaminophen 650 mg 09/08/20 18:50 Acetaminophen 325 Mg Tablet PO Q6H PRN Pain, Mild (Pain Scale 1-3) Ascorbic Acid 500 mg 09/09/20 09:00 09/10/20 08:52 Ascorbic Acid 500 Mg Tablet PO 500 mg DAILY KASSIDY Administration Cyanocobalamin 1,000 mcg 09/09/20 09:00 09/10/20 08:52 Cyanocobalamin (Vitamin B-12) 1,000 Mcg Tablet PO 1,000 mcg DAILY KASSIDY Administration Flecainide Acetate 50 mg 09/08/20 21:00 09/10/20 21:49 Flecainide Acetate 50 Mg Tablet PO 50 mg BID KASSIDY Administration Levetiracetam 250 mg 09/08/20 16:09 09/10/20 21:49 Levetiracetam 250 Mg Tablet PO 250 mg BID KASSIDY Administration Metoprolol Succinate 12.5 mg 09/09/20 09:00 09/10/20 08:51 Metoprolol Succinate Er 25 Mg Tab.Er.24h PO 12.5 mg DAILY KASSIDY Administration Protocol Ondansetron HCl 4 mg 09/08/20 18:50 Ondansetron Hcl 4 Mg/2 Ml Vial IVPUSH Q8H PRN Nausea and Vomiting Pharmacy Consult 1 each 09/08/20 15:56 Consult Rx Perform Med Rec MISCELLANE ONCE PRN Consult order Sodium Chloride 3 ml 09/09/20 00:00 09/10/20 21:53 0.9 % Sodium Chloride Flush 3 Ml Syringe IVFLUSH 3 ml QSHIFT KASSIDY Administration Timolol Maleate 1 drop 09/09/20 09:00 09/10/20 10:39 Timolol Maleate 0.5 % Oph Luz Elena 5 Ml Drbtl EYE-BOTH 1 drop DAILY KASSIDY Administration Vitamin D 25 mcg 09/09/20 09:00 09/10/20 08:52 Cholecalciferol (Vitamin D3) 25 Mcg Tablet PO 25 mcg DAILY KASSIDY Administration Labs CBC & Chem 7: 09/09/20 06:02 09/09/20 06:02 Assessment and Plan (1) Bleeding in brain: Status: Acute (2) PAF (paroxysmal atrial fibrillation): Status: Acute Assessment and Plan: 85 years old male with PMH of PAF, seizure disorder, CAD, protein S deficiency, HLD among others who presented to the hospital with vertigo and dizziness. Intracranial bleed Small focus of hemorrhage in left frontal per CTA--repeat CT unchnaged Neuro doesn't think this is the cause of dizziness and likely incidental finding and coumadin can be resumed after a week Vertigo--likely positional type, Meclizine PRN, rehab by tomorrow if better Supratherapeutic INR--3.5 on admit, reversed AFib Protein S deficiency Hold Coumadin as stated continue metoprolol and flecainide sick sinus syndrome pacemaker in place CAD continue metoprolol and statin PTeval DVT prophylaxis SCDs
[2020-09-11] MEDS: Meclizine HCl 12.5 MG TABLET PO (14:21)
[2020-09-12] VITALS (7 sets, daily range): BP systolic 100–119; BP diastolic 48–78; PULSE 66–82; RESP 16–19; TEMP 36.5–37; O2SAT 94–98
[2020-09-12] MEDS: Cholecalciferol (Vitamin D3) 25 MCG TABLET PO (09:05)
[2020-09-12] MEDS: 0.9 % Sodium Chloride Flush 3 ML SYRINGE IVFLUSH ×3 (09:05→22:56)
[2020-09-12] MEDS: Cyanocobalamin (Vitamin B-12) 1,000 MCG TABLET 1000 MCG PO (09:05)
[2020-09-12] MEDS: Ascorbic Acid 500 MG TABLET PO (09:05)
[2020-09-12] MEDS: levETIRAcetam 250 MG TABLET PO ×2 (09:05→19:54)
[2020-09-12] MEDS: timoloL maleate 0.5 % Oph Sol 5 ML DRBTL 1 DROP EYE-BOTH (09:06)
[2020-09-12] MEDS: Metoprolol Succinate ER 25 MG TAB.ER.24H 12.5 MG PO (09:11)
[2020-09-12] MEDS: Flecainide Acetate 50 MG TABLET PO ×2 (09:11→19:54)
--- NOTE | 2020-09-12 10:32 | HO.PM.IMPN ---
Subjective Subjective Date of Service: 09/12/20 Interval History: f/u vertigo, feels tired with after Meclizine but no vertigo this morning. Review of Systems Gen: no fever Resp: no sob, no cough CV: no chest, no BROWN, no leg edema GI: No n/v, no abd pain Neuro: dizziness (vertigo) Physical Exam Vital Signs: Vital Signs: Last Vital Signs Temp 98.5 F 09/12/20 07:45 Pulse 82 09/12/20 09:11 Resp 18 09/12/20 07:45 BP 119/78 09/12/20 09:11 Pulse Ox 95 09/12/20 07:45 Body Mass Index 19.0 Const: Other: Constitutional : Alert, oriented, not in distress Neck : Normal inspection, Supple Cardiovascular : RRR, S1 S2, no lower extremity edema Respiratory : Good bilateral air entry, no crackles, wheezes or rhonchi Gastrointestinal: soft, lax, Normal bowel sounds, Non tender Skin : Warm/Dry, No rash Neurological : Alert & oriented x3, No focal deficit, no nystagmus Objective Data Current Medications Generic Name Dose Route Start Last Admin Trade Name Freq PRN Reason Stop Dose Admin Acetaminophen 650 mg 09/08/20 18:50 Acetaminophen 325 Mg Tablet PO Q6H PRN Pain, Mild (Pain Scale 1-3) Ascorbic Acid 500 mg 09/09/20 09:00 09/12/20 09:05 Ascorbic Acid 500 Mg Tablet PO 500 mg DAILY KASSIDY Administration Cyanocobalamin 1,000 mcg 09/09/20 09:00 09/12/20 09:05 Cyanocobalamin (Vitamin B-12) 1,000 Mcg Tablet PO 1,000 mcg DAILY KASSIDY Administration Flecainide Acetate 50 mg 09/08/20 21:00 09/12/20 09:11 Flecainide Acetate 50 Mg Tablet PO 50 mg BID KASSIDY Administration Levetiracetam 250 mg 09/08/20 16:09 09/12/20 09:05 Levetiracetam 250 Mg Tablet PO 250 mg BID KASSIDY Administration Meclizine HCl 12.5 mg 09/11/20 09:05 09/11/20 14:21 Meclizine Hcl 12.5 Mg Tablet PO 12.5 mg Q6H PRN Administration Vertigo Metoprolol Succinate 12.5 mg 09/09/20 09:00 09/12/20 09:11 Metoprolol Succinate Er 25 Mg Tab.Er.24h PO 12.5 mg DAILY KASSIDY Administration Protocol Ondansetron HCl 4 mg 09/08/20 18:50 Ondansetron Hcl 4 Mg/2 Ml Vial IVPUSH Q8H PRN Nausea and Vomiting Pharmacy Consult 1 each 09/08/20 15:56 Consult Rx Perform Med Rec MISCELLANE ONCE PRN Consult order Sodium Chloride 3 ml 09/09/20 00:00 09/12/20 09:05 0.9 % Sodium Chloride Flush 3 Ml Syringe IVFLUSH 3 ml QSHIFT KASSIDY Administration Timolol Maleate 1 drop 09/09/20 09:00 09/12/20 09:06 Timolol Maleate 0.5 % Oph Luz Elena 5 Ml Drbtl EYE-BOTH 1 drop DAILY KASSIDY Administration Vitamin D 25 mcg 09/09/20 09:00 09/12/20 09:05 Cholecalciferol (Vitamin D3) 25 Mcg Tablet PO 25 mcg DAILY KASSIDY Administration Labs CBC & Chem 7: 09/09/20 06:02 09/09/20 06:02 Assessment and Plan (1) Bleeding in brain: Status: Acute (2) PAF (paroxysmal atrial fibrillation): Status: Acute Assessment and Plan: 85 years old male with PMH of PAF, seizure disorder, CAD, protein S deficiency, HLD among others who presented to the hospital with vertigo and dizziness. Intracranial bleed Small focus of hemorrhage in left frontal per CTA--repeat CT unchnaged Neuro doesn't think this is the cause of dizziness and likely incidental finding and coumadin can be resumed after a week Vertigo--positional vertigo, Meclizine PRN, rehab by tomorrow if better, reduce Supratherapeutic INR--3.5 on admit, reversed AFib Protein S deficiency Hold Coumadin as stated continue metoprolol and flecainide sick sinus syndrome pacemaker in place CAD continue metoprolol and statin Out of bed, ambulate, PT recommends STR DVT prophylaxis SCDs
[2020-09-12] MEDS: Meclizine HCl 12.5 MG TABLET 6.25 MG PO (13:49)
[2020-09-12] MEDS: Milk of Magnesia 30 ML ORAL.SUSP PO (13:49)
[2020-09-12] MEDS: Docusate Sodium 100 MG CAPSULE PO (19:54)
[2020-09-13] VITALS (7 sets, daily range): BP systolic 100–140; BP diastolic 50–73; PULSE 69–75; RESP 16–19; TEMP 36.1–36.7; O2SAT 94–99
--- NOTE | 2020-09-13 09:10 | HO.PM.IMPN ---
Subjective Subjective Date of Service: 09/13/20 Interval History: f/u vertigo, still with vague complaint of something in head, dizzy/vertigo when move Review of Systems Gen: no fever Resp: no sob, no cough CV: no chest, no BROWN, no leg edema GI: No n/v, no abd pain Neuro: dizziness (vertigo) Physical Exam Vital Signs: Vital Signs: Last Vital Signs Temp 97.0 F 09/13/20 08:00 Pulse 75 09/13/20 08:00 Resp 16 09/13/20 08:00 BP 110/65 09/13/20 08:00 Pulse Ox 96 09/13/20 08:00 Body Mass Index 19.0 Const: Other: Constitutional : Alert, oriented, not in distress Neck : Normal inspection, Supple Cardiovascular : RRR, S1 S2, no lower extremity edema Respiratory : Good bilateral air entry, no crackles, wheezes or rhonchi Gastrointestinal: soft, lax, Normal bowel sounds, Non tender Skin : Warm/Dry, No rash Neurological : Alert & oriented x3, No focal deficit, no nystagmus Objective Data Current Medications Generic Name Dose Route Start Last Admin Trade Name Freq PRN Reason Stop Dose Admin Acetaminophen 650 mg 09/08/20 18:50 Acetaminophen 325 Mg Tablet PO Q6H PRN Pain, Mild (Pain Scale 1-3) Ascorbic Acid 500 mg 09/09/20 09:00 09/12/20 09:05 Ascorbic Acid 500 Mg Tablet PO 500 mg DAILY KASSIDY Administration Cyanocobalamin 1,000 mcg 09/09/20 09:00 09/12/20 09:05 Cyanocobalamin (Vitamin B-12) 1,000 Mcg Tablet PO 1,000 mcg DAILY KASSIDY Administration Docusate Sodium 100 mg 09/12/20 11:45 09/12/20 19:54 Docusate Sodium 100 Mg Capsule PO 100 mg BID KASSIDY Administration Flecainide Acetate 50 mg 09/08/20 21:00 09/12/20 19:54 Flecainide Acetate 50 Mg Tablet PO 50 mg BID KASSIDY Administration Levetiracetam 250 mg 09/08/20 16:09 09/12/20 19:54 Levetiracetam 250 Mg Tablet PO 250 mg BID KASSIDY Administration Magnesium Hydroxide 30 ml 09/12/20 11:45 09/12/20 13:49 Milk Of Magnesia 30 Ml Oral.Susp PO 30 ml DAILY PRN Administration Constipation Meclizine HCl 6.25 mg 09/12/20 13:38 09/12/20 13:49 Meclizine Hcl 12.5 Mg Tablet PO 6.25 mg Q6H PRN Administration Vertigo Metoprolol Succinate 12.5 mg 09/09/20 09:00 09/12/20 09:11 Metoprolol Succinate Er 25 Mg Tab.Er.24h PO 12.5 mg DAILY KASSIDY Administration Protocol Ondansetron HCl 4 mg 09/08/20 18:50 Ondansetron Hcl 4 Mg/2 Ml Vial IVPUSH Q8H PRN Nausea and Vomiting Pharmacy Consult 1 each 09/08/20 15:56 Consult Rx Perform Med Rec MISCELLANE ONCE PRN Consult order Sodium Chloride 3 ml 09/09/20 00:00 09/12/20 22:56 0.9 % Sodium Chloride Flush 3 Ml Syringe IVFLUSH 3 ml QSHIFT KASSIDY Administration Timolol Maleate 1 drop 09/09/20 09:00 09/12/20 09:06 Timolol Maleate 0.5 % Oph Luz Elena 5 Ml Drbtl EYE-BOTH 1 drop DAILY KASSIDY Administration Vitamin D 25 mcg 09/09/20 09:00 09/12/20 09:05 Cholecalciferol (Vitamin D3) 25 Mcg Tablet PO 25 mcg DAILY KASSIDY Administration Labs CBC & Chem 7: 09/09/20 06:02 09/09/20 06:02 Assessment and Plan (1) Bleeding in brain: Status: Acute (2) PAF (paroxysmal atrial fibrillation): Status: Acute Assessment and Plan: 85 years old male with PMH of PAF, seizure disorder, CAD, protein S deficiency, HLD among others who presented to the hospital with vertigo and dizziness. Intracranial bleed Small focus of hemorrhage in left frontal per CTA--repeat CT unchnaged Neuro doesn't think this is the cause of dizziness and likely incidental finding and coumadin can be resumed after a week Vertigo--positional vertigo, Meclizine PRN, PT to reassess for rehab Supratherapeutic INR--3.5 on admit, reversed AFib Protein S deficiency Hold Coumadin as stated continue metoprolol and flecainide sick sinus syndrome pacemaker in place CAD continue metoprolol and statin Out of bed, ambulate, Dysphagia, speech to reassses, may need MBS PT recommends STR DVT prophylaxis SCDs
[2020-09-13] MEDS: Docusate Sodium 100 MG CAPSULE PO ×2 (09:48→21:06)
[2020-09-13] MEDS: Cholecalciferol (Vitamin D3) 25 MCG TABLET PO (09:48)
[2020-09-13] MEDS: Metoprolol Succinate ER 25 MG TAB.ER.24H 12.5 MG PO (09:48)
[2020-09-13] MEDS: Cyanocobalamin (Vitamin B-12) 1,000 MCG TABLET 1000 MCG PO (09:48)
[2020-09-13] MEDS: Ascorbic Acid 500 MG TABLET PO (09:50)
[2020-09-13] MEDS: levETIRAcetam 250 MG TABLET PO ×2 (09:50→21:06)
[2020-09-13] MEDS: Flecainide Acetate 50 MG TABLET PO ×2 (09:50→21:06)
[2020-09-13] MEDS: timoloL maleate 0.5 % Oph Sol 5 ML DRBTL 1 DROP EYE-BOTH (09:51)
[2020-09-13] MEDS: 0.9 % Sodium Chloride Flush 3 ML SYRINGE IVFLUSH ×2 (09:55→17:16)
--- NOTE | 2020-09-13 13:18 | MHC.SLORD ---
Speech Language Pathology Order Status: Patient is recommended GROUND/[facility] (NDD2) solids and NECTAR THICK liquids with pills CRUSHED when possible in PUREE (yogurt). Question if dysphagia has worsened. Patient may benefit from repeat MBSS. \However, previous MBSS this year was unremarkable and patient appears very anxious when discussing dysphagia and when eating/drinking. Patient requested several accommodations to her dysphagia: -Patient reports that liquids from the cafeteria are much too thick and stick when flipping the cup upside down. CHURCH ADMINISTRATOR brought thickener packets and demonstrated what nectar thick liquid should look like. CHURCH ADMINISTRATOR explained that thickened drinks will become even thicker with time. CHURCH ADMINISTRATOR suggested having small cup of water at bedside with her meals to mix with liquids to achieve desired nectar thick consistency. Patient reports that nectar thick liquids go down good, but thicker liquids get stuck. -Patient requested to have pills in yogurt. She reports that pudding is too thick. Patient states that she needs liquid after taking pills as well. Recommend crushed pills when possible. -Patient reports improved swallowing when drinking or eating warm drinks/food. Patient has aversion to ice cold drinks. CHURCH ADMINISTRATOR to follow with trials of thin liquids tomorrow morning.
--- NOTE | 2020-09-13 15:47 | MHC.CM.PN ---
NURSE CARE MANGER NOTE EKLECTRONIC MEDICAL RECORD REVIEWED ALONG WITH CASE DISCUSSED ON MULTIPLE DISCIPALINRY REROUNDS, I TRIED TO REACH PATIENTS AND DTR AND GRAND DAUGHTER /HCP SUDHIR REYES UNSUCCESSFUL VOPICE MESSAGE LEFT TO HAVE THEM CALL ME , OATIENT WAS VERY UPSET THAT THE DOCTOR FELT SHE SHOULD BE DISCHARGED TODAY , (SHE VOICES THAT SHE HAS NOT BEEN EVEN GETTING OUT OF BED, SHE STILL HAS DIZZINESS AND WHEN STAFF COME IN ANS ASKE HER IF SHE ANSWERES YES THAN THEY DOO NOT GET HER OUT OF BED , NOT EVEN TO THE CHAIR) AT FIRST SHE WAS STRONGLY RESISTANT TO EVEN ALLOW ME TO MAKE ANY SHORT TERM REHAB REFERRALS As she was going to uses some of her own financies to pay for 24 hr care in the home, she allowed me to make referrals to [facility] and to [facility]
--- NOTE | 2020-09-13 16:39 | MHC.CM.PN ---
nurse care lyssa note electronic meeical record reviewed alongw ith case discussedon multiple discip[alinry rounds met with patient with syriac interperter she strongly refused to go to inpatient rehab she wants to go home, she lives alone but her brother lives close by and is willing to learn how to administer the iv abx via pic line, i informed him he would be required to comne bid 8am -8pm for 6 weeks. he also said that the budget counselor can learn , i voiced concern about this and the fact that she also has wound dressing and will need to be followed by the wound clinic she allowed me to make referrals after i came back and spoke with her further that i was unable to secure a nursing agency to provide these services . multiple referrals were sent out dong gomez notified [facility] insurance for additional nina vna agencies spoke with jennifer,
[2020-09-14] VITALS (11 sets, daily range): BP systolic 87–123; BP diastolic 46–84; PULSE 71–85; RESP 15–19; TEMP 36–37.1; O2SAT 92–96
[2020-09-14] MEDS: 0.9 % Sodium Chloride Flush 3 ML SYRINGE IVFLUSH ×3 (00:04→15:28)
[2020-09-14] MEDS: Meclizine HCl 12.5 MG TABLET 6.25 MG PO ×2 (00:13→21:04)
[2020-09-14] MEDS: levETIRAcetam 250 MG TABLET PO ×2 (10:09→21:10)
[2020-09-14] MEDS: Cholecalciferol (Vitamin D3) 25 MCG TABLET PO (10:09)
[2020-09-14] MEDS: Docusate Sodium 100 MG CAPSULE PO ×2 (10:09→21:05)
[2020-09-14] MEDS: Metoprolol Succinate ER 25 MG TAB.ER.24H 12.5 MG PO (10:15)
[2020-09-14] MEDS: Flecainide Acetate 50 MG TABLET PO ×2 (10:16→21:09)
[2020-09-14] MEDS: Ascorbic Acid 500 MG TABLET PO (10:16)
[2020-09-14] MEDS: Cyanocobalamin (Vitamin B-12) 1,000 MCG TABLET 1000 MCG PO (10:17)
[2020-09-14] MEDS: timoloL maleate 0.5 % Oph Sol 5 ML DRBTL 1 DROP EYE-BOTH (10:31)
--- NOTE | 2020-09-14 11:55 | P.DS_ITS ---
DS: Providers Provider Date of Service: 10/11/20 Date of admission: 09/08/20 16:09 Discharged day: 09/15/20 Primary care physician: Unknown Physician Consults: 09/08/20 18:50 Consult to Neurology Routine Consulting Provider: [facility] Reason for consultation: Evaluation of ICH DS: Diagnosis Discharge Diagnosis (1) Bleeding in brain: Status: Acute (2) PAF (paroxysmal atrial fibrillation): Status: Acute DS: Medications Discharge Medications Home Medications: Home Medications Medication Instructions Recorded Confirmed ascorbic acid (vitamin C) [Vitamin 500 mg PO DAILY 06/02/20 09/08/20 C] cholecalciferol (vitamin D3) 25 mcg PO DAILY 06/02/20 09/08/20 [Vitamin D3] cyanocobalamin (vitamin B-12) 1,000 mcg PO DAILY 06/02/20 09/08/20 [Vitamin B-12] ferrous sulfate 325 mg PO DAILY 06/02/20 09/08/20 timolol 1 drp OPHTHALMIC (EYE) DAILY 06/03/20 09/08/20 metoprolol succinate 25 mg 12.5 mg PO DAILY tab 07/08/20 09/08/20 tablet,extended release 24 hr warfarin 2.5 mg PO TUFR@1800 09/08/20 09/08/20 warfarin 5 mg PO SUMOWETHSA@1800 09/08/20 09/08/20 Previous Rx's Medication Instructions Recorded flecainide 50 mg tablet 50 mg PO BID #180 tab 05/16/20 levetiracetam 250 mg PO BID #60 tab 06/05/20 simvastatin 10 mg tablet 10 mg PO BEDTIME #90 tab 07/21/20 DS: Summary Hospital Course Hospital Course: HPI: This is an 84-year-old female with past medical history of AFib with pacemaker, CAD, history of PE status post IVC filter, HLD, HTN, IBS, sick sinus syndrome, who presents to the hospital with complaints of syncopal episode. Patient repo rts that she was at the dining table having dinner with her , granddaughter and grandson when all the sudden she passed out. She does not remember what happened completely but the last thing she remembers was that she was eating dinner and all of a sudden she started feeling strange, did not know was happening, became cloudy in thought, and the next thing she remembers she woke up on the floor confused as to how she got there. She denies having any palpitations, vertigo, dizziness, chest pain, or shortness of breath prior to the episode occurring. She was slightly confused when she woke up but had no weakness numbness or tingling. She did not have any stroke-like activity. She had no nausea or vomiting. No diarrhea constipation or loss of bowel or bladder control. Has not has similar episode to this in the past but has fallen otherwise. To the ED hemodynamically stable with blood pressure of 111/63, heart rate of 72, respiratory rate of 18, satting 97% on room air Labs are significant for hemoglobin of 12.8, hematocrit of 38.6, sodium of 140, potassium of 4.0, BUN of 17, creatinine of 0.94, BNP of 140, troponin negative Sinus rhythm with first-degree AV block, left axis deviation, with no significant change as compared to EKG from September 2018 Shows no acute intrathoracic disease Past medical history: AFib, CAD, history of PE status post IVC filter, hyperlipidemia, hypertension, IBS, sick sinus syndrome status post pacemaker Surgical history: IVC, breast surgery, appendectomy, oophorectomy Family history: Coronary artery disease, [place] social history: Comes from home, lives with her , walks independently, denies any tobacco alcohol or illicit drug Hospital course: Small focus of hemorrhage in left frontal per CTA--repeat CT unchnaged Neuro doesn't think this is the cause of dizziness and likely incidental finding and coumadin can be resumed after a week, so restarting coumadin after today Vertigo--positional vertigo, Meclizine PRN, PT to reassess for rehab Supratherapeutic INR--reversed, coumadin to be restarted today AFib--continue Metoprolol and coumadin as above sick sinus syndrome pacemaker in place CAD continue metoprolol and statin Out of bed, ambulate, Dysphagia, has had a Modified Barium study that was unremarkable. Speech recommend chopped food and crushed pillls Time Spent with Patient Time attestation: Total time spent providing and/or coordinating discharge services: Discharge coordination time: Greater than 30 minutes Physical Exam Vital Signs: Vital Signs: Selected Entries 09/15/20 07:34 Temperature 98.0 F Pulse Rate 68 Respiratory Rate 17 Blood Pressure 99/49 L Pulse Oximetry 95 Oxygen Delivery Me thod Room Air Body Mass Index 19.0 General: AO X 3, no acute distress Resp: CTA bilateral CVS: S1,S2,RRR GI: +BS, NT, no distention Skin: No rash Neuro: motor grossly intact Psych: appropriate affect Discharge Plan Discharge Anticipated Discharge Date/Time: 09/15/20 09:31 Patient Disposition: Xfer SNF Discharge Diagnosis: dizziness Referrals: [facility] [Other] (1. DISCHARGE TO SHORT TERM REHAB AT [facility] , TO BE TRANSPORTED [facility]IA [facility] 2. POST DISCHARGE FROM SHORT TERM REHAB PATIENT TO RESUME HER SERVICES WITH [facility] (NURSING , PHYSICAL THEAPRY AND ?SPEECH) ) Physician,Unknown [Primary Care Provider] - Discharge Medications: New acetaminophen 325 mg Tablet 650 mg PO Q6H PRN (Reason: Pain, Mild (Pain Scale 1-3)) Qty: 30 RF: 0 meclizine 12.5 mg Tablet 6.25 mg PO Q6H PRN (Reason: Vertigo) Qty: 60 RF: 0 magnesium hydroxide [Milk of Magnesia] 400 mg/5 mL Suspension 30 ml PO DAILY PRN (Reason: Constipation) Qty: 200 RF: 0 docusate sodium 100 mg Capsule 100 mg PO BID Qty: 60 RF: 0 Continued flecainide 50 mg tablet 50 mg PO BID Qty: 180 RF: 3 cyanocobalamin (vitamin B-12) [Vitamin B-12] 1,000 mcg Tablet 1,000 mcg PO DAILY RF: 0 ascorbic acid (vitamin C) [Vitamin C] 500 mg Tablet 500 mg PO DAILY RF: 0 ferrous sulfate 325 mg (65 mg iron) Tablet 325 mg PO DAILY RF: 0 cholecalciferol (vitamin D3) [Vitamin D3] 25 mcg (1,000 unit) Tablet 25 mcg PO DAILY RF: 0 timolol 0.5 % Drops 1 drp OPHTHALMIC (EYE) DAILY RF: 0 levetiracetam 250 mg Tablet 250 mg PO BID Qty: 60 RF: 0 simvastatin 10 mg tablet 10 mg PO BEDTIME Qty: 90 RF: 1 metoprolol succinate 25 mg tablet extended release 24 hr 12.5 mg PO DAILY RF: 0 No [facility] warfarin 5 mg tablet 5 mg PO DAILY Qty: 90 RF: 0 warfarin 4 mg tablet 4 mg PO DAILY Qty: 7 RF: 0 Discharge Orders: Discharge Order (Routine); Ordered 09/15/20 Ordered By: Reyes Falcon Diet: other Activity on Discharge: As tolerated Stand Alone Forms: Patient Portal Discharge page Care Plan Goals: Full recovery and return to return home Health Concerns: dizziness, generalized, coumaidn use for afib, and protein C and S deficiency Plan of Treatment: To short term rehab for less than 7 days. Diet: She seems to be tolerating NDD2 solids and nectar thick liquids without difficulty. Pills crushed in puree or liquid form. Restart coumadin today and check INR daily with goal of INR 2 to 3 Assessment: dizziness, needs rehab Discharge Date/Time: 09/15/20 11:30
--- NOTE | 2020-09-14 12:08 | HO.PM.IMPN ---
Subjective Subjective Date of Service: 09/14/20 Interval History: Seen in f/u for dizziness, no dizziness but very weak Review of Systems Gen: no fever Resp: no sob, no cough CV: no chest, no BROWN, no leg edema GI: No n/v, no abd pain Neuro: No confusion Physical Exam Vital Signs: Vital Signs: Last Vital Signs Temp 98.7 F 09/14/20 11:14 Pulse 80 09/14/20 11:14 Resp 18 09/14/20 11:14 BP 118/61 09/14/20 11:14 Pulse Ox 92 09/14/20 11:14 Body Mass Index 19.0 General: AO X 3, no acute distress Resp: CTA bilateral CVS: S1,S2,RRR GI: +BS, NT, no distention Skin: No rash Neuro: motor grossly intact Psych: appropriate affect Objective Data Current Medications Generic Name Dose Route Start Last Admin Trade Name Freq PRN Reason Stop Dose Admin Acetaminophen 650 mg 09/08/20 18:50 Acetaminophen 325 Mg Tablet PO Q6H PRN Pain, Mild (Pain Scale 1-3) Ascorbic Acid 500 mg 09/09/20 09:00 09/14/20 10:16 Ascorbic Acid 500 Mg Tablet PO 500 mg DAILY KASSIDY Administration Cyanocobalamin 1,000 mcg 09/09/20 09:00 09/14/20 10:17 Cyanocobalamin (Vitamin B-12) 1,000 Mcg Tablet PO 1,000 mcg DAILY KASSIDY Administration Docusate Sodium 100 mg 09/12/20 11:45 09/14/20 10:09 Docusate Sodium 100 Mg Capsule PO 100 mg BID KASSIDY Administration Flecainide Acetate 50 mg 09/08/20 21:00 09/14/20 10:16 Flecainide Acetate 50 Mg Tablet PO 50 mg BID KASSIDY Administration Levetiracetam 250 mg 09/08/20 16:09 09/14/20 10:09 Levetiracetam 250 Mg Tablet PO 250 mg BID KASSIDY Administration Magnesium Hydroxide 30 ml 09/12/20 11:45 09/12/20 13:49 Milk Of Magnesia 30 Ml Oral.Susp PO 30 ml DAILY PRN Administration Constipation Meclizine HCl 6.25 mg 09/12/20 13:38 09/14/20 00:13 Meclizine Hcl 12.5 Mg Tablet PO 6.25 mg Q6H PRN Administration Vertigo Metoprolol Succinate 12.5 mg 09/09/20 09:00 09/14/20 10:15 Metoprolol Succinate Er 25 Mg Tab.Er.24h PO 12.5 mg DAILY KASSIDY Administration Protocol Ondansetron HCl 4 mg 09/08/20 18:50 Ondansetron Hcl 4 Mg/2 Ml Vial IVPUSH Q8H PRN Nausea and Vomiting Pharmacy Consult 1 each 09/08/20 15:56 Consult Rx Perform Med Rec MISCELLANE ONCE PRN Consult order Sodium Chloride 3 ml 09/09/20 00:00 09/14/20 10:28 0.9 % Sodium Chloride Flush 3 Ml Syringe IVFLUSH 3 ml QSHIFT KASSIDY Administration Timolol Maleate 1 drop 09/09/20 09:00 09/14/20 10:31 Timolol Maleate 0.5 % Oph Luz Elena 5 Ml Drbtl EYE-BOTH 1 drop DAILY KASSIDY Administration Vitamin D 25 mcg 09/09/20 09:00 09/14/20 10:09 Cholecalciferol (Vitamin D3) 25 Mcg Tablet PO 25 mcg DAILY KASSIDY Administration Labs CBC & Chem 7: 09/09/20 06:02 09/09/20 06:02 Assessment and Plan (1) Vertigo: Status: Acute (2) Bleeding in brain: Status: Acute (3) Protein S deficiency: Problem details: Lifelong anticoagulation requires bridging with Lovenox for all invasive procedures Status: Acute (4) Atrial fibrillation: Status: Acute Assessment and Plan: 85 years old male with PMH of PAF, seizure disorder, CAD, protein S deficiency, HLD among others who presented to the hospital with vertigo and dizziness. Intracranial bleed Small focus of hemorrhage in left frontal per CTA--repeat CT unchnaged Neuro doesn't think this is the cause of dizziness and likely incidental finding and coumadin can be resumed after a week Vertigo--positional vertigo, Meclizine PRN, PT to reassess for rehab Supratherapeutic INR--coumadin was on old AFib Protein S deficiency Restart coumadin today continue metoprolol and flecainide sick sinus syndrome pacemaker in place CAD continue metoprolol and statin Out of bed, ambulate, Dysphagia, she has had MBS before and doesn want another want. Speech saw and recommed chopped diet, crushed pills Patient is now agreable to short term rehab
--- NOTE | 2020-09-14 13:58 | MHC.CM.PN ---
NURSE COAL CHEMIST NOTE ELECTRONIC MEDICAL RECORD REVIEWED - MET WITH PATIENT AT LENGTH SHE IS UNABLE TO REACH ANUY OF HER FAMNOLY SHE DOES NOT HAVE THEIR NUMBER SHE REPORTED HER HCP IS HER Vinay hanna but she does not rember her number i checked with staff nurse, her pcp noni , [facility] and they also do not have any contacts other than patients whom does not answer the phone poornima hardin discussion patient accepted bed offer at [facility] this was informed to them and i requested they go for insurance authorization, this was also informed to the hospitlaist and he will order a rapid covid test 'discharge plan [facility] will need to get a rapid covid test , ordered [facility] proxy and their is [facility] hard cover chart and at the coumadin cl;inic ,
--- NOTE | 2020-09-14 15:04 | PM.PNCARD ---
Subjective Subjective Date of Service: 09/14/20 Interval history: pacemaker interrogation Physical Exam Vital Signs: Last Vital Signs Temp 98.7 F 09/14/20 11:14 Pulse 80 09/14/20 11:14 Resp 18 09/14/20 11:14 BP 118/61 09/14/20 11:14 Pulse Ox 92 09/14/20 11:14 Body Mass Index 19.0 Results Labs and Meds Result diagrams: 09/09/20 06:02 09/09/20 06:02 Progress Note: A&P Assessment and plan (1) History of pacemaker: Problem details: not MRI Compatible 2010 Status: Inactive Assessment and Plan: Medtronic dual chamber pacemaker in place. interrogation at bedside today shows battery 13 mo ( range < 1 mo - 26 mo), A/ V thresholds normal, DDDR mode, low rate 60, No Alerts, No mode switches, / VS 57.6% of time, AP/ VS 42.2% of time, histogram with normal averages, heart rates mostly 60-80s - no changes made. Fall Risk Details Current Medications: Current Medications Generic Name Dose Route Start Last Admin Trade Name Freq PRN Reason Stop Dose Admin Acetaminophen 650 mg 09/08/20 18:50 Acetaminophen 325 Mg Tablet PO Q6H PRN Pain, Mild (Pain Scale 1-3) Ascorbic Acid 500 mg 09/09/20 09:00 09/14/20 10:16 Ascorbic Acid 500 Mg Tablet PO 500 mg DAILY KASSIDY Administration Cyanocobalamin 1,000 mcg 09/09/20 09:00 09/14/20 10:17 Cyanocobalamin (Vitamin B-12) 1,000 Mcg Tablet PO 1,000 mcg DAILY KASSIDY Administration Docusate Sodium 100 mg 09/12/20 11:45 09/14/20 10:09 Docusate Sodium 100 Mg Capsule PO 100 mg BID KASSIDY Administration Flecainide Acetate 50 mg 09/08/20 21:00 09/14/20 10:16 Flecainide Acetate 50 Mg Tablet PO 50 mg BID KASSIDY Administration Levetiracetam 250 mg 09/08/20 16:09 09/14/20 10:09 Levetiracetam 250 Mg Tablet PO 250 mg BID KASSIDY Administration Magnesium Hydroxide 30 ml 09/12/20 11:45 09/12/20 13:49 Milk Of Magnesia 30 Ml Oral.Susp PO 30 ml DAILY PRN Administration Constipation Meclizine HCl 6.25 mg 09/12/20 13:38 09/14/20 00:13 Meclizine Hcl 12.5 Mg Tablet PO 6.25 mg Q6H PRN Administration Vertigo Metoprolol Succinate 12.5 mg 09/09/20 09:00 09/14/20 10:15 Metoprolol Succinate Er 25 Mg Tab.Er.24h PO 12.5 mg DAILY KASSIDY Administration Protocol Ondansetron HCl 4 mg 09/08/20 18:50 Ondansetron Hcl 4 Mg/2 Ml Vial IVPUSH Q8H PRN Nausea and Vomiting Pharmacy Consult 1 each 09/08/20 15:56 Consult Rx Perform Med Rec MISCELLANE ONCE PRN Consult order Sodium Chloride 3 ml 09/09/20 00:00 09/14/20 10:28 0.9 % Sodium Chloride Flush 3 Ml Syringe IVFLUSH 3 ml QSHIFT KASSIDY Administration Timolol Maleate 1 drop 09/09/20 09:00 09/14/20 10:31 Timolol Maleate 0.5 % Oph Luz Elena 5 Ml Drbtl EYE-BOTH 1 drop DAILY KASSIDY Administration Vitamin D 25 mcg 09/09/20 09:00 09/14/20 10:09 Cholecalciferol (Vitamin D3) 25 Mcg Tablet PO 25 mcg DAILY KASSIDY Administration Time Spent With Patient Time: Total time spent is greater than 50% in coordination of care (as documented) at patient's floor/unit and/or counseling patient: Time with patient: less than 15 minutes
--- NOTE | 2020-09-14 15:26 | MHC.CLN ---
F/U PO INTAKE SLIGHTLY IMPROVED 50%AVG DIET RX: REGULAR-SOLAR ENERGY SPECIALIST RECOMMEND GRD WITH NT LIQ SEE REC 4/5 PT RECEPTIVE TO DRINKING ENSURE BID TO INCREASE KCALS SUPPLEMENT PROVIDES 700KCALS, 40G PROTEIN WILL CHANGE DIET TO GRD WITH NT LIQ PER SOLAR ENERGY SPECIALIST REC MONITOR PO INTAKE CLOSELY
[2020-09-15] MEDS: 0.9 % Sodium Chloride Flush 3 ML SYRINGE IVFLUSH ×2 (00:30→10:07)
[2020-09-15 04:00] VITALS: BP 106/57; PULSE 69; RESP 16; TEMP 36.1; O2SAT 97
[2020-09-15 07:34] VITALS: BP 99/49; PULSE 68; RESP 17; TEMP 36.7; O2SAT 95
[2020-09-15] MEDS: Cyanocobalamin (Vitamin B-12) 1,000 MCG TABLET 1000 MCG PO (09:31)
[2020-09-15 09:32] VITALS: BP 107/56; PULSE 82
[2020-09-15] MEDS: Ascorbic Acid 500 MG TABLET PO (09:32)
[2020-09-15] MEDS: Metoprolol Succinate ER 25 MG TAB.ER.24H 12.5 MG PO (09:32)
[2020-09-15] MEDS: Cholecalciferol (Vitamin D3) 25 MCG TABLET PO (09:32)
[2020-09-15] MEDS: levETIRAcetam 250 MG TABLET PO (09:32)
[2020-09-15 09:35] VITALS: BP 107/56; PULSE 82
[2020-09-15] MEDS: Acetaminophen 325 MG TABLET 650 MG PO (09:35)
[2020-09-15] MEDS: Flecainide Acetate 50 MG TABLET PO (09:35)
[2020-09-15 09:39] LABS: COVID-19 Test Negative (Negative)
[2020-09-15] MEDS: timoloL maleate 0.5 % Oph Sol 5 ML DRBTL 1 DROP EYE-BOTH (10:05)
--- NOTE | 2020-09-15 11:40 | PC.NURSE ---
Nurse to nurse given to [facility], no questions from nurse.
--- NOTE | 2020-09-16 14:20 | MHC.CM.PN ---
NURSE SYSTEMS PROJECT MANAGER NOTE LATE ENTRY FROM 09/15/20 4;30 I WAS SUCCESSFUL IN REACHING BY PHONE PATIENTS RAFFI, INFORMED HIM OF THE DISCHARGE AND WHERE TH E PATIENT WENT AND AND I GAVE HIM THE PHONE NUMBER. PATIENTALSO GAVE ME SUDHIR SANTANA PHONE NUMBER [phone] I CALLED HER AND SHE INFORMED ME THAT SHE WAS PATIENTS HCP/POA SHE REPORTED SHE WAS AKSING THE PATIENT FOR AOME ONE TO Cll her patietn reported she did nto know her number but in fact was calling sudhir , i informed her that patient went to [facility] at 11 am by [facility], she informed me that the patient called her to tell her this information , i encouraged her to call the faciltiy and bring in copy of the [facility] proxy and power of attorny telephone call to [facility] i spoke with gracie the social services coordinator and gave her rosio number and informed her that she is the hcp/pow and will in copy to the facility 09/16/20 she thanke me for calling
== END 2020-09-15 11:30 | disposition skilled nursing facility (03) | DRG 65 ==
LOC: HO.ED 15:24 → HO.EDOVER 16:47 → HO.S3 21:57
PROVIDERS: Admitting Provider Student in an Organized Health Care Education/Training Program; Emergency Provider Emergency Medicine; PCP Internal Medicine; Visit Provider Internal Medicine
DX: I61.2 Nontraumatic intracerebral hemorrhage in hemisphere, unspecified (principal); D68.59 Other primary thrombophilia; H81.10 Benign paroxysmal vertigo, unspecified ear; I25.10 Atherosclerotic heart disease of native coronary artery without angina pectoris; I49.5 Sick sinus syndrome; I48.0 Paroxysmal atrial fibrillation; Z20.822 Contact with and (suspected) exposure to COVID-19; Z95.0 Presence of cardiac pacemaker; Z88.0 Allergy status to penicillin; Z88.5 Allergy status to narcotic agent; Z79.01 Long term (current) use of anticoagulants; Z79.899 Other long term (current) drug therapy
CPT/HCPCS: 0241U; 36415; 70450; 70496; 70498; 72125; 80048; 81003; 83880; 84484; 85025; 85610; 86850; 86900; 87635; 92610; 93005; 96374; 97162; 99284; 99285; J2765; J3430; P9017; Q9967

== ENCOUNTER → 2020-10-04 14:20 | Outpatient (BNVA) | payer OTHER, SELFPAY | PROVIDERS: PCP Internal Medicine; Visit Provider Internal Medicine | DX: Z13.89 Encounter for screening for other disorder (principal) | CPT/HCPCS: Q3014 ==

== ENCOUNTER → 2020-10-08 12:13 | Outpatient (BNVA) | payer OTHER, SELFPAY | PROVIDERS: PCP Internal Medicine; Visit Provider Internal Medicine ==

== ENCOUNTER → 2020-10-12 13:07 | Outpatient (BNVA) | payer OTHER, SELFPAY | PROVIDERS: PCP Internal Medicine; Visit Provider Internal Medicine ==

== ENCOUNTER → 2020-10-20 12:03 | Outpatient (BNVA) | payer OTHER, SELFPAY | PROVIDERS: PCP Internal Medicine; Visit Provider Internal Medicine | DX: I48.20 Chronic atrial fibrillation, unspecified (principal); I26.99 Other pulmonary embolism without acute cor pulmonale | CPT/HCPCS: Q3014 ==

== ENCOUNTER 2020-10-21 11:13 | Outpatient (REF) | payer OTHER, SELFPAY ==
[2020-10-21 12:29] LABS: MANUAL DIFF FLAG NO
[2020-10-21 12:33] LABS: Eosinophils Absolute Auto 0.1 X10*3/uL (0.0-0.4); Eosinophils Percent Auto 2.5 % (0-4); Hematocrit 38.8 % (37-47); Hemoglobin 12.6 g/dl (12.0-16.0); Imm Gran Abs Auto 0.01 X10*3/uL (0.00-0.03); Imm Gran Pct Auto 0.2 % (0.0-0.4); Lymphocytes Absolute Auto 1.1 X10*3/uL (1.2-4.9); Lymphocytes Percent Auto 27.9 % (20-40); Mean Corpuscular HGB Conc 32.5 g/dl (31.0-35.0); Mean Corpuscular Hemoglobin 29.5 pg (27.0-33.0); Mean Corpuscular Volume 90.9 fL (80-98); Mean Platelet Volume 10.5 fL (9.4-12.3); Monocytes Absolute Auto 0.4 X10*3/uL (0.1-1.2); Monocytes Percent Auto 8.6 % (2-11); Neutrophils Absolute Auto 2.4 X10*3/uL (2.0-8.3); Neutrophils Percent Auto 59.8 % (45-73); Platelet Count 145 X10*3/uL (160-400); Red Blood Count 4.27 X10*6/uL (4.20-5.50); Red Cell Distribution Width 14.6 % (11.0-16.0); White Blood Count 4.1 X10*3/uL (4.8-10.8)
[2020-10-21 12:53] LABS: Alanine Aminotransferase 15 U/L (0-31); Albumin Level 3.7 g/dL (3.5-5.0); Alkaline Phosphatase 74 U/L (39-117); Anion Gap 10 (12-20); Aspartate Amino Transferase 17 U/L (5-31); Bilirubin Total 0.6 mg/dL (0.0-1.0); Blood Urea Nitrogen 12 mg/dL (9-16); Calcium 9.2 mg/dL (8.4-10.2); Carbon Dioxide 29 mmol/L (22-29); Chloride 105 mmol/L (96-108); Cholesterol 152 mg/dL; Estimated Glomerular Filt Rate > 60; Glucose Random 83 mg/dL (60-115); HDL Cholesterol 57 mg/dL; LDL Cholesterol Calculated 76 mg/dl; Magnesium 1.9 mg/dL (1.6-2.6); Phosphorus 3.5 mg/dL (2.7-4.5); Potassium 4.1 mmol/L (3.3-5.1); Sodium 140 mmol/L (135-145); Total Protein 6.2 g/dL (6.5-8.0); Triglycerides 96 mg/dL
[2020-10-21 13:11] LABS: Glucose Urine UA NEG (NEG); Leukocyte Esterase Urine NEG (NEG); Nitrite Urine NEG (NEG); Urine Blood NEG (NEG); Urine Ketones NEG (NEG); Urine Protein NEG (NEG-TRACE)
[2020-10-21 13:14] LABS: Appearance Urine CLEAR; Color Urine YELLOW
[2020-10-21 13:17] LABS: Free T4 (Free Thyroxine) 0.98 ng/dL (0.71-1.85)
[2020-10-21 13:22] LABS: Vitamin B12 1237 pg/mL (200-900)
[2020-10-21 13:55] LABS: Amorphous Sediment Urine 1+ /LPF; RBC Urine 0 /HPF (0); WBC Urine 0-2 /HPF (0-4)
== END 2020-10-21 11:14 | disposition home or self-care (01) ==
LOC: HO.LAB 11:13
PROVIDERS: PCP Internal Medicine; Visit Provider Internal Medicine
DX: R42 Dizziness and giddiness (principal); E78.00 Pure hypercholesterolemia, unspecified
CPT/HCPCS: 36415; 80053; 80061; 81001; 82607; 82746; 83735; 84100; 84439; 84443; 85025

== ENCOUNTER → 2020-10-27 13:39 | Outpatient (BNVA) | payer OTHER, SELFPAY | PROVIDERS: PCP Internal Medicine; Visit Provider Internal Medicine ==

== ENCOUNTER → 2020-10-28 11:07 | Outpatient (BNVA) | payer OTHER, SELFPAY | PROVIDERS: PCP Internal Medicine; Referring Provider Internal Medicine; Visit Provider Internal Medicine ==

== ENCOUNTER → 2020-11-03 13:11 | Outpatient (BNVA) | payer OTHER, SELFPAY | PROVIDERS: PCP Internal Medicine; Visit Provider Internal Medicine | DX: Z13.89 Encounter for screening for other disorder (principal) | CPT/HCPCS: Q3014 ==

== ENCOUNTER → 2020-11-10 11:24 | Outpatient (BNVA) | payer OTHER, SELFPAY | PROVIDERS: PCP Internal Medicine; Visit Provider Internal Medicine | DX: Z13.89 Encounter for screening for other disorder (principal) | CPT/HCPCS: Q3014 ==

== ENCOUNTER → 2020-11-15 12:06 | Outpatient (BNVA) | payer OTHER, SELFPAY | PROVIDERS: PCP Internal Medicine; Visit Provider Internal Medicine | DX: I48.0 Paroxysmal atrial fibrillation (principal); Z51.81 Encounter for therapeutic drug level monitoring; Z79.01 Long term (current) use of anticoagulants | CPT/HCPCS: Q3014 ==

== ENCOUNTER 2020-11-23 06:39 | Outpatient (REF) | payer OTHER, SELFPAY ==
[2020-11-23 11:16] LABS: INTERNATIONAL NORM RATIO 2.9 (0.9-1.1); Prothrombin Time 34.9 SEC (10.8-13.0)
== END 2020-11-23 06:40 | disposition home or self-care (01) ==
LOC: HO.LHD 06:39
PROVIDERS: Visit Provider Internal Medicine
DX: I48.0 Paroxysmal atrial fibrillation (principal); Z51.81 Encounter for therapeutic drug level monitoring; Z79.01 Long term (current) use of anticoagulants
CPT/HCPCS: 36415; 85610

== ENCOUNTER 2020-11-30 06:47 | Outpatient (REF) | payer OTHER, SELFPAY ==
[2020-11-30 10:57] LABS: INTERNATIONAL NORM RATIO 3.2 (0.9-1.1)
== END 2020-11-30 06:48 | disposition home or self-care (01) ==
LOC: HO.LHD 06:47
PROVIDERS: Visit Provider Internal Medicine
DX: I26.99 Other pulmonary embolism without acute cor pulmonale (principal); I48.20 Chronic atrial fibrillation, unspecified; Z51.81 Encounter for therapeutic drug level monitoring; Z79.01 Long term (current) use of anticoagulants
CPT/HCPCS: 36415; 85610; 99211

== ENCOUNTER 2020-12-07 01:00 | Outpatient (REF) | payer OTHER, SELFPAY ==
[2020-12-07 10:55] LABS: INTERNATIONAL NORM RATIO 3.3 (0.9-1.1); Prothrombin Time 39.7 SEC (10.8-13.0)
== END 2020-12-07 01:01 | disposition home or self-care (01) ==
LOC: HO.LHD 01:00
PROVIDERS: Visit Provider Internal Medicine
DX: I48.0 Paroxysmal atrial fibrillation (principal)
CPT/HCPCS: 36415; 85610

== ENCOUNTER → 2020-12-09 15:28 | Outpatient (BNVA) | payer OTHER, SELFPAY | PROVIDERS: PCP Internal Medicine; Visit Provider Internal Medicine | DX: I48.20 Chronic atrial fibrillation, unspecified (principal); I26.99 Other pulmonary embolism without acute cor pulmonale; Z51.81 Encounter for therapeutic drug level monitoring; Z79.01 Long term (current) use of anticoagulants | CPT/HCPCS: Q3014 ==

== ENCOUNTER 2020-12-14 00:11 | Outpatient (REF) | payer OTHER, SELFPAY ==
[2020-12-14 10:36] LABS: INTERNATIONAL NORM RATIO 2.6 (0.9-1.1); Prothrombin Time 30.6 SEC (9.9-13.0)
== END 2020-12-14 00:12 | disposition home or self-care (01) ==
LOC: HO.LHD 00:11
PROVIDERS: Visit Provider Internal Medicine
DX: I48.0 Paroxysmal atrial fibrillation (principal)
CPT/HCPCS: 36415; 85610

== ENCOUNTER → 2020-12-15 09:53 | Outpatient (BNVA) | payer OTHER, SELFPAY | PROVIDERS: Visit Provider Nurse Practitioner Family ==

== ENCOUNTER → 2020-12-16 16:32 | Outpatient (BNVA) | payer OTHER, SELFPAY | PROVIDERS: Visit Provider Internal Medicine | DX: I48.20 Chronic atrial fibrillation, unspecified (principal) | CPT/HCPCS: Q3014 ==

== ENCOUNTER 2020-12-21 | Outpatient (REF) | payer OTHER, SELFPAY ==
[2020-12-21 09:47] LABS: INTERNATIONAL NORM RATIO 3.1 (0.9-1.1); Prothrombin Time 36.3 SEC (9.9-13.0)
== END 2020-12-21 00:01 | disposition home or self-care (01) ==
LOC: HO.HSHHMC
PROVIDERS: Visit Provider Internal Medicine
DX: I48.91 Unspecified atrial fibrillation (principal)
CPT/HCPCS: 36415; 85610

== ENCOUNTER 2020-12-28 | Outpatient (REF) | payer OTHER, SELFPAY ==
[2020-12-28 10:24] LABS: INTERNATIONAL NORM RATIO 3.5 (0.9-1.1); Prothrombin Time 40.6 SEC (9.9-13.0)
== END 2020-12-28 00:01 | disposition home or self-care (01) ==
LOC: HO.LHD
PROVIDERS: Visit Provider Internal Medicine
DX: I48.20 Chronic atrial fibrillation, unspecified (principal); I26.99 Other pulmonary embolism without acute cor pulmonale; Z51.81 Encounter for therapeutic drug level monitoring; Z79.01 Long term (current) use of anticoagulants
CPT/HCPCS: 36415; 85610; Q3014

== ENCOUNTER 2021-01-04 07:18 | Outpatient (REF) | payer OTHER, SELFPAY ==
[2021-01-04 09:47] LABS: INTERNATIONAL NORM RATIO 2.2 (0.9-1.1); Prothrombin Time 24.9 SEC (9.9-13.0)
== END 2021-01-04 07:19 | disposition home or self-care (01) ==
LOC: HO.LHD 07:18
PROVIDERS: Visit Provider Internal Medicine
DX: I48.0 Paroxysmal atrial fibrillation (principal); Z79.01 Long term (current) use of anticoagulants
CPT/HCPCS: 36415; 85610

== ENCOUNTER 2021-01-11 07:26 | Outpatient (REF) | payer OTHER, SELFPAY ==
[2021-01-11 10:46] LABS: INTERNATIONAL NORM RATIO 2.7 (0.9-1.1); Prothrombin Time 31.8 SEC (9.9-13.0)
== END 2021-01-11 07:27 | disposition home or self-care (01) ==
LOC: HO.LHD 07:26
PROVIDERS: Visit Provider Internal Medicine
DX: I48.0 Paroxysmal atrial fibrillation (principal); Z51.81 Encounter for therapeutic drug level monitoring; Z79.01 Long term (current) use of anticoagulants
CPT/HCPCS: 36415; 85610

== ENCOUNTER 2021-01-15 19:50 | Emergency (ER) | payer OTHER, SELFPAY ==
[2021-01-15 20:02] VITALS: BP 135/76; PULSE 80; RESP 16; TEMP 37.1; O2SAT 96; BMI 19.7
--- NOTE | 2021-01-15 20:42 | ED.DIZZY ---
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 was on Keppra tapering off to the last dose today been feeling dizzy and nauseated for last 2 days states inside the house drinking enough fluids feel weak exhausted too lethargic today no history of seizure no chest pain or palpitation no vomiting no diarrhea Related Data Home Medications Medication Instructions Recorded Confirmed ascorbic acid (vitamin C) 500 mg 500 mg PO DAILY 06/02/20 12/28/20 tablet (Vitamin C) cholecalciferol (vitamin D3) 25 25 mcg PO DAILY 06/02/20 12/28/20 mcg (1,000 unit) tablet (Vitamin D3) cyanocobalamin (vitamin B-12) 1,000 mcg PO DAILY 06/02/20 12/28/20 1,000 mcg tablet (Vitamin B-12) ferrous sulfate 325 mg (65 mg 325 mg PO DAILY 06/02/20 12/28/20 iron) tablet timolol 0.5 % eye drops 1 drp OPHTHALMIC (EYE) DAILY 06/03/20 12/28/20 metoprolol succinate 25 mg 12.5 mg PO DAILY tab 07/08/20 12/28/20 tablet,extended release 24 hr betamethasone dipropionate 0.05 % TOPICAL 11/15/20 12/28/20 lotion lamotrigine 25 mg tablet 25 mg PO BID 11/15/20 12/28/20 timolol maleate 0.5 % eye drops 1 drp OPHTHALMIC (EYE) QAM 12/09/20 12/28/20 clindamycin HCl 300 mg capsule 300 mg PO TID 12/28/20 12/28/20 Previous Rx's Medication Instructions Recorded flecainide 50 mg tablet 50 mg PO BID #180 tab 05/16/20 levetiracetam 250 mg tablet 250 mg PO BID #60 tab 06/05/20 warfarin 4 mg tablet 4 mg PO DAILY #7 tab 10/08/20 warfarin 5 mg tablet 5 mg PO DAILY #90 tab 10/08/20 lidocaine 5 % topical patch 2 patch TOPICAL DAILY 90 Days #180 11/19/20 ea simvastatin 10 mg tablet 10 mg PO BEDTIME #90 tab 12/25/20 Allergies Allergy/AdvReac Type Severity Reaction Status Date / Time codeine [Codeine] Allergy Unknown VOMITING Verified 01/11/21 11:42 doxycycline [Doxycycline] Allergy Unknown DIFF Verified 01/11/21 11:42 BREATHING Penicillins Allergy Unknown DIFF Verified 01/11/21 11:42 BREATHING pepper (genus Capsicum) Allergy Unknown Unknown Verified 01/11/21 11:42 tetracycline [Tetracycline] Allergy Unknown DIFF Verified 01/11/21 11:42 BREATHING oxycodone [From PERCOCET] AdvReac Intermediate VOMITING Verified 01/11/21 11:42 epinephrine Allergy Unknown Unknown Uncoded 10/28/20 11:24 From Novocain Allergy Unknown LOWERED BP Uncoded 10/28/20 11:24 - OK IF IT DOES NOT HAVE EPINEPHRINE IN IT toro for MIBI Allergy Unknown headache Uncoded 10/28/20 11:24 most antibiotics Allergy Unknown Unknown Uncoded 10/28/20 11:24 Pt states she CAN take Emycin Allergy Unknown Unknown Uncoded 10/28/20 11:24 Review of Systems Review of Systems: Yes all other systems are reviewed and are negative PMFSH Past Medical History Medical History Arterial hypotension Coronary artery disease Glaucoma History of pulmonary embolism Hypercholesterolemia Hypertension Irritable bowel syndrome Nodule of neck Pacemaker PAF (paroxysmal atrial fibrillation) Peripheral neuropathy Post concussive syndrome Protein S deficiency Sick sinus syndrome Stress incontinence Surgical History H/O breast surgery History of appendectomy History of D&C History of eye surgery History of hemorrhoidectomy History of hip replacement History of pacemaker History of tonsillectomy and adenoidectomy History of total abdominal hysterectomy and bilateral salpingo-oophorectomy Presence of IVC filter Family History Family History Father Heart disease Stroke Mother Heart disease Sister Breast cancer Brother Heart disease Sister Breast cancer Social History Social History Household Members: Spouse Housing: House Do you presently have visiting nurse or other home services: Yes (once every other week) Alcohol intake: never Advance Directives: No Advance Directives Information Provided: No service: No Current occupational status: retired Physical Exam Vital Signs: Vital Signs: Last Vital Signs Temp 98.7 F 01/15/21 20:02 Pulse 83 01/15/21 23:39 Resp 12 01/15/21 21:33 BP 144/65 H 01/15/21 23:39 Pulse Ox 98 01/15/21 21:33 Body Mass Index 19.7 Appearance: Alert. Oriented X3. No acute distress. Eyes: PERRLA, No Nystagmus ENT: Pharynx normal. Oral Mucosa dry Neck: Normal inspection. Neck supple. CVS: Normal heart rate and rhythm. Pulses normal. Respiratory: No respiratory distress. Equal air entry bilateral, no wheezing/rales/rhonchi Abdomen: Soft and nontender. Bowel sounds are present, no mass palpable, no CVA tenderness Skin: Skin warm and dry. Normal skin color. Normal skin turgor. Extremities: No lower extremity edema. No calf tenderness Neuro: Oriented X 3. No motor deficit. No sensory deficit.No cerebellar signs , cranial nerves II-XII intact MDM - Dizziness MDM Narrative Medical decision making narrative: Patient feeling much better after IV fluids had 2 loose bowels in the ER orthostatic blood vitals are stable we will discharge patient home likely heat exhaustion patient able to go home tonight will discharge home in the morning when family member can take her home Lab Data Attestation: I reviewed the patient's lab results. Result diagrams: 01/15/21 21:30 01/15/21 21:30 Labs: Lab Results 01/15/21 01/15/21 Range/Units 21:30 21:30 WBC 6.6 (4.8-10.8) X10*3/uL RBC 4.22 (4.20-5.50) X10*6/uL Hgb 12.6 (12.0-16.0) g/dl Hct 37.2 (37-47) % MCV 88.2 (80-98) fL MCH 29.9 (27.0-33.0) pg MCHC 33.9 (31.0-35.0) g/dl RDW 15.2 (11.0-16.0) % Plt Count TNP MPV 10.6 (9.4-12.3) fL Immature Gran % (Auto) 0.3 (0.0-0.4) % Neut % (Auto) 90.0 H (45-73) % Lymph % (Auto) 3.8 L (20-40) % [place] % (Auto) 5.6 (2-11) % Eos % (Auto) 0.0 (0-4) % Baso % (Auto) 0.3 (0-2) % Lymph # (Auto) 0.3 L (1.2-4.9) X10*3/uL [place] # (Auto) 0.4 (0.1-1.2) X10*3/uL Eos # (Auto) 0.0 (0.0-0.4) X10*3/uL Baso # (Auto) 0.0 (0.0-0.2) X10*3/uL Abs Immat Gran (auto) 0.02 (0.00-0.03) X10*3/uL Absolute Neuts (auto) 6.0 (2.0-8.3) X10*3/uL Absolute Nucleated RBC 0.000 (0.0-0.012) X10*3/uL Nucleated RBC % (auto) 0.0 (0.0-0.2) /100WBC Smear Tech's Comments VERIFIED Sodium 136 (135-145) mmol/L Potassium 4.0 (3.3-5.1) mmol/L Chloride 104 (96-108) mmol/L Carbon Dioxide 23 (22-29) mmol/L Anion Gap 13 (12-20) BUN 12 (9-16) mg/dL Creatinine 0.73 (0.5-1.4) mg/dL Estim Creat Clear Calc 39.7 Estimated GFR > 60 Random Glucose 106 (60-115) mg/dL Calcium 8.6 D (8.4-10.2) mg/dL Total Bilirubin 0.7 (0.0-1.0) mg/dL AST 17 (5-31) U/L ALT 10 (0-31) U/L Alkaline Phosphatase 62 (39-117) U/L Total Protein 5.9 L (6.5-8.0) g/dL Albumin 3.6 (3.5-5.0) g/dL ECG Data Attestation: I personally reviewed and interpreted this ECG as follows: Interpretation: Normal sinus rhythm heart rate 78 beats per minute first-degree AV block poor progression of R-waves no acute ST T wave changes no acute change from the previous EKGs Discharge Plan Discharge Clinical Impression: Weakness Heat exhaustion Qualifiers: Encounter type: initial encounter Qualified Code(s): T67.5XXA - Heat exhaustion, unspecified, initial encounter Patient Disposition: Home, Self-Care Instructions: Heat Exhaustion (ED) Additional Instructions: Drink plenty of fluids stay in cool shaded airy area Follow-up with PCP if not better Prescriptions: No Action flecainide 50 mg tablet 50 mg PO BID Qty: 180 RF: 3 lidocaine 5 % adhesive patch,medicated 2 patch topical DAILY 90 Days Qty: 180 RF: 0 simvastatin 10 mg tablet 10 mg PO BEDTIME Qty: 90 RF: 3 cyanocobalamin (vitamin B-12) [Vitamin B-12] 1,000 mcg Tablet 1,000 mcg PO DAILY RF: 0 ascorbic acid (vitamin C) [Vitamin C] 500 mg Tablet 500 mg PO DAILY RF: 0 ferrous sulfate 325 mg (65 mg iron) Tablet 325 mg PO DAILY RF: 0 cholecalciferol (vitamin D3) [Vitamin D3] 25 mcg (1,000 unit) Tablet 25 mcg PO DAILY RF: 0 timolol 0.5 % Drops 1 drp OPHTHALMIC (EYE) DAILY RF: 0 levetiracetam 250 mg Tablet 250 mg PO BID Qty: 60 RF: 0 metoprolol succinate 25 mg tablet extended release 24 hr 12.5 mg PO DAILY RF: 0 clindamycin HCl 300 mg capsule 300 mg PO TID RF: 0 warfarin 5 mg tablet 5 mg PO DAILY Qty: 90 RF: 0 warfarin 4 mg tablet 4 mg PO DAILY Qty: 7 RF: 0 betamethasone dipropionate 0.05 % lotion topical RF: 0 lamotrigine 25 mg tablet 25 mg PO BID RF: 0 timolol maleate 0.5 % drops 1 drp ophthalmic (eye) QAM RF: 0
--- NOTE | 2021-01-15 20:53 | ECG_ITS ---
Test Reason : WEAKNESS Blood Pressure : / mmHG Vent. 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
[2021-01-15 21:33] VITALS: BP 127/67; PULSE 71; RESP 12; O2SAT 98
[2021-01-15 21:42] LABS: Basophils Percent Auto 0.3 % (0-2); Hematocrit 37.2 % (37-47); Hemoglobin 12.6 g/dl (12.0-16.0); Imm Gran Abs Auto 0.02 X10*3/uL (0.00-0.03); Imm Gran Pct Auto 0.3 % (0.0-0.4); Lymphocytes Absolute Auto 0.3 X10*3/uL (1.2-4.9); Lymphocytes Percent Auto 3.8 % (20-40); MANUAL DIFF FLAG SCAN; Mean Corpuscular HGB Conc 33.9 g/dl (31.0-35.0); Mean Corpuscular Hemoglobin 29.9 pg (27.0-33.0); Mean Corpuscular Volume 88.2 fL (80-98); Mean Platelet Volume 10.6 fL (9.4-12.3); Monocytes Absolute Auto 0.4 X10*3/uL (0.1-1.2); Monocytes Percent Auto 5.6 % (2-11); PLT CLUMP 1; Red Blood Count 4.22 X10*6/uL (4.20-5.50); Red Cell Distribution Width 15.2 % (11.0-16.0); SCAN SMEAR FLAG 1; White Blood Count 6.6 X10*3/uL (4.8-10.8)
[2021-01-15] MEDS: 0.9 % Sodium Chloride 1,000 ML 999 ML IVCONT (21:47)
[2021-01-15 22:05] LABS: Alanine Aminotransferase 10 U/L (0-31); Albumin Level 3.6 g/dL (3.5-5.0); Alkaline Phosphatase 62 U/L (39-117); Anion Gap 13 (12-20); Aspartate Amino Transferase 17 U/L (5-31); Bilirubin Total 0.7 mg/dL (0.0-1.0); Blood Urea Nitrogen 12 mg/dL (9-16); Calcium 8.6 mg/dL (8.4-10.2); Carbon Dioxide 23 mmol/L (22-29); Chloride 104 mmol/L (96-108); Creatinine Clr Calc Pharmacy 39.7; Estimated Glomerular Filt Rate > 60; Glucose Random 106 mg/dL (60-115); Sodium 136 mmol/L (135-145); Total Protein 5.9 g/dL (6.5-8.0)
[2021-01-15 22:23] LABS: SLIDE REVIEW VERIFIED
[2021-01-15 23:36] VITALS: BP 140/67; PULSE 72
[2021-01-15 23:37] VITALS: BP 146/68; PULSE 74
[2021-01-15 23:39] VITALS: BP 144/65; PULSE 83
--- NOTE | 2021-01-16 01:55 | PC.NURSE ---
PT AMBULATED TO THE RESTROOM W/MINIMAL ASSISTANCE. DENIES DIZZINESS BUT STATES SHE FELT LIGHT HEADED. PT HAD 1/2 OF A SANDWICH W/O INCIDENT AND IS RESTING COMFORTABLY AT THIS TIME. PT STATES SHE WILL HAVE SOMEONE WHO IS AVAILABLE TO PICK HER UP AT 8AM
[2021-01-16 07:33] VITALS: BP 125/57; PULSE 70; RESP 16; TEMP 36.8; O2SAT 97
--- NOTE | 2021-01-16 07:39 | PC.NURSE ---
pt c/o diarrhea and is requesting med for such. md aware.
--- NOTE | 2021-01-16 07:52 | PC.NURSE ---
pt's nephew, michael ontiveros ([phone]) called [facility] for an update on his aunt and was updated. nephew to return call to this rn on update on how pt will be transferred home.
[2021-01-16] MEDS: Loperamide HCl 2 MG CAPSULE PO (07:59)
--- NOTE | 2021-01-16 08:09 | PC.NURSE ---
janae (pt's clinical outcomes manager - [phone]) called [facility] stating that pt is unable to go home and take care of herself. she also stated that pt's was just d/c'd home from rehab as well. aware.
== END 2021-01-16 09:23 | disposition home or self-care (01) ==
PROVIDERS: Emergency Provider Internal Medicine
DX: R53.1 Weakness (principal); T67.5XXA Heat exhaustion, unspecified, initial encounter; I10 Essential (primary) hypertension; I48.0 Paroxysmal atrial fibrillation; Z86.73 Personal history of transient ischemic attack (TIA), and cerebral infarction without residual deficits; Z79.01 Long term (current) use of anticoagulants
CPT/HCPCS: 36415; 80053; 85025; 93005; 96360; 96361; 99284

== ENCOUNTER 2021-01-18 06:54 | Outpatient (REF) | payer OTHER, SELFPAY ==
[2021-01-18 09:19] LABS: Prothrombin Time 23.2 SEC (9.9-13.0)
[2021-01-18 19:14] LABS: Leukocytes Stool Qualitative NEGATIVE (NEGATIVE)
[2021-01-19 11:02] LABS: CDiff Gene PCR POSITIVE (Negative)
[2021-01-19 11:44] LABS: CDIFF Internal ctrl Dots and bkg OK (V); CDiff Toxin Negative (Negative)
== END 2021-01-18 06:55 | disposition home or self-care (01) ==
LOC: HO.LHD 06:54
PROVIDERS: Visit Provider Internal Medicine
DX: I26.99 Other pulmonary embolism without acute cor pulmonale (principal); I48.20 Chronic atrial fibrillation, unspecified; R19.7 Diarrhea, unspecified; Z51.81 Encounter for therapeutic drug level monitoring; Z79.01 Long term (current) use of anticoagulants
CPT/HCPCS: 36415; 85610; 87045; 87046; 87324; 87493; 89055

== ENCOUNTER → 2021-01-19 15:56 | Outpatient (BNVA) | payer OTHER, SELFPAY | PROVIDERS: PCP Internal Medicine; Visit Provider Internal Medicine | DX: I48.20 Chronic atrial fibrillation, unspecified (principal) | CPT/HCPCS: Q3014 ==

== ENCOUNTER 2021-01-25 07:01 | Outpatient (REF) | payer OTHER, SELFPAY ==
[2021-01-25 12:02] LABS: INTERNATIONAL NORM RATIO 1.5 (0.9-1.1); Prothrombin Time 17.7 SEC (9.9-13.0)
== END 2021-01-25 07:02 | disposition home or self-care (01) ==
LOC: HO.LHD 07:01
PROVIDERS: Visit Provider Internal Medicine
DX: I48.20 Chronic atrial fibrillation, unspecified (principal); I26.99 Other pulmonary embolism without acute cor pulmonale; Z51.81 Encounter for therapeutic drug level monitoring; Z79.01 Long term (current) use of anticoagulants
CPT/HCPCS: 36415; 85610; Q3014

== ENCOUNTER 2021-02-11 11:51 | Outpatient (REF) | payer OTHER, SELFPAY ==
[2021-02-11 13:05] LABS: CDiff Gene PCR POSITIVE (Negative)
[2021-02-11 14:51] LABS: CDIFF Internal ctrl Dots and bkg OK (V)
== END 2021-02-11 11:52 | disposition home or self-care (01) ==
LOC: HO.LNP 11:51
PROVIDERS: Visit Provider Internal Medicine
DX: A04.72 Enterocolitis due to Clostridium difficile, not specified as recurrent (principal)
CPT/HCPCS: 87324; 87493

== ENCOUNTER 2021-02-17 12:12 | Emergency (ER) | payer OTHER, SELFPAY ==
[2021-02-17] VITALS (8 sets, daily range): BP systolic 105–158; BP diastolic 62–79; PULSE 70–98; RESP 16; TEMP 36.4–36.6; O2SAT 94–100; BMI 18.7
--- NOTE | 2021-02-17 13:09 | ECG_ITS ---
Test Reason : GI BLEED Blood Pressure : / mmHG Vent. 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
--- NOTE | 2021-02-17 13:38 | ED_ITS ---
HPI - General Adult General Chief complaint: General Medical Stated complaint: RECTAL BLEED Time Seen by Provider: 02/17/21 12:57 Source: patient Mode of arrival: ambulatory Limitations: no limitations History of Present Illness HPI narrative: 85-year-old female with a past medical history of AFib on Eliquis, coronary artery disease, glaucoma, high cholesterol, hypertension, IBS, peripheral neuropathy here with complaints of rectal bleeding and diarrhea. Of note the patient was diagnosed on January with C diff colitis. She completed a 10 day course of vancomycin. Patient after completion of antibiotics had some improvement of symptoms. However 3-4 days later she started to developed diarrhea again. She has had intermittent diarrhea with blood streaks stools. However for the last 6-7 days she has had rectal bleeding with clots. Per granddaughter patient has about 3 episodes per day. Yesterday had only one episode, today from 4am-5am multiple episodes. Patient does report some lower abdominal cramping. She denies any fevers, chills, nausea, vomiting. She tells me she was seen today by her primary care doctor was referred in for emergency the department for further evaluation. She was retested for C diff after completion of the antibiotic and continue to test positive. It was recommeded she start dificid but per family they have been for several days for this to become available from the pharmacy and the patient is not currently on any medications. She has been feeling weak over the last few days. She does live alone.. She has had a 5lb weight loss. Related Data Home Medications Medication Instructions Recorded Confirmed timolol maleate 0.5 % eye drops 1 drp OPHTHALMIC (EYE) QAM 12/09/20 02/17/21 metoprolol succinate 25 mg 1 tab PO DAILY 02/17/21 02/17/21 tablet,extended release 24 hr Previous Rx's Medication Instructions Recorded flecainide 50 mg tablet 50 mg PO BID #180 tab 05/16/20 simvastatin 10 mg tablet 10 mg PO BEDTIME #90 tab 12/25/20 apixaban 2.5 mg tablet (Eliquis) 2.5 mg PO BID #60 tab 01/26/21 vancomycin 125 mg capsule 125 mg PO QID 10 Days #40 cap 02/17/21 Allergies Allergy/AdvReac Type Severity Reaction Status Date / Time codeine [Codeine] Allergy Unknown VOMITING Verified 02/17/21 11:08 doxycycline [Doxycycline] Allergy Unknown DIFF Verified 02/17/21 11:08 BREATHING Penicillins Allergy Unknown DIFF Verified 02/17/21 11:08 BREATHING pepper (genus Capsicum) Allergy Unknown Unknown Verified 02/17/21 11:08 tetracycline [Tetracycline] Allergy Unknown DIFF Verified 02/17/21 11:08 BREATHING oxycodone [From PERCOCET] AdvReac Intermediate VOMITING Verified 02/17/21 11:08 epinephrine Allergy Unknown Unknown Uncoded 01/19/21 11:12 From Novocain Allergy Unknown LOWERED BP Uncoded 01/19/21 11:12 - OK IF IT DOES NOT HAVE EPINEPHRINE IN IT toro for MIBI Allergy Unknown headache Uncoded 01/19/21 11:12 most antibiotics Allergy Unknown Unknown Uncoded 01/19/21 11:12 Pt states she CAN take Emycin Allergy Unknown Unknown Uncoded 01/19/21 11:12 Review of Systems Review of Systems: Yes all other systems are reviewed and are negative Constitutional: Constitutional: Reports no additional constitutional comp laints, Denies body ache(s), Denies chills, Denies fever(s), Denies headache(s) and Reports weakness Eyes: Eyes: Reports no additional eye complaints and Denies change in vision ENT: Reports system reviewed and no additional complaints, except as documented, Denies dizziness, Denies headache(s), Denies nasal congestion, Denies nasal discharge and Denies neck pain Cardiovascular: Cardiovascular: Reports no additional cardiovascular complaints, Denies chest pain, Denies leg edema and Denies dyspnea Respiratory: Respiratory: Reports no additional respiratory complaints, Denies cough and Denies dyspnea Gastrointestinal: Gastrointestinal: Reports no additional gastrointestinal complaints, Reports abdominal pain, Reports hematochezia, Reports diarrhea, Denies nausea and Denies vomiting Genitourinary: Genitourinary: Reports no additional female genitourinary complaints and Denies urinary incontinence Musculoskeletal: Musculoskeletal: Reports no additional musculoskeletal complaints, Denies back pain, Denies arthralgias, Denies joint swelling, Denies neck pain, Denies numbness and Denies tingling Integumentary/Breasts: Skin/Breast: Reports system reviewed and no additional complaints, except as docu and Denies rash Neurologic: Reports system reviewed and no additional complaints, except as documented, Denies Abnormal speech present, Denies dizziness, Denies headache(s), Denies numbness, Denies tingling and Reports weakness PMFSH Past Medical History Attestation statement: The following information was validated with the patient. Source: old records reviewed and nursing notes reviewed Medical History Arterial hypotension C. difficile colitis Coronary artery disease Glaucoma History of pulmonary embolism Hypercholesterolemia Hypertension Irritable bowel syndrome Nodule of neck Pacemaker PAF (paroxysmal atrial fibrillation) Peripheral neuropathy Post concussive syndrome Protein S deficiency Sick sinus syndrome Stress incontinence Surgical History H/O breast surgery History of appendectomy History of D&C History of eye surgery History of hemorrhoidectomy History of hip replacement History of pacemaker History of tonsillectomy and adenoidectomy History of total abdominal hysterectomy and bilateral salpingo-oophorectomy Presence of IVC filter Family History Family History Father Heart disease Stroke Mother Heart disease Sister Breast cancer Brother Heart disease Sister Breast cancer Social History Social History Household Members: Spouse Housing: House Do you presently have visiting nurse or other home services: Yes (once every other week) Alcohol intake: never Patient Tobacco Use Status: Never used Tobacco Advance Directives: Yes Advance Directives on File: Yes Advance Directives Date on File: 09/16/20 service: No Current occupational status: retired Physical Exam Vital Signs: Vital Signs: Last Vital Signs Temp 97.6 F 02/17/21 18:05 Pulse 70 02/17/21 18:05 Resp 16 02/17/21 18:05 BP 115/62 02/17/21 18:05 Pulse Ox 96 02/17/21 18:05 Body Mass Index 18.7 Const: Other: thin appearing General: cooperative Orientation/consciousness: patient oriented x3 Limitations: no limitations HENMT: Head: Yes normal to inspection Ears: hearing grossly normal bilaterally General nose exam: Normal external nose present Face and sinus: Yes normal facial exam Mouth: Normal oral and palatal mucosa present Throat: Yes posterior oropharynx normal Eyes: General: appearance normal, both eyes and all related structures Pupils: Equal, round and reactive pupils present Neck: Neck: Yes normal visual inspection Chest: Chest palpation & inspection: normal inspection of the chest Resp: Effort & Inspection: normal respiratory effort Auscultation: clear to auscultation bilaterally Cardio: Rate: regular rate Rhythm: regular rhythm Peripheral pulses: Peripheral pulses 2+ throughout GI: Inspection: Yes normal to inspection Palpation (GI): Soft to palpation and nontender Auscultation: normal bowel sounds Back/Spine/Pelvis: Thoracic/Lumbar Spine: thoracic and lumbar spine normal to inspection Skin: General skin exam: no rashes or lesions noted Neuro: General: patient oriented x3, no focal motor deficits and normal sensation to monofilament Cranial nerves: Yes Equal, round and reactive pupils present Cognition (Neuro): normal cognition Speech: No Abnormal speech present Gait exam (Neuro): Normal gait present Motor exam (neuro): 5/5 motor strength present throughout Extrem: General: Yes normal to inspection Course Course Course Narrative: 85-year-old female here with complaints of rectal bleeding, diarrhea, generalized weakness. Patient is known and C diff positive and completed a course of vancomycin. She is currently waiting for a new prescription for dificid but has not started this yet. She is currently on Eliquis for AFib On exam the patient is thin appearing. Her vitals are stable. She has no focal abdominal pain on exam. I did perform a rectal exam but I am unable to obtain a stool sample. Will check labs, orthostatics, EKG 1730-patient 2 CBCs drawn 4 hours apart which are unchanged. Her orthostatics are negative. Her additional labs are unremarkable. She had no additional episodes while here in the emergency department. Will discuss with GI. 183-discussed case with Dr. Sood from GI. While patient is waiting for her 2nd antibiotic to be approved recommended starting her on vancomycin 125 mg q.i.d.. He also recommended holding her Eliquis for 2-3 days. Discussed with granddaughter and patient. At this time they do not feel comfortable with her going home tonight as she lives alone. They are requesting she stay in the emergency department this evening and go home in the morning once home care services can be established. Per her granddaughter she does have home care involved but she is hoping to increase the hours of coverage. Case management informed, PT consult, pharmacy consult placed. -placed in physician observation pending disposition 2100-medications reconciled. Eliquis held. Sign out to night team pending above. Medical Decision Making Medical Records Medical records reviewed: Yes I reviewed the patient's medical records. Lab Data Lab results reviewed: Yes I reviewed the patient's lab results. Result diagrams: 02/17/21 16:54 02/17/21 14:14 Labs: Lab Results 02/17/21 02/17/21 02/17/21 Range/Units 14:14 14:14 14:14 WBC 5.6 (4.8-10.8) X10*3/uL RBC 4.12 L (4.20-5.50) X10*6/uL Hgb 12.2 (12.0-16.0) g/dl Hct 36.8 L (37-47) % MCV 89.3 (80-98) fL MCH 29.6 (27.0-33.0) pg MCHC 33.2 (31.0-35.0) g/dl RDW 15.7 (11.0-16.0) % Plt Count 171 (160-400) X10*3/uL MPV 9.6 (9.4-12.3) fL Immature Gran % (Auto) 0.7 H (0.0-0.4) % Neut % (Auto) 66.6 (45-73) % Lymph % (Auto) 19.4 L (20-40) % [place] % (Auto) 11.0 (2-11) % Eos % (Auto) 1.6 (0-4) % Baso % (Auto) 0.7 (0-2) % Lymph # (Auto) 1.1 L (1.2-4.9) X10*3/uL [place] # (Auto) 0.6 (0.1-1.2) X10*3/uL Eos # (Auto) 0.1 (0.0-0.4) X10*3/uL Baso # (Auto) 0.0 (0.0-0.2) X10*3/uL Abs Immat Gran (auto) 0.04 H (0.00-0.03) X10*3/uL Absolute Neuts (auto) 3.7 (2.0-8.3) X10*3/uL Absolute Nucleated RBC 0.000 (0.0-0.012) X10*3/uL Nucleated RBC % (auto) 0.0 (0.0-0.2) /100WBC Sodium 139 (135-145) mmol/L Potassium 4.4 (3.3-5.1) mmol/L Chloride 106 (96-108) mmol/L Carbon Dioxide 26 (22-29) mmol/L Anion Gap 11 L (12-20) BUN 7 L (9-16) mg/dL Creatinine 0.74 (0.5-1.4) mg/dL Estim Creat Clear Calc 37.5 Estimated GFR > 60 Random Glucose 80 (60-115) mg/dL Lactic Acid 0.5 (0.5-2.0) mmol/L Calcium 9.1 (8.4-10.2) mg/dL Total Bilirubin 0.5 (0.0-1.0) mg/dL AST 18 (5-31) U/L ALT 8 (0-31) U/L Alkaline Phosphatase 51 (39-117) U/L Total Protein 5.7 L (6.5-8.0) g/dL Albumin 3.4 L (3.5-5.0) g/dL COVID-19 ([facility]) (Negative) COVID-19 Clin Com 02/17/21 02/17/21 Range/Units 16:54 18:04 WBC 5.8 (4.8-10.8) X10*3/uL RBC 4.39 (4.20-5.50) X10*6/uL Hgb 12.8 (12.0-16.0) g/dl Hct 38.9 (37-47) % MCV 88.6 (80-98) fL MCH 29.2 (27.0-33.0) pg MCHC 32.9 (31.0-35.0) g/dl RDW 15.6 (11.0-16.0) % Plt Count 170 (160-400) X10*3/uL MPV 10.1 (9.4-12.3) fL Immature Gran % (Auto) 0.7 H (0.0-0.4) % Neut % (Auto) 64.9 (45-73) % Lymph % (Auto) 22.7 (20-40) % [place] % (Auto) 9.3 (2-11) % Eos % (Auto) 1.7 (0-4) % Baso % (Auto) 0.7 (0-2) % Lymph # (Auto) 1.3 (1.2-4.9) X10*3/uL [place] # (Auto) 0.5 (0.1-1.2) X10*3/uL Eos # (Auto) 0.1 (0.0-0.4) X10*3/uL Baso # (Auto) 0.0 (0.0-0.2) X10*3/uL Abs Immat Gran (auto) 0.04 H (0.00-0.03) X10*3/uL Absolute Neuts (auto) 3.8 (2.0-8.3) X10*3/uL Absolute Nucleated RBC 0.000 (0.0-0.012) X10*3/uL Nucleated RBC % (auto) 0.0 (0.0-0.2) /100WBC Sodium (135-145) mmol/L Potassium (3.3-5.1) mmol/L Chloride (96-108) mmol/L Carbon Dioxide (22-29) mmol/L Anion Gap (12-20) BUN (9-16) mg/dL Creatinine (0.5-1.4) mg/dL Estim Creat Clear Calc Estimated GFR Random Glucose (60-115) mg/dL Lactic Acid (0.5-2.0) mmol/L Calcium (8.4-10.2) mg/dL Total Bilirubin (0.0-1.0) mg/dL AST (5-31) U/L ALT (0-31) U/L Alkaline Phosphatase (39-117) U/L Total Protein (6.5-8.0) g/dL Albumin (3.5-5.0) g/dL COVID-19 ([facility]) Negative (Negative) COVID-19 Clin Com See Note ECG Data Attestation: I personally reviewed and interpreted this ECG as follows: Interpretation: SR with 1st degree AV block, normal qrs, normal qt Discharge Plan Discharge Clinical Impression: C. difficile colitis Patient Disposition: Home, Self-Care Instructions: C. Diff (Clostridioides Difficile) Infection (ED) Additional Instructions: Hold the Eliquis for 3 days Continue vancomycin and till the new antibiotic has arrived. At that time discontinue the vancomycin Follow-up with your primary care doctor Return for worsening rectal bleeding, dizziness, weakness Prescriptions: New vancomycin 125 mg capsule 125 mg PO QID 10 Days Qty: 40 RF: 0 No Action flecainide 50 mg tablet 50 mg PO BID Qty: 180 RF: 3 simvastatin 10 mg tablet 10 mg PO BEDTIME Qty: 90 RF: 3 Eliquis 2.5 mg tablet 2.5 mg PO BID Qty: 60 RF: 2 metoprolol succinate 25 mg tablet extended release 24 hr 1 tab PO DAILY RF: 0 timolol maleate 0.5 % drops 1 drp ophthalmic (eye) QAM RF: 0
[2021-02-17 14:21] LABS: MANUAL DIFF FLAG NO
[2021-02-17 14:23] LABS: Basophils Percent Auto 0.7 % (0-2); Eosinophils Absolute Auto 0.1 X10*3/uL (0.0-0.4); Eosinophils Percent Auto 1.6 % (0-4); Hematocrit 36.8 % (37-47); Hemoglobin 12.2 g/dl (12.0-16.0); Imm Gran Abs Auto 0.04 X10*3/uL (0.00-0.03); Imm Gran Pct Auto 0.7 % (0.0-0.4); Lymphocytes Absolute Auto 1.1 X10*3/uL (1.2-4.9); Lymphocytes Percent Auto 19.4 % (20-40); Mean Corpuscular HGB Conc 33.2 g/dl (31.0-35.0); Mean Corpuscular Hemoglobin 29.6 pg (27.0-33.0); Mean Corpuscular Volume 89.3 fL (80-98); Mean Platelet Volume 9.6 fL (9.4-12.3); Monocytes Absolute Auto 0.6 X10*3/uL (0.1-1.2); Neutrophils Absolute Auto 3.7 X10*3/uL (2.0-8.3); Neutrophils Percent Auto 66.6 % (45-73); Platelet Count 171 X10*3/uL (160-400); Red Blood Count 4.12 X10*6/uL (4.20-5.50); Red Cell Distribution Width 15.7 % (11.0-16.0); White Blood Count 5.6 X10*3/uL (4.8-10.8)
[2021-02-17 14:35] LABS: Lactic Acid 0.5 mmol/L (0.5-2.0)
[2021-02-17 14:41] LABS: Alanine Aminotransferase 8 U/L (0-31); Albumin Level 3.4 g/dL (3.5-5.0); Alkaline Phosphatase 51 U/L (39-117); Anion Gap 11 (12-20); Aspartate Amino Transferase 18 U/L (5-31); Bilirubin Total 0.5 mg/dL (0.0-1.0); Blood Urea Nitrogen 7 mg/dL (9-16); Calcium 9.1 mg/dL (8.4-10.2); Carbon Dioxide 26 mmol/L (22-29); Chloride 106 mmol/L (96-108); Creatinine Clr Calc Pharmacy 37.5; Estimated Glomerular Filt Rate > 60; Glucose Random 80 mg/dL (60-115); Potassium 4.4 mmol/L (3.3-5.1); Sodium 139 mmol/L (135-145); Total Protein 5.7 g/dL (6.5-8.0)
[2021-02-17 17:02] LABS: MANUAL DIFF FLAG NO
[2021-02-17 17:03] LABS: Basophils Percent Auto 0.7 % (0-2); Eosinophils Absolute Auto 0.1 X10*3/uL (0.0-0.4); Eosinophils Percent Auto 1.7 % (0-4); Hematocrit 38.9 % (37-47); Hemoglobin 12.8 g/dl (12.0-16.0); Imm Gran Abs Auto 0.04 X10*3/uL (0.00-0.03); Imm Gran Pct Auto 0.7 % (0.0-0.4); Lymphocytes Absolute Auto 1.3 X10*3/uL (1.2-4.9); Lymphocytes Percent Auto 22.7 % (20-40); Mean Corpuscular HGB Conc 32.9 g/dl (31.0-35.0); Mean Corpuscular Hemoglobin 29.2 pg (27.0-33.0); Mean Corpuscular Volume 88.6 fL (80-98); Mean Platelet Volume 10.1 fL (9.4-12.3); Monocytes Absolute Auto 0.5 X10*3/uL (0.1-1.2); Monocytes Percent Auto 9.3 % (2-11); Neutrophils Absolute Auto 3.8 X10*3/uL (2.0-8.3); Neutrophils Percent Auto 64.9 % (45-73); Platelet Count 170 X10*3/uL (160-400); Red Blood Count 4.39 X10*6/uL (4.20-5.50); Red Cell Distribution Width 15.6 % (11.0-16.0); White Blood Count 5.8 X10*3/uL (4.8-10.8)
[2021-02-17 18:28] LABS: COVID-19 Test Negative (Negative); IDNOW Serial# 9DD0AD1C
[2021-02-17] MEDS: vancomycin HCL 125 MG CAPSULE PO ×2 (18:38→22:53)
--- NOTE | 2021-02-17 22:02 | MHC.CM.ED ---
CM met with patient. A&Ox3. Very pleasant. Independent. Lives with , Good. is unable to help her much. Uses a [employer] walker. Has home services through [facility], pays privately. Granddaughter helps also. Pt requests HCP be changed to granddaughter, Durga Orosco ([phone]). Pt feels she has enough help at home, but shares that she is worried about losing her independence. Pt has been to STR at [facility]; will not go back. PT evaluation for am. Pt denies difficulty with ambulation. Pt plans to return home tomorrow. D/C plan is home. Family to provide transportation home. CM to follow for d/c needs.
[2021-02-17] MEDS: Flecainide Acetate 50 MG TABLET PO (22:52)
--- NOTE | 2021-02-17 22:52 | MHC.CM.ED ---
Pt requested HCP be changed. HCP on file has Michelle Saldana as the HCP. New HCP completed with Lew Orosco ([phone]) as pt's new HCP. Signed and copies given to pt. Uploaded into [employer] and [employer]. Pt to BR with wheeled walker. Ambulates with steady gait. CM to follow for d/c needs.
[2021-02-17] MEDS: Atorvastatin Calcium 10 MG TABLET PO (22:53)
--- NOTE | 2021-02-17 23:24 | PC.NURSE ---
PT MET WITH CM, PLAN IS TO DC IN AM HOME WITH FAMILY. PT OFFERS NO COMPLAINTS AT THIS TIME, TOOK PM MEDS PER MAR WITHOUT DIFFICULTY. WARM BLANKET AND PO FLUIDS PROVIDED. WILL CONTINUE TO MONITOR FOR ANY FUTURE NEEDS.
--- NOTE | 2021-02-18 00:33 | PC.NURSE ---
PT RESTING IN BED EYES CLOSED SKIN PWD RESPIRATIONS EVENAB. NO DISTRESS NOTED. WILL ONTINUE TO MONITOR.
--- NOTE | 2021-02-18 07:10 | PC.NURSE ---
Assumed care of patient. Pt is resting comfortably at this time and appears to be in no distress. Pt has been cleared by case management and reportedly is being picked up by family this morning.
--- NOTE | 2021-02-18 07:16 | PC.NURSE ---
Pt is up ambulating with her walker with PT and appears steady on her feet.
[2021-02-18 07:31] VITALS: BP 105/62; PULSE 74; O2SAT 94
[2021-02-18 08:49] VITALS: BP 105/62
[2021-02-18] MEDS: vancomycin HCL 125 MG CAPSULE PO (08:49)
[2021-02-18] MEDS: Metoprolol Succinate ER 25 MG TAB.ER.24H PO (08:49)
[2021-02-18] MEDS: timoloL maleate 0.5 % Oph Sol 5 ML DRBTL 1 DROP EYE-BOTH (09:55)
[2021-02-18 09:57] VITALS: BP 114/71; PULSE 65
[2021-02-18] MEDS: Flecainide Acetate 50 MG TABLET PO (09:57)
--- NOTE | 2021-02-18 11:02 | MHC.CM.ED ---
Patient remains in ER. Physical therapy eval completed. Home services are recommended. Attempted to call patient's granddaughter/HCP, Lew via telephone at [phone]. Left message requesting return telephone call. Continue to monitor for d/c needs.
--- NOTE | 2021-02-18 11:44 | MHC.CM.ED ---
Received return telephone call from patient's granddaughter/HCP Lew. Patient is active with [facility]. Clinton made aware of ER visit. Lew will be here around 1pm to pick patient up and transport her home. Patient, Balwinder VILLALPANDO and Dr Garzon aware. Continue to monitor for d/c needs.
== END 2021-02-18 13:06 | disposition home or self-care (01) ==
PROVIDERS: Nurse Practitioner Family; Emergency Provider Emergency Medicine; PCP Internal Medicine
DX: A04.72 Enterocolitis due to Clostridium difficile, not specified as recurrent (principal); I10 Essential (primary) hypertension; I48.91 Unspecified atrial fibrillation; Z20.822 Contact with and (suspected) exposure to COVID-19; Z86.73 Personal history of transient ischemic attack (TIA), and cerebral infarction without residual deficits; Z79.01 Long term (current) use of anticoagulants
CPT/HCPCS: 36415; 80053; 83605; 85025; 87635; 93005; 97162; 99285

== ENCOUNTER → 2021-02-21 14:07 | Outpatient (BNVA) | payer OTHER, SELFPAY | PROVIDERS: PCP Internal Medicine; Referring Provider Internal Medicine; Visit Provider Internal Medicine ==

== ENCOUNTER 2021-03-17 10:14 | Outpatient (REF) | payer OTHER, SELFPAY ==
[2021-03-17 11:41] LABS: INTERNATIONAL NORM RATIO 1.2 (0.9-1.1); Prothrombin Time 13.2 SEC (9.9-13.0)
[2021-03-17 12:17] LABS: Hematocrit 40.5 % (37-47); Hemoglobin 13.4 g/dl (12.0-16.0); Mean Corpuscular HGB Conc 33.1 g/dl (31.0-35.0); Mean Corpuscular Volume 90.8 fL (80-98); Mean Platelet Volume 11.2 fL (9.4-12.3); Platelet Count 168 X10*3/uL (160-400); Red Blood Count 4.46 X10*6/uL (4.20-5.50); Red Cell Distribution Width 16.5 % (11.0-16.0)
[2021-03-17 12:35] LABS: Anion Gap 11 (12-20); Blood Urea Nitrogen 14 mg/dL (9-16); Calcium 9.5 mg/dL (8.4-10.2); Carbon Dioxide 28 mmol/L (22-29); Chloride 105 mmol/L (96-108); Estimated Glomerular Filt Rate > 60; Glucose Random 83 mg/dL (60-115); Potassium 4.5 mmol/L (3.3-5.1); Sodium 139 mmol/L (135-145)
== END 2021-03-17 10:15 | disposition home or self-care (01) ==
LOC: HO.LAB 10:14
PROVIDERS: PCP Internal Medicine; Visit Provider Internal Medicine Cardiovascular Disease
DX: I49.5 Sick sinus syndrome (principal); I50.9 Heart failure, unspecified
CPT/HCPCS: 36415; 80048; 85027; 85610

== ENCOUNTER 2021-03-24 08:14 | Day surgery (SDC) | payer OTHER, SELFPAY ==
[2021-03-17 15:21] VITALS: BMI 18.9
--- NOTE | 2021-03-23 10:36 | HO.ANESPROP2 ---
Documented by User: Zoya An NP 03/23/21 10:39 HPI - Anesthesia Eval Consult details Narrative: 85yo F for?Pacemaker Generator Change *Multiple Med Allergies* Pacer implanted 2010 (sick sinus syndrome) Eliquis for PAF / Protein S deficiency PMFSH Active Problems Active Problems: All Active Problems (Updated 03/17/21 @ 15:09 by Jackie Olivarez, RN) Current use of anticoagulant therapy (Acute) Dermatitis, seborrheic (Acute) Muscle spasm (Acute) Difficulty swallowing (Acute) Gait instability (Acute) Seizure disorder (Acute) Syncope (Acute) Encounter for monitoring flecainide therapy (Acute) Chest tightness (Acute) Bleeding in brain (Acute) Vertigo (Acute) CVA (cerebral vascular accident) (Acute) Diarrhea (Acute) Annual physical exam (Acute) Encounter for pacemaker at end of battery life (Acute) C. difficile colitis (Acute) Arterial hypotension (Acute) PAF (paroxysmal atrial fibrillation) (Acute) Coronary artery disease (Acute) Hypertension (Acute) Protein S deficiency (Acute) Hypercholesterolemia (Acute) Past Medical History Medical History Arterial hypotension C. difficile colitis Coronary artery disease Dizziness Glaucoma History of pulmonary embolism Hypercholesterolemia Hypertension Irritable bowel syndrome Nodule of neck Pacemaker PAF (paroxysmal atrial fibrillation) Peripheral neuropathy Post concussive syndrome Protein S deficiency Sick sinus syndrome Stress incontinence Family History Family History Father Heart disease Stroke Mother Heart disease Sister Breast cancer Brother Heart disease Sister Breast cancer Surgical History Surgical History H/O breast surgery History of appendectomy History of D&C History of eye surgery History of hemorrhoidectomy History of hip replacement History of pacemaker History of tonsillectomy and adenoidectomy History of total abdominal hysterectomy and bilateral salpingo-oophorectomy Presence of IVC filter Social History Social History Household Members: Spouse Housing: House Are you a primary hearing care professional to a significant other at home: Yes () Do you presently have visiting nurse or other home services: Yes (IMPORT EXPORT CLERK, PT, OT, VNA) Alcohol intake: never Patient Tobacco Use Status: Never used Tobacco Use of substances other than those prescribed or required for medical reasons: No Are you DNR?: No Advance Directives: Yes Advance Directives Information Provided: No (on file) Advance Directives on File: Yes Advance Directives Date on File: 09/16/20 service: No Current occupational status: retired Meds Allergies Allergy/AdvReac Type Severity Reaction Status Date / Time doxycycline [Doxycycline] Allergy Severe DIFF Verified 03/17/21 15:24 BREATHING Penicillins Allergy Severe DIFF Verified 03/17/21 15:24 BREATHING tetracycline [Tetracycline] Allergy Severe DIFF Verified 03/17/21 15:24 BREATHING codeine [Codeine] Allergy Intermediate VOMITING Verified 03/17/21 15:24 oxycodone [From PERCOCET] AdvReac Intermediate VOMITING Verified 02/21/21 14:39 Peppers, Green AdvReac Intermediate Vomiting Verified 03/17/21 15:21 epinephrine Allergy Intermediate heart Uncoded 03/17/21 15:24 racing From Novocain Allergy Intermediate LOWERED BP Uncoded 03/17/21 15:24 - OK IF IT DOES NOT HAVE EPINEPHRINE IN IT toro for MIBI Allergy Unknown headache Uncoded 02/21/21 14:39 most antibiotics Allergy Unknown Unknown Uncoded 02/21/21 14:39 Pt states she CAN take Emycin Allergy Unknown Unknown Uncoded 02/21/21 14:39 Home Medications Medication Instructions Recorded Confirmed Last Taken Type timolol maleate 0.5 % eye drops 1 drp OPHTHALMIC (EYE) QAM 12/09/20 03/17/21 02/17/21 History metoprolol succinate 25 mg 1 tab PO DAILY 02/17/21 03/17/21 03/24/21 History tablet,extended release 24 hr Lactobacillus rhamnosus GG 10 1 cap PO DAILY 03/17/21 03/17/21 Unknown History billion cell capsule (Culturelle) ascorbic acid (vitamin C) 1,000 mg 1,000 mg PO Q12H 03/17/21 03/17/21 Unknown History tablet,extended release (Vitamin C ER) cholecalciferol (vitamin D3) 50 50 mcg PO DAILY 03/17/21 03/17/21 Unknown History mcg (2,000 unit) capsule (Vitamin D3) ferrous sulfate 324 mg (65 mg 324 mg PO BID 03/17/21 03/17/21 Unknown History iron) tablet,delayed release vitamin M65-saurh acid 03/17/21 Unknown History Exam Exam Date and Time: March 23, 2021 1036 Height,Weight and Vital Signs: Height 5 ft Weight 43.998 kg Pertinent Lab Results Pertinent Lab Results: Laboratory Tests 03/17/21 03/17/21 10:45 10:45 WBC 5.0 Hgb 13.4 Hct 40.5 Plt Count 168 Sodium 139 Potassium 4.5 Chloride 105 Carbon Dioxide 28 BUN 14 D Creatinine 0.84 Narrative Narrative: EKG 02/2021 Vent. Rate : 072 BPM ? ? Atrial Rate : 072 BPM ?? P-R Int : 252 ms? QRS Dur : 114 ms ? ? QT Int : 430 ms ? ? ? P-R-T Axes : 075 -41 086 degrees ?? QTc Int : 470 ms ? Sinus rhythm with 1st degree A-V block Left axis deviation Anteroseptal infarct (cited on or before 14-SEP-2003) Abnormal ECG When compared with ECG of 15-JAN-2021 20:07, Left axis deviation is now Present Assessment and Plan Assessment Anesthesia Assessment: Chart Reviewed Documented by User: Natalia Plata MD 03/24/21 09:16 [facility] Past Medical History Medical History Arterial hypotension C. difficile colitis Coronary artery disease Dizziness Glaucoma History of pulmonary embolism Hypercholesterolemia Hypertension Irritable bowel syndrome Nodule of neck Pacemaker PAF (paroxysmal atrial fibrillation) Peripheral neuropathy Post concussive syndrome Protein S deficiency Sick sinus syndrome Stress incontinence Family History Family History Father Heart disease Stroke Mother Heart disease Sister Breast cancer Brother Heart disease Sister Breast cancer Family history of problems with anesthesia: No Surgical History Surgical History H/O breast surgery History of appendectomy History of D&C History of eye surgery History of hemorrhoidectomy History of hip replacement History of pacemaker History of tonsillectomy and adenoidectomy History of total abdominal hysterectomy and bilateral salpingo-oophorectomy Presence of IVC filter History of Problems with Anesthesia: Yes (Yes with spinal- ?generalized body pain- vague about problem, N&V with ether) Social History Social History Household Members: Spouse Housing: House Are you a primary hearing care professional to a significant other at home: Yes () Do you presently have visiting nurse or other home services: Yes (IMPORT EXPORT CLERK, PT, OT, VNA) Alcohol intake: never Patient Tobacco Use Status: Never used Tobacco Use of substances other than those prescribed or required for medical reasons: No Are you DNR?: No Advance Directives: Yes Advance Directives Information Provided: No (on file) Advance Directives on File: Yes Advance Directives Date on File: 09/16/20 service: No Current occupational status: retired Meds Allergies Allergy/AdvReac Type Severity Reaction Status Date / Time doxycycline [Doxycycline] Allergy Severe DIFF Verified 03/17/21 15:24 BREATHING Penicillins Allergy Severe DIFF Verified 03/17/21 15:24 BREATHING tetracycline [Tetracycline] Allergy Severe DIFF Verified 03/17/21 15:24 BREATHING codeine [Codeine] Allergy Intermediate VOMITING Verified 03/17/21 15:24 oxycodone [From PERCOCET] AdvReac Intermediate VOMITING Verified 02/21/21 14:39 Peppers, Green AdvReac Intermediate Vomiting Verified 03/17/21 15:21 epinephrine Allergy Intermediate heart Uncoded 03/17/21 15:24 racing From Novocain Allergy Intermediate LOWERED BP Uncoded 03/17/21 15:24 - OK IF IT DOES NOT HAVE EPINEPHRINE IN IT toro for MIBI Allergy Unknown headache Uncoded 02/21/21 14:39 most antibiotics Allergy Unknown Unknown Uncoded 02/21/21 14:39 Pt states she CAN take Emycin Allergy Unknown Unknown Uncoded 02/21/21 14:39 Home Medications Medication Instructions Recorded Confirmed Last Taken Type timolol maleate 0.5 % eye drops 1 drp OPHTHALMIC (EYE) QAM 12/09/20 03/17/21 02/17/21 History metoprolol succinate 25 mg 1 tab PO DAILY 02/17/21 03/17/21 03/24/21 History tablet,extended release 24 hr Lactobacillus rhamnosus GG 10 1 cap PO DAILY 03/17/21 03/17/21 Unknown History billion cell capsule (Culturelle) ascorbic acid (vitamin C) 1,000 mg 1,000 mg PO Q12H 03/17/21 03/17/21 Unknown History tablet,extended release (Vitamin C ER) cholecalciferol (vitamin D3) 50 50 mcg PO DAILY 03/17/21 03/17/21 Unknown History mcg (2,000 unit) capsule (Vitamin D3) ferrous sulfate 324 mg (65 mg 324 mg PO BID 03/17/21 03/17/21 Unknown History iron) tablet,delayed release vitamin N69-bobbd acid 03/17/21 Unknown History Exam Height,Weight and Vital Signs: Height 5 ft Weight 43.998 kg Vital Signs Temp Pulse Resp BP Pulse Ox 03/24/21 08:35 98.1 F 65 16 113/70 99 Airway Mallampati Class: II TM Dist: >3cm Neck ROM: Limited Partial: Upper Heart: RRR Lungs: CTAB Assessment and Plan Assessment Anesthesia Assessment: Anesthesia Plan Discussed Final Anesthetic Review Family History of Problems with Anesthesia: No History of Problems with Anesthesia: Yes (Yes with spinal- ?generalized body pain- vague about problem, N&V with ether) NPO: Yes ASA Class: III Final Preanesthetic Review: No Changes in Pt Med Stat, Meds/Allgs Chart Reviewed, Consent Obtained/Reviewed and Anes Risks/Benef Reviewed Patient Risk: Intermediate Procedure Risk: Intermediate Assessment/Block/Sedation in SS: Assess/Block/Sedation-SS Anesthetic Plan Anesthetic Plan: MAC: Disposition: Standard PACU
[2021-03-24] VITALS (13 sets, daily range): BP systolic 113–171; BP diastolic 67–87; PULSE 60–71; RESP 12–18; TEMP 36.1–36.7; O2SAT 94–100
[2021-03-24] MEDS: Lactated Ringers 1,000 ML 100 ML IVCONT (08:54)
[2021-03-24] MEDS: vancomycin HCL 1,000 MG in 0.9 % Sodium Chloride 250 ML 270 MG IV (08:54)
--- NOTE | 2021-03-24 11:49 | PM.OP ---
Brief Operative Note Date of Service: 03/24/21 Pre-op diagnosis: SSS Post-op diagnosis: same Procedure: dual chamber PPM generator change Plan Discharge after 1 hour Called daughter Erik Taylor to confirm wound instrucions to not shower for 5 days and hold eliquis until Thursday 03/29 Surgeon: Jenny Lion MD Was an Supervisor [employer] used for this Procedure?: No Estimated blood loss (mL): 50 Condition: stable
[2021-03-24] MEDS: Acetaminophen 325 MG TABLET 650 MG PO (12:37)
[2021-03-24] MEDS: fentaNYL citrate/PF 100 MCG/2 ML VIAL 25 MCG IVPUSH (12:56)
--- NOTE | 2021-03-24 17:34 | W.PM.OPN ---
Operative Note Operative Note Date of Service: 03/24/21 Narrative: Date of Service: 03/24/21 Narrative: Narrative: Procedure: Dual chamber pacemaker generator change Indication: sick sinus syndrome, STALIN Anesthesia: MAC provided by anesthesia Procedure The risks, benefits, complications, alternatives and expected outcomes were discussed with the patient. Patient was prepped and draped in the usual sterile fashion. After the antibiotic was infused, lidocaine was infiltrated medial to the deltopectoral groove. An incision was made. The incision was extended to the prepectoral fascia using blunt dissection.The leads were detached from the prior device and attached to the new device. The system was placed in the pocket. The pin of the lead was beyond the set screws. Hemostasis was verified. The pocket was closed with 3 layers. Steristrips and tegaderm were applied Device New: Medtronic Lydia XT DR MRI model # W1DR01 serial number [id number] Device removed/old: Medtronic Versa serial number [id number] RV lead: St Rupesh 1888TC, serial number [id number] R waves 6.8 mV, threshold 1.25V at 1.0 ms, impedance 437 ohms, RA lead: St Rupesh 1888TC, serial number [id number] Impedance 288 ohms, P waves 1.0 mV, threshold 0.75V at 0.5 ms Programmed AAIR <-> DDDR 60 to 130 BPM Jenny Lion Electrophysiology/Cardiology Attending
== END 2021-03-24 15:22 | disposition home or self-care (01) ==
PROVIDERS: PCP Internal Medicine; Visit Provider Internal Medicine Cardiovascular Disease
PROC: (CPT 33228; principal; 2021-03-24 09:30)
DX: I49.5 Sick sinus syndrome (principal); Z45.018 Encounter for adjustment and management of other part of cardiac pacemaker; I48.0 Paroxysmal atrial fibrillation; Z79.01 Long term (current) use of anticoagulants; I10 Essential (primary) hypertension; D68.59 Other primary thrombophilia; G40.909 Epilepsy, unspecified, not intractable, without status epilepticus; Z86.73 Personal history of transient ischemic attack (TIA), and cerebral infarction without residual deficits; Z79.899 Other long term (current) drug therapy; Z88.0 Allergy status to penicillin; Z88.1 Allergy status to other antibiotic agents; Z88.8 Allergy status to other drugs, medicaments and biological substances
CPT/HCPCS: 33228; C1785; J2370; J3010; J3370

== ENCOUNTER → 2021-05-12 13:06 | Outpatient (BNVA) | payer OTHER, SELFPAY | PROVIDERS: PCP Internal Medicine; Referring Provider Internal Medicine; Visit Provider Internal Medicine ==

== ENCOUNTER 2021-09-16 09:29 | Inpatient (IN) | payer OTHER, SELFPAY ==
[2021-09-16] VITALS (13 sets, daily range): BP systolic 108–141; BP diastolic 66–81; PULSE 60–91; RESP 12–26; TEMP 36.1–39.1; O2SAT 85–100; BMI 14.1; BMI 15.7
--- NOTE | ~2021-09-16 | CT_ITS ---
EXAMINATION: CT head/brain wo con CLINICAL INFORMATION: Reason for Exam headache on AC with eliquis COMPARISON: CT brain 09/09/2020 TECHNIQUE: Contiguous axial imaging was performed from the skull base to vertex without intravenous contrast. Sagittal and coronal reformatted images were obtained. This CT examination was performed using dose optimization techniques as appropriate, variously including the following: * Automated exposure control * Adjustment of mA and/or kV according to patient size (this includes techniques or standardized protocols for targeted exams where dose is matched to indication/reason for exam; i.e. extremities or head) Use of iterative reconstruction technique DLP: 617 mGy-cm FINDINGS: No acute osseous or soft tissue abnormality. The mastoid air cells and visualized portions of the paranasal sinuses are well aerated. Bilateral lens replacements. There is no evidence of acute intracranial hemorrhage or territorial infarction. No abnormal mass effect or midline shift is seen. [place] to white matter differentiation is well preserved. No extra-axial fluid collections are identified. 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 No hydrocephalus. Proportional prominence of the ventricles and sulcal spaces is consistent with mild volume loss. Confluent periventricular and deep white matter hypoattenuation is consistent with severe small vessel ischemic changes. CT/CT head/brain wo con IMPRESSION: 1. No acute intracranial abnormality. 2. Mild parenchymal volume loss and advanced chronic microvascular ischemic change with stable remote left thalamic lacunar infarct.
--- NOTE | ~2021-09-16 | XR_ITS ---
EXAMINATION: XR CHEST CLINICAL INFORMATION: Hypoxia, shortness of breath. COMPARISON: 06/02/2020 chest radiograph. TECHNIQUE: Frontal view of the chest was obtained. Mildly rotated positioning limits evaluation. FINDINGS: Support devices: A left-sided pacemaker appears in good position. No significant abnormality is noted involving the heart, lungs, mediastinum, bony thorax or soft tissues. XR/XR chest 1V IMPRESSION: No acute cardiopulmonary process.
--- NOTE | ~2021-09-16 | CT_ITS ---
EXAMINATION: CT ANGIOGRAM OF THE CHEST WITH AND WITHOUT CONTRAST (CT PULMONARY ANGIOGRAM FOR PE) CLINICAL INFORMATION: Reason for Exam covid + severely hypoxic COMPARISON: CT from 10/29/2019 TECHNIQUE: Prior to contrast administration, noncontrast localization images were obtained. Subsequently, multidetector volumetric imaging was performed from the thoracic inlet to below the diaphragms following the administration of 65 mL Omnipaque 350 intravenous contrast. No contrast reaction reported Sagittal, coronal, and MIP oblique sagittal reformatted images were obtained on the CT workstation, uploaded to PACS, and reviewed. This CT examination was performed using dose optimization techniques as appropriate, variously including the following: *Automated exposure control *Adjustment of mA and/or kV according to patient size (this includes techniques or standardized protocols for targeted exams where dose is matched to indication/reason for exam; i.e. extremities or head) *Use of iterative reconstruction technique Total exam dose-length product 243 mGy-cm FINDINGS: QUALITY OF STUDY/CONTRAST BOLUS: Satisfactory. PULMONARY ARTERIES: No central or segmental pulmonary emboli. THORACIC AORTA: No aneurysm or dissection. LUNG: The trachea is patent. Bronchial filling defect in the left lower lobe bronchus. Left lower lobe collapse. Subpleural reticulation bilaterally. Minimal groundglass opacities are seen scattered bilaterally. Significant dependent consolidation of the right lower lobe with air bronchograms. PLEURA: No pleural effusion or pneumothorax. MEDIASTINUM: Normal heart size. No pericardial effusion. No hilar or mediastinal lymphadenopathy. No evidence of septal bowing or right heart strain. Left chest wall pacer in place. CHEST WALL/AXILLA: No axillary or internal mammary lymphadenopathy. OSSEOUS STRUCTURES: No acute or suspicious osseous abnormality. Degenerative change throughout the spine. UPPER ABDOMEN: Cysts are noted in the liver. IVC filter noted. No reflux of contrast into the hepatic veins to suggest elevated right heart pressures. CT/CT angio chest PE protocol IMPRESSION: 1. No pulmonary embolism. 2. Left lower lobe collapse. Bronchial filling defect could represent mucous plugging. 3. Dependent consolidation of the right lower lobe with air bronchograms could be atelectasis or pneumonia. Additional scattered groundglass opacification may be infectious or inflammatory. VTE: negative
--- NOTE | 2021-09-16 09:43 | ECG_ITS ---
Test Reason : difficulty breathing Blood Pressure : / mmHG Vent. Rate : 082 BPM Atrial Rate : 082 BPM P-R Int : 186 ms QRS Dur : 098 ms QT Int : 376 ms P-R-T Axes : 067 -52 071 degrees QTc Int : 439 ms Sinus rhythm with Premature atrial complexes Left anterior fascicular block Minimal voltage criteria for LVH, may be normal variant ( Bernardo product ) Anteroseptal infarct (cited on or before 14-SEP-2003) Abnormal ECG When compared with ECG of 17-FEB-2021 15:20, Premature atrial complexes are now Present DE interval has decreased Referred By: Kaela Geronimo Electronically Signed By:MIKE MARTINEZ MD
--- NOTE | 2021-09-16 09:57 | ED.SOB ---
HPI - SOB/Dyspnea General Chief Complaint: Dyspnea Stated Complaint: diff breathing Time Seen by Provider: 09/16/21 09:32 Source: patient, EMS and other (Healthcare proxy, family friend) Mode of arrival: EMS Limitations: other (Short of breath) History of Present Illness HPI Narrative: Patient comes to the emergency room via EMS from assisted living. Patient has been complaining of shortness of breath for the last 2 days. Patient is DNR DNI do not transfer to hospital. However, the patient states that she does not feel well and wanted to come to the hospital. When EMS arrived, patient's oxygen saturation was in the low 70s on room air. Patient is not oxygen dependent. Patient denies chest pain. Patient's healthcare proxy/ friend is at the patient's bedside. If the patient needs a BiPAp or high-flow, per patient and healthcare proxy, we can try even if the MOLDS forms says do not use noninvasive ventilation. Related Data Home Medications Medication Instructions Recorded Confirmed timolol maleate 0.5 % eye drops 1 drp OPHTHALMIC (EYE) QAM 12/09/20 05/12/21 Lactobacillus rhamnosus GG 10 1 cap PO DAILY 03/17/21 05/12/21 billion cell capsule (Culturelle) ascorbic acid (vitamin C) 1,000 mg 1,000 mg PO Q12H 03/17/21 05/12/21 tablet,extended release (Vitamin C ER) cholecalciferol (vitamin D3) 50 50 mcg PO DAILY 03/17/21 05/12/21 mcg (2,000 unit) capsule (Vitamin D3) ferrous sulfate 324 mg (65 mg 324 mg PO BID 03/17/21 05/12/21 iron) tablet,delayed release vitamin [id number] acid 03/17/21 05/12/21 Previous Rx's Medication Instructions Recorded simvastatin 10 mg tablet 10 mg PO BEDTIME #90 tab 12/25/20 apixaban 2.5 mg tablet (Eliquis) 2.5 mg PO BID #60 tab 01/26/21 flecainide 50 mg tablet 50 mg PO BID #180 tab 05/14/21 metoprolol succinate 25 mg 25 mg PO DAILY #90 tab 05/14/21 tablet,extended release 24 hr Allergies Allergy/AdvReac Type Severity Reaction Status Date / Time doxycycline [Doxycycline] Allergy Severe DIFF Verified 05/12/21 14:28 BREATHING Penicillins Allergy Severe DIFF Verified 05/12/21 14:28 BREATHING tetracycline [Tetracycline] Allergy Severe DIFF Verified 05/12/21 14:28 BREATHING codeine [Codeine] Allergy Intermediate VOMITING Verified 05/12/21 14:28 oxycodone [From PERCOCET] AdvReac Intermediate VOMITING Verified 05/12/21 14:28 Peppers, Green AdvReac Intermediate Vomiting Verified 05/12/21 14:28 epinephrine Allergy Intermediate heart Uncoded 03/17/21 15:24 racing From Novocain Allergy Intermediate LOWERED BP Uncoded 03/17/21 15:24 - OK IF IT DOES NOT HAVE EPINEPHRINE IN IT toro for MIBI Allergy Unknown headache Uncoded 02/21/21 14:39 most antibiotics Allergy Unknown Unknown Uncoded 02/21/21 14:39 Pt states she CAN take Emycin Allergy Unknown Unknown Uncoded 02/21/21 14:39 Review of Systems Review of Systems: Shortness of breath, no chest pain, unable to provide any further history Yes Unobtainable due to mental condition (Shortness of breath) PMFSH Past Medical History Medical History Arterial hypotension C. difficile colitis Coronary artery disease Dizziness Glaucoma History of pulmonary embolism Hypercholesterolemia Hypertension Irritable bowel syndrome Nodule of neck Pacemaker PAF (paroxysmal atrial fibrillation) Peripheral neuropathy Post concussive syndrome Protein S deficiency Sick sinus syndrome Stress incontinence Surgical History H/O breast surgery History of appendectomy History of D&C History of eye surgery History of hemorrhoidectomy History of hip replacement History of pacemaker History of tonsillectomy and adenoidectomy History of total abdominal hysterectomy and bilateral salpingo-oophorectomy Presence of IVC filter Family History Family History Father Heart disease Stroke Mother Heart disease Sister Breast cancer Brother Heart disease Sister Breast cancer Social History Social History Household Members: Spouse Housing: House Are you a primary manager critical care to a significant other at home: Yes () Do you presently have visiting nurse or other home services: Yes (PRODUCT SAFETY PROFESSIONAL, PT, OT, VNA) Alcohol intake: never Patient Tobacco Use Status: Never used Tobacco Use of substances other than those prescribed or required for medical reasons: No Advance Directives: Yes Advance Directives on File: Yes Advance Directives Date on File: 09/16/20 service: No Current occupational status: retired Physical Exam Vital Signs: Vital Signs: Last Vital Signs Temp 97.6 F 09/16/21 14:25 Pulse 83 09/16/21 14:25 Resp 19 09/16/21 15:13 BP 137/79 09/16/21 14:25 Pulse Ox 100 09/16/21 14:25 BMI result Body Mass Index 14.1 Const: Other: Appearance: Alert. Ill-appearing Eyes: Pupils equal, round and reactive to light. ENT: Pharynx normal. Neck: Normal inspection. Neck supple. No lymph nodes noted. No crepitus CVS: Normal heart rate and rhythm. Pulses normal. Normal S1 and S2 Respiratory: In respiratory distress, on a non-rebreather on 15 L saturating 92%, decreased breath sounds, bilateral rales and crackles Abdomen: Soft and nontender. No rigidity. No distention. Skin: Skin warm and dry. Normal skin color. Normal skin turgor. Extremities: No lower extremity edema. No Lacerations. No Rash Neuro: Moving all extremities. No slurred speech. CN 2 through 12 grossly intact Psych: Anxious, normal affect Course Course Course Narrative: When patient arrived, patient was saturating in the low 80s on 5 L nasal cannula. Patient was switched to a non-rebreather, now saturating 92% on 15 L. Patient is being treated empirically for pneumonia with Levaquin IV, fluids have been started. Patient is DNR DNI, due to her age and current condition we will administer the IV fluids at a slower rate. Had echocardiogram from 2019 shows a normal ejection fraction and systolic function Most of labs are painting. However, patient tested positive for COVID-19. According to her healthcare proxy patient is on immunized. Patient was given 1 dose of IV 6 mg Decadron. Patient will be placed on high-flow patient does not have a PE. However, she does have a left lower lobe collapse, likely a mucous plug. Patient is a hospice patient. I discussed the patient with our hospitalist. We will reach out to the hospice agency [facility] to the healthcare proxy, and clarify the goal of care. The prognosis of the patient is poor. Patient is currently on 55 L at 100% in a high-flow, and additionally has a non-rebreather mask at 15 L to keep up her oxygen saturation. Currently patient is comfortable with the above-mentioned settings. Physician observation started at 14:35. Case management consult has been requested, hospice consult pending I discussed with the patient and her health care proxy was at bedside the options of treatment. Both agree that patient wants to remain DNR DNI but she wants to be fully treated for COVID. Then, she would like to be put in hospice again when she is discharged from the hospital I discussed the patient with nurse practitioner Natalie, patient being admitted, patient symptoms started 2 days ago, tested positive today, we will go ahead and start remdesivir MDM - SOB/Dyspnea Lab Data Result diagrams: 09/16/21 09:55 09/16/21 09:55 Labs: Lab Results 09/16/21 09/16/21 09/16/21 Range/Units 09:55 09:55 09:55 WBC 7.5 (4.8-10.8) X10*3/uL RBC 4.49 (4.20-5.50) X10*6/uL Hgb 13.4 (12.0-16.0) g/dl Hct 39.6 (37.0-47.0) % MCV 88.2 (80.0-98.0) fL MCH 29.8 (27.0-33.0) pg MCHC 33.8 (31.0-35.0) g/dl RDW 14.9 (11.0-16.0) % Plt Count 88 L (160-400) X10*3/uL MPV 10.3 (9.4-12.3) fL Immature Gran % (Auto) Cancelled Neut % (Auto) Cancelled Lymph % (Auto) Cancelled [place] % (Auto) Cancelled Eos % (Auto) Cancelled Baso % (Auto) Cancelled Lymph # (Auto) Cancelled [place] # (Auto) Cancelled Eos # (Auto) Cancelled Baso # (Auto) Cancelled Abs Immat Gran (auto) Cancelled Absolute Neuts (auto) Cancelled Absolute Nucleated RBC 0.000 (0.0-0.012) X10*3/uL Nucleated RBC % (auto) 0.0 (0.0-0.2) /100WBC Neutrophils % (Manual) 39 L (45-73) % Band Neutrophils % 49 H (3-5) % Lymphocytes % (Manual) 4 L (20-40) % Monocytes % (Manual) 2 (2-11) % Metamyelocytes % 6 % Abs Neuts (Manual) 6.6 (2.0-8.3) X10*3/uL Lymphocytes # (Manual) 0.3 L (1.2-4.9) X10*3/uL Monocytes # (Manual) 0.2 (0.1-1.2) X10*3/uL Metamyelocytes # 0.5 X10*3/uL Toxic Vacuolation PRESENT Platelet Estimate DECREASED (NORMAL) Large Platelets PRESENT Plt Morphology Comment NOTED RBC Morphology NORMAL VBG pH (7.32-7.43) VBG pCO2 mmHg VBG pO2 mmHg VBG HCO3 (22-26) mmol/L VBG O2 Saturation % VBG Base Excess mmol/L Sodium 132 L (135-145) mmol/L Potassium 3.7 (3.3-5.1) mmol/L Chloride 97 (96-108) mmol/L Carbon Dioxide 25 (22-29) mmol/L Anion Gap 14 (12-20) BUN 16 (9-16) mg/dL Creatinine 0.81 (0.5-1.4) mg/dL Estim Creat Clear Calc 32.4 Estimated GFR > 60 Random Glucose 91 (60-115) mg/dL Lactic Acid (0.5-2.0) mmol/L Calcium 8.2 L D (8.4-10.2) mg/dL Magnesium 1.7 (1.6-2.6) mg/dL Total Bilirubin 0.6 (0.0-1.0) mg/dL Direct Bilirubin 0.3 (0.0-0.5) mg/dL AST 28 D (5-31) U/L ALT 19 (0-31) U/L Alkaline Phosphatase 51 (39-117) U/L Troponin I High Sens 59.1 H* (<3.5-17.0) ng/L B-Natriuretic Peptide (<100) pg/mL Total Protein 5.6 L (6.5-8.0) g/dL Albumin 3.2 L (3.5-5.0) g/dL Urine Color Urine Appearance Urine pH (5.0-8.0) Ur Specific [place] (1.005-1.025) Urine Protein (NEG-TRACE) MG/DL Urine Glucose (UA) (NEG) MG/DL Urine Ketones (NEG) MG/DL Urine Blood (NEG) Urine Nitrite (NEG) Ur Leukocyte Esterase (NEG) Urine RBC (0) /HPF Urine WBC (0-4) /HPF Ur Squamous Epith Cells /LPF Amorphous Sediment /LPF Urine Bacteria /LPF Hyaline Casts /LPF Urine Mucus /LPF COVID-19 ([facility]) (Negative) COVID-19 Clin Com 09/16/21 09/16/21 09/16/21 Range/Units 09:55 09:55 09:55 WBC (4.8-10.8) X10*3/uL RBC (4.20-5.50) X10*6/uL Hgb (12.0-16.0) g/dl Hct (37.0-47.0) % MCV (80.0-98.0) fL MCH (27.0-33.0) pg MCHC (31.0-35.0) g/dl RDW (11.0-16.0) % Plt Count (160-400) X10*3/uL MPV (9.4-12.3) fL Immature Gran % (Auto) Neut % (Auto) Lymph % (Auto) [place] % (Auto) Eos % (Auto) Baso % (Auto) Lymph # (Auto) [place] # (Auto) Eos # (Auto) Baso # (Auto) Abs Immat Gran (auto) Absolute Neuts (auto) Absolute Nucleated RBC (0.0-0.012) X10*3/uL Nucleated RBC % (auto) (0.0-0.2) /100WBC Neutrophils % (Manual) (45-73) % Band Neutrophils % (3-5) % Lymphocytes % (Manual) (20-40) % Monocytes % (Manual) (2-11) % Metamyelocytes % % Abs Neuts (Manual) (2.0-8.3) X10*3/uL Lymphocytes # (Manual) (1.2-4.9) X10*3/uL Monocytes # (Manual) (0.1-1.2) X10*3/uL Metamyelocytes # X10*3/uL Toxic Vacuolation Platelet Estimate (NORMAL) Large Platelets Plt Morphology Comment RBC Morphology VBG pH (7.32-7.43) VBG pCO2 mmHg VBG pO2 mmHg VBG HCO3 (22-26) mmol/L VBG O2 Saturation % VBG Base Excess mmol/L Sodium (135-145) mmol/L Potassium (3.3-5.1) mmol/L Chloride (96-108) mmol/L Carbon Dioxide (22-29) mmol/L Anion Gap (12-20) BUN (9-16) mg/dL Creatinine (0.5-1.4) mg/dL Estim Creat Clear Calc Estimated GFR Random Glucose (60-115) mg/dL Lactic Acid 1.6 (0.5-2.0) mmol/L Calcium (8.4-10.2) mg/dL Magnesium (1.6-2.6) mg/dL Total Bilirubin (0.0-1.0) mg/dL Direct Bilirubin (0.0-0.5) mg/dL AST (5-31) U/L ALT (0-31) U/L Alkaline Phosphatase (39-117) U/L Troponin I High Sens (<3.5-17.0) ng/L B-Natriuretic Peptide 644 H (<100) pg/mL Total Protein (6.5-8.0) g/dL Albumin (3.5-5.0) g/dL Urine Color Urine Appearance Urine pH (5.0-8.0) Ur Specific [place] (1.005-1.025) Urine Protein (NEG-TRACE) MG/DL Urine Glucose (UA) (NEG) MG/DL Urine Ketones (NEG) MG/DL Urine Blood (NEG) Urine Nitrite (NEG) Ur Leukocyte Esterase (NEG) Urine RBC (0) /HPF Urine WBC (0-4) /HPF Ur Squamous Epith Cells /LPF Amorphous Sediment /LPF Urine Bacteria /LPF Hyaline Casts /LPF Urine Mucus /LPF COVID-19 ([facility]) Positive A (Negative) COVID-19 Clin Com See Note 09/16/21 09/16/21 Range/Units 10:25 10:41 WBC (4.8-10.8) X10*3/uL RBC (4.20-5.50) X10*6/uL Hgb (12.0-16.0) g/dl Hct (37.0-47.0) % MCV (80.0-98.0) fL MCH (27.0-33.0) pg MCHC (31.0-35.0) g/dl RDW (11.0-16.0) % Plt Count (160-400) X10*3/uL MPV (9.4-12.3) fL Immature Gran % (Auto) Neut % (Auto) Lymph % (Auto) [place] % (Auto) Eos % (Auto) Baso % (Auto) Lymph # (Auto) [place] # (Auto) Eos # (Auto) Baso # (Auto) Abs Immat Gran (auto) Absolute Neuts (auto) Absolute Nucleated RBC (0.0-0.012) X10*3/uL Nucleated RBC % (auto) (0.0-0.2) /100WBC Neutrophils % (Manual) (45-73) % Band Neutrophils % (3-5) % Lymphocytes % (Manual) (20-40) % Monocytes % (Manual) (2-11) % Metamyelocytes % % Abs Neuts (Manual) (2.0-8.3) X10*3/uL Lymphocytes # (Manual) (1.2-4.9) X10*3/uL Monocytes # (Manual) (0.1-1.2) X10*3/uL Metamyelocytes # X10*3/uL Toxic Vacuolation Platelet Estimate (NORMAL) Large Platelets Plt Morphology Comment RBC Morphology VBG pH 7.54 H (7.32-7.43) VBG pCO2 28 mmHg VBG pO2 163 mmHg VBG HCO3 24 (22-26) mmol/L VBG O2 Saturation 100.0 % VBG Base Excess 3.5 mmol/L Sodium (135-145) mmol/L Potassium (3.3-5.1) mmol/L Chloride (96-108) mmol/L Carbon Dioxide (22-29) mmol/L Anion Gap (12-20) BUN (9-16) mg/dL Creatinine (0.5-1.4) mg/dL Estim Creat Clear Calc Estimated GFR Random Glucose (60-115) mg/dL Lactic Acid (0.5-2.0) mmol/L Calcium (8.4-10.2) mg/dL Magnesium (1.6-2.6) mg/dL Total Bilirubin (0.0-1.0) mg/dL Direct Bilirubin (0.0-0.5) mg/dL AST (5-31) U/L ALT (0-31) U/L Alkaline Phosphatase (39-117) U/L Troponin I High Sens (<3.5-17.0) ng/L B-Natriuretic Peptide (<100) pg/mL Total Protein (6.5-8.0) g/dL Albumin (3.5-5.0) g/dL Urine Color YELLOW Urine Appearance HAZY Urine pH 6.0 (5.0-8.0) Ur Specific [place] >= 1.030 H (1.005-1.025) Urine Protein 1+ H (NEG-TRACE) MG/DL Urine Glucose (UA) NEG (NEG) MG/DL Urine Ketones 5 (NEG) MG/DL Urine Blood TRACE (NEG) Urine Nitrite NEG (NEG) Ur Leukocyte Esterase NEG (NEG) Urine RBC 0-2 (0) /HPF Urine WBC 0 (0-4) /HPF Ur Squamous Epith Cells NONE /LPF Amorphous Sediment 2+ /LPF Urine Bacteria 1+ /LPF Hyaline Casts 0-2 /LPF Urine Mucus 1+ /LPF COVID-19 ([facility]) (Negative) COVID-19 Clin Com Critical Care Time Critical Care Time Critical Care Time: Yes Total Critical Care Time: 60 Attestation: I have personally provided critical care time. Time includes review of lab data, radiology results, discussion with consultants, and monitoring for potential decompensation. Intervention performed as documented. Discharge Plan Discharge Clinical Impression: COVID-19 Patient Disposition: Admitted As Inpatient
[2021-09-16 10:05] LABS: Hemoglobin 13.4 g/dl (12.0-16.0); Mean Corpuscular Hemoglobin 29.8 pg (27.0-33.0); PLT CLUMP 1
[2021-09-16 10:06] LABS: Hematocrit 39.6 % (37.0-47.0); Mean Corpuscular HGB Conc 33.8 g/dl (31.0-35.0); Mean Corpuscular Volume 88.2 fL (80.0-98.0); Red Blood Count 4.49 X10*6/uL (4.20-5.50); Red Cell Distribution Width 14.9 % (11.0-16.0)
[2021-09-16 10:08] LABS: COVID-19 Test Positive (Negative); WBC ABN SCTR FOR CBC 1
[2021-09-16 10:14] LABS: Lactic Acid 1.6 mmol/L (0.5-2.0)
[2021-09-16 10:24] LABS: B Type Natriuretic Peptide 644 pg/mL (<100)
[2021-09-16 10:30] LABS: Troponin-I High Sensitivity 59.1 ng/L (<3.5-17.0)
[2021-09-16] MEDS: dexAMETHasone sod phosphate 4 MG/ML VIAL 6 MG IVPUSH (10:32)
[2021-09-16] MEDS: Acetaminophen Supp 650 MG SUPP.RECT PR (10:32)
[2021-09-16 10:38] LABS: Alanine Aminotransferase 19 U/L (0-31); Albumin Level 3.2 g/dL (3.5-5.0); Alkaline Phosphatase 51 U/L (39-117); Anion Gap 14 (12-20); Aspartate Amino Transferase 28 U/L (5-31); Bilirubin Direct 0.3 mg/dL (0.0-0.5); Bilirubin Total 0.6 mg/dL (0.0-1.0); Blood Urea Nitrogen 16 mg/dL (9-16); Calcium 8.2 mg/dL (8.4-10.2); Carbon Dioxide 25 mmol/L (22-29); Chloride 97 mmol/L (96-108); Creatinine Clr Calc Pharmacy 32.4; Estimated Glomerular Filt Rate > 60; Glucose Random 91 mg/dL (60-115); Magnesium 1.7 mg/dL (1.6-2.6); Potassium 3.7 mmol/L (3.3-5.1); Sodium 132 mmol/L (135-145); Total Protein 5.6 g/dL (6.5-8.0)
[2021-09-16 10:39] LABS: Band Neutrophils Percent 49 % (3-5); Lymphocytes Percent Manual 4 % (20-40); Metamyelocytes Percent 6 %; Monocytes Percent Manual 2 % (2-11); Neutrophils Percent Manual 39 % (45-73); Toxic Vacuolation PRESENT
[2021-09-16 10:43] LABS: RBC Morphology NORMAL
[2021-09-16 10:44] LABS: Large Platelet PRESENT; Platelet Estimate DECREASED (NORMAL); Platelet Morphology Comment NOTED
[2021-09-16] MEDS: levoFLOXacin/D5W 500 MG/100 ML PIGGYBACK 100 MG IV (10:44)
[2021-09-16 10:45] LABS: Lymphocytes Absolute Manual 0.3 X10*3/uL (1.2-4.9); Mean Platelet Volume 10.3 fL (9.4-12.3); Metamyelocytes Absolute 0.5 X10*3/uL; Monocytes Absolute Manual 0.2 X10*3/uL (0.1-1.2); Neutrophils Absolute Manual 6.6 X10*3/uL (2.0-8.3); Platelet Count 88 X10*3/uL (160-400); White Blood Count 7.5 X10*3/uL (4.8-10.8)
[2021-09-16 10:47] LABS: Venous Blood Gas Refer to POC result
[2021-09-16 10:47] LABS: VBG Base Excess 3.5 mmol/L; VBG HCO3 24 mmol/L (22-26); VBG pCO2 28 mmHg; VBG pH 7.54 (7.32-7.43); VBG pO2 163 mmHg
[2021-09-16 10:52] LABS: Appearance Urine HAZY; Color Urine YELLOW; Glucose Urine UA NEG (NEG); Leukocyte Esterase Urine NEG (NEG); Nitrite Urine NEG (NEG); Specific Gravity - Urine >= 1.030 (1.005-1.025); UACC Culture Trigger NO; Urine Blood TRACE (NEG); Urine Ketones 5 MG/DL (NEG); Urine Protein 1+ MG/DL (NEG-TRACE)
[2021-09-16 11:10] LABS: RBC Urine 0-2 /HPF (0); WBC Urine 0 /HPF (0-4)
[2021-09-16 11:13] LABS: Amorphous Sediment Urine 2+ /LPF; Bacteria Urine 1+ /LPF; Hyaline Casts Urine 0-2 /LPF; Mucus Urine 1+ /LPF
[2021-09-16] MEDS: iohexoL 350 MG/ML 100 ML INFUS..BTL 65 ML IV (12:30)
[2021-09-16] MEDS: iohexoL 350 MG/ML 100 ML INFUS..BTL IV (13:12)
--- NOTE | 2021-09-16 15:10 | MHC.CM.ED ---
Received case management consult from Dr Geronimo. Patient is active with hospice but came to ER due to shortness of breath. Patient found to be Covid positive. Patient has been active with [facility]. Patient and HCP have decided that they want to revoke hospice and get treat Covid. Continue to monitor for d/c needs.
[2021-09-16 16:04] LABS: C Reactive Protein 19.17 mg/dL (< or = 0.50); Lactate Dehydrogenase 204 U/L (122-220)
[2021-09-16 16:24] LABS: Alanine Aminotransferase 18 U/L (0-31); Alkaline Phosphatase 51 U/L (39-117); Anion Gap 11 (12-20); Aspartate Amino Transferase 28 U/L (5-31); Bilirubin Total 0.6 mg/dL (0.0-1.0); Blood Urea Nitrogen 14 mg/dL (9-16); Carbon Dioxide 27 mmol/L (22-29); Chloride 99 mmol/L (96-108); Creatinine Clr Calc Pharmacy 36.5; Estimated Glomerular Filt Rate > 60; Glucose Random 112 mg/dL (60-115); Potassium 4.2 mmol/L (3.3-5.1); Sodium 133 mmol/L (135-145); Total Protein 5.4 g/dL (6.5-8.0)
--- NOTE | 2021-09-16 16:42 | P.HPHOSP_ITS ---
History of Present Illness Date of Service: 09/16/21 Attending physician on admission: Estevan Calvillo Chief Complaint: shortness of breath This is an 86-year-old female who presents to the emergency department today with shortness of breath. Patient has been on hospice since May 2021 for ?heart issues.? Sunday she began having weakness shortness of breath and dry cough. Today she was in respiratory distress and requested to come to the emergency department for evaluation. On arrival she was febrile with a temperature of 102.1 degrees, tachypneic with a respiratory rate in the high 20s and was placed on a non-rebreather and eventually high-flow nasal cannula. She underwent CTA which showed left lower lobe collapse as well as scattered ground- glass opacification. She tested positive for COVID-19. Patient has not been vaccinated against COVID-19. GIP hospice was discussed with the patient but she and her healthcare proxy at the bedside decided that she wanted treatment against COVID-19 and therfore she will be admitted to the hospital for further management. Review of Systems Review of Systems: Yes all other systems are reviewed and are negative Constitutional: Constitutional: Denies chills, Reports fever(s), Denies le thargy and Reports weakness Cardiovascular: Cardiovascular: Denies chest pain and Reports dyspnea Respiratory: Respiratory: Reports cough and Reports dyspnea Neurologic: Reports weakness [facility] Medical History Arterial hypotension C. difficile colitis Coronary artery disease Dizziness Glaucoma History of pulmonary embolism Hypercholesterolemia Hypertension Irritable bowel syndrome Nodule of neck Pacemaker PAF (paroxysmal atrial fibrillation) Peripheral neuropathy Post concussive syndrome Protein S deficiency Sick sinus syndrome Stress incontinence Functional capacity: uses cane/walker Family History Father Heart disease Stroke Mother Heart disease Sister Breast cancer Brother Heart disease Sister Breast cancer Surgical History H/O breast surgery History of appendectomy History of D&C History of eye surgery History of hemorrhoidectomy History of hip replacement History of pacemaker History of tonsillectomy and adenoidectomy History of total abdominal hysterectomy and bilateral salpingo-oophorectomy Presence of IVC filter Social History Household Members: Spouse Housing: House Are you a primary foster care worker to a significant other at home: Yes () Do you presently have visiting nurse or other home services: Yes ([employer], PT, OT, VNA) Alcohol intake: never Patient Tobacco Use Status: Never used Tobacco Use of substances other than those prescribed or required for medical reasons: No Advance Directives: Yes Advance Directives on File: Yes Advance Directives Date on File: 09/16/20 service: No Current occupational status: retired Meds Allergies Allergy/AdvReac Type Severity Reaction Status Date / Time doxycycline [Doxycycline] Allergy Severe DIFF Verified 05/12/21 14:28 BREATHING Penicillins Allergy Severe DIFF Verified 05/12/21 14:28 BREATHING tetracycline [Tetracycline] Allergy Severe DIFF Verified 05/12/21 14:28 BREATHING codeine [Codeine] Allergy Intermediate VOMITING Verified 05/12/21 14:28 oxycodone [From PERCOCET] AdvReac Intermediate VOMITING Verified 05/12/21 14:28 Peppers, Green AdvReac Intermediate Vomiting Verified 05/12/21 14:28 epinephrine Allergy Intermediate heart Uncoded 03/17/21 15:24 racing From Novocain Allergy Intermediate LOWERED BP Uncoded 03/17/21 15:24 - OK IF IT DOES NOT HAVE EPINEPHRINE IN IT toro for MIBI Allergy Unknown headache Uncoded 02/21/21 14:39 most antibiotics Allergy Unknown Unknown Uncoded 02/21/21 14:39 Pt states she CAN take Emycin Allergy Unknown Unknown Uncoded 02/21/21 14:39 Active Medications: Current Medications Acetaminophen (Acetaminophen 325 Mg Tablet) 650 mg PO Q6H PRN PRN Reason: Pain, Mild (Pain Scale 1-3) Dexamethasone Sodium Phosphate (Dexamethasone Sod Phosphate 4 Mg/Ml Vial) 6 mg IVPUSH DAILY ONE Stop: 09/17/21 09:01 Docusate Sodium (Docusate Sodium 100 Mg Capsule) 100 mg PO DAILY PRN PRN Reason: Constipation Remdesivir 200 mg/ Sodium (Chloride) 210 mls @ 105 mls/hr IV ONCE ONE Stop: 09/16/21 19:59 Remdesivir 100 mg/ Sodium (Chloride) 230 mls @ 115 mls/hr IV Q24H KASSIDY Stop: 09/20/21 19:59 Pharmacy Consult (Consult Rx Perform Med Rec) 1 each MISCELLANE ONCE PRN PRN Reason: Consult order Sodium Chloride (0.9 % Sodium Chloride Flush 3 Ml Syringe) [facility] Home Medications Medication Instructions Recorded Confirmed Last Taken Type timolol maleate 0.5 % eye drops 1 drp OPHTHALMIC (EYE) QAM 12/09/20 09/16/21 09/15/21 History Lactobacillus rhamnosus GG 10 1 cap PO DAILY 03/17/21 09/16/21 09/15/21 History billion cell capsule (Culturelle) ascorbic acid (vitamin C) 1,000 mg 1,000 mg PO DAILY 03/17/21 09/16/21 09/15/21 History tablet,extended release (Vitamin C ER) cholecalciferol (vitamin D3) 50 50 mcg PO DAILY 03/17/21 09/16/21 09/15/21 History mcg (2,000 unit) capsule (Vitamin D3) ferrous sulfate 324 mg (65 mg 324 mg PO DAILY 03/17/21 09/16/21 09/15/21 History iron) tablet,delayed release azithromycin 250 mg tablet 1 tab PO DIRECTED 09/16/21 09/16/21 09/15/21 History Physical Exam Vital Signs and Narrative: Vital Signs: Last Vital Signs Temp 97.6 F 09/16/21 14:25 Pulse 83 09/16/21 14:25 Resp 19 09/16/21 15:13 BP 137/79 09/16/21 14:25 Pulse Ox 100 09/16/21 14:25 BMI result Body Mass Index 14.1 Const: Other: appears comfortable, no respiratory distress General: alert, awake and lethargic Nutritional Appearance: thin Orientation/consciousness: lethargic Resp: Effort & Inspection: normal respiratory effort and able to speak in complete sentences Cardio: Rate: regular rate Heart sounds: S1 normal heart sound present and S2 normal heart sound present GI: Inspection: No distended Palpation (GI): Soft to palpation Extrem: Other: moving all 4 extremities spontaneously General: Yes no pedal edema Results Labs CBC and Chem 7: 09/16/21 09:55 09/16/21 15:57 Labs: Laboratory Results - last 24 hr 09/16/21 09/16/21 09/16/21 09:55 09:55 09:55 MCV 88.2 MCH 29.8 MCHC 33.8 RDW 14.9 Plt Count 88 L MPV 10.3 Immature Gran % (Auto) Cancelled Neut % (Auto) Cancelled Lymph % (Auto) Cancelled [place] % (Auto) Cancelled Eos % (Auto) Cancelled Baso % (Auto) Cancelled Lymph # (Auto) Cancelled [place] # (Auto) Cancelled Eos # (Auto) Cancelled Baso # (Auto) Cancelled Abs Immat Gran (auto) Cancelled Absolute Neuts (auto) Cancelled Absolute Nucleated RBC 0.000 Nucleated RBC % (auto) 0.0 Neutrophils % (Manual) 39 L Band Neutrophils % 49 H Lymphocytes % (Manual) 4 L Monocytes % (Manual) 2 Metamyelocytes % 6 Abs Neuts (Manual) 6.6 Lymphocytes # (Manual) 0.3 L Monocytes # (Manual) 0.2 Metamyelocytes # 0.5 Toxic Vacuolation PRESENT Platelet Estimate DECREASED Large Platelets PRESENT Plt Morphology Comment NOTED RBC Morphology NORMAL VBG pH VBG pCO2 VBG pO2 VBG HCO3 VBG O2 Saturation VBG Base Excess Anion Gap 14 Estim Creat Clear Calc 32.4 Estimated GFR > 60 Random Glucose 91 Lactic Acid Calcium 8.2 L D Magnesium 1.7 Total Bilirubin 0.6 Direct Bilirubin 0.3 AST 28 D ALT 19 Alkaline Phosphatase 51 Lactate Dehydrogenase 204 Troponin I High Sens 59.1 H* C-Reactive Protein 19.17 H B-Natriuretic Peptide Total Protein 5.6 L Albumin 3.2 L Urine Color Urine Appearance Urine pH Ur Specific [place] Urine Protein Urine Glucose (UA) Urine Ketones Urine Blood Urine Nitrite Ur Leukocyte Esterase Urine RBC Urine WBC Ur Squamous Epith Cells Amorphous Sediment Urine Bacteria Hyaline Casts Urine Mucus COVID-19 ([facility]) COVID-19 Clin Com 09/16/21 09/16/21 09/16/21 09:55 09:55 09:55 MCV MCH MCHC RDW Plt Count MPV Immature Gran % (Auto) Neut % (Auto) Lymph % (Auto) [place] % (Auto) Eos % (Auto) Baso % (Auto) Lymph # (Auto) [place] # (Auto) Eos # (Auto) Baso # (Auto) Abs Immat Gran (auto) Absolute Neuts (auto) Absolute Nucleated RBC Nucleated RBC % (auto) Neutrophils % (Manual) Band Neutrophils % Lymphocytes % (Manual) Monocytes % (Manual) Metamyelocytes % Abs Neuts (Manual) Lymphocytes # (Manual) Monocytes # (Manual) Metamyelocytes # Toxic Vacuolation Platelet Estimate Large Platelets Plt Morphology Comment RBC Morphology VBG pH VBG pCO2 VBG pO2 VBG HCO3 VBG O2 Saturation VBG Base Excess Anion Gap Estim Creat Clear Calc Estimated GFR Random Glucose Lactic Acid 1.6 Calcium Magnesium Total Bilirubin Direct Bilirubin AST ALT Alkaline Phosphatase Lactate Dehydrogenase Troponin I High Sens C-Reactive Protein B-Natriuretic Peptide 644 H Total Protein Albumin Urine Color Urine Appearance Urine pH Ur Specific [place] Urine Protein Urine Glucose (UA) Urine Ketones Urine Blood Urine Nitrite Ur Leukocyte Esterase Urine RBC Urine WBC Ur Squamous Epith Cells Amorphous Sediment Urine Bacteria Hyaline Casts Urine Mucus COVID-19 (ERIS) Positive A COVID-19 Clin Com See Note 09/16/21 09/16/21 09/16/21 10:25 10:41 15:57 MCV MCH MCHC RDW Plt Count MPV Immature Gran % (Auto) Neut % (Auto) Lymph % (Auto) [place] % (Auto) Eos % (Auto) Baso % (Auto) Lymph # (Auto) [place] # (Auto) Eos # (Auto) Baso # (Auto) Abs Immat Gran (auto) Absolute Neuts (auto) Absolute Nucleated RBC Nucleated RBC % (auto) Neutrophils % (Manual) Band Neutrophils % Lymphocytes % (Manual) Monocytes % (Manual) Metamyelocytes % Abs Neuts (Manual) Lymphocytes # (Manual) Monocytes # (Manual) Metamyelocytes # Toxic Vacuolation Platelet Estimate Large Platelets Plt Morphology Comment RBC Morphology VBG pH 7.54 H VBG pCO2 28 VBG pO2 163 VBG HCO3 24 VBG O2 Saturation 100.0 VBG Base Excess 3.5 Anion Gap 11 L Estim Creat Clear Calc 36.5 Estimated GFR > 60 Random Glucose 112 Lactic Acid Calcium 8.0 L Magnesium Total Bilirubin 0.6 Direct Bilirubin AST 28 ALT 18 Alkaline Phosphatase 51 Lactate Dehydrogenase Troponin I High Sens C-Reactive Protein B-Natriuretic Peptide Total Protein 5.4 L Albumin 3.0 L Urine Color YELLOW Urine Appearance HAZY Urine pH 6.0 Ur Specific [place] >= 1.030 H Urine Protein 1+ H Urine Glucose (UA) NEG Urine Ketones 5 Urine Blood TRACE Urine Nitrite NEG Ur Leukocyte Esterase NEG Urine RBC 0-2 Urine WBC 0 Ur Squamous Epith Cells NONE Amorphous Sediment 2+ Urine Bacteria 1+ Hyaline Casts 0-2 Urine Mucus 1+ COVID-19 ([facility]) COVID-19 Clin Com 09/16/21 15:57 MCV MCH MCHC RDW Plt Count MPV Immature Gran % (Auto) Neut % (Auto) Lymph % (Auto) [place] % (Auto) Eos % (Auto) Baso % (Auto) Lymph # (Auto) [place] # (Auto) Eos # (Auto) Baso # (Auto) Abs Immat Gran (auto) Absolute Neuts (auto) Absolute Nucleated RBC Nucleated RBC % (auto) Neutrophils % (Manual) Band Neutrophils % Lymphocytes % (Manual) Monocytes % (Manual) Metamyelocytes % Abs Neuts (Manual) Lymphocytes # (Manual) Monocytes # (Manual) Metamyelocytes # Toxic Vacuolation Platelet Estimate Large Platelets Plt Morphology Comment RBC Morphology VBG pH VBG pCO2 VBG pO2 VBG HCO3 VBG O2 Saturation VBG Base Excess Anion Gap Estim Creat Clear Calc Estimated GFR Random Glucose Lactic Acid Calcium Magnesium Total Bilirubin Direct Bilirubin AST ALT Alkaline Phosphatase Lactate Dehydrogenase Troponin I High Sens 54.0 H* C-Reactive Protein B-Natriuretic Peptide Total Protein Albumin Urine Color Urine Appearance Urine pH Ur Specific [place] Urine Protein Urine Glucose (UA) Urine Ketones Urine Blood Urine Nitrite Ur Leukocyte Esterase Urine RBC Urine WBC Ur Squamous Epith Cells Amorphous Sediment Urine Bacteria Hyaline Casts Urine Mucus COVID-19 ([facility]) COVID-19 Clin Com Imaging Radiologist's Impressions: Impressions Chest X-Ray 09/16/21 10:50 IMPRESSION: No acute cardiopulmonary process. Chest CTA 09/16/21 13:10 IMPRESSION: 1. No pulmonary embolism. 2. Left lower lobe collapse. Bronchial filling defect could represent mucous plugging. 3. Dependent consolidation of the right lower lobe with air bronchograms could be atelectasis or pneumonia. Additional scattered groundglass opacification may be infectious or inflammatory. VTE: negative Assessment and Plan (1) COVID-19: Status: Acute (2) Acute respiratory failure with hypoxia: Status: Acute Plan This is an 86-year-old female history of protein S deficiency on lifelong anticoagulation, PE, atrial fibrillation, CAD, history of intracranial bleed, on hospice since May 2021 who presents to the emergency department with respiratory distress found to be COVID positive Acute respiratory failure with hypoxia secondary to COVID-19 symptomatic for 2 days, unvaccinated Continue high-flow oxygen, wean as tolerated Follow inflammatory markers Pulmonary consult IV Decadron Remdesivir Thrombocytopenia possible related to viral illness. no recent baseline follow cbc elevated trops no chest pain, trops flat likely secondary to demand from hypoxia Chronic HFpEF BNP 644 clinically does not apper to be in heart failure PAF in sinus continue metoprolol, flecainide continue AC with Eliquis HLD continue statin h/o protein s deficiency continue Eliquis probably moderate protein calorie malnutrition BMI 14.4, albumin low will add supplements formal nutrition consult pending dvt ppx - Eiquis code status - dnr/dni attending - dr. hernandez Quality Stroke Does the patient have a stroke diagnosis?: No VTE Prior VTE?: Yes VTE Risk Level:: Medical - moderate - high VTE Device Contraindication: N/A - Device Ordered VTE Drug Contraindication: N/A - Med Ordered
[2021-09-16] MEDS: Remdesivir 200 MG in 0.9 % Sodium Chloride 210 ML 105 MG IV (16:59)
--- NOTE | 2021-09-16 17:04 | PHA.MEDREC ---
Pharmacy Consult ? Medication Reconciliation Pharmacy has completed the medication reconciliation. Spoke with pt and caregiver. Yesterday 09/15/21 the visiting nurse started her on Azithromycin and Prednisone. She only had her 2 tabs of azithromycin yesterday, none today, and no prednisone at all yesterday or today. She last took her other meds yesterday.
[2021-09-16 17:09] LABS: Ferritin 1809 ng/mL (10-250)
--- NOTE | 2021-09-16 18:09 | MHC.CM.PN ---
CM met with patient and son, Lee Paredes ([phone]),who is the new HCP/POA. Forms obtained and scanned into [facility] and [facility]. Pt was in hospice for CHF with [facility]. Pt is COVID+. Pt and family have chosen to treat the Covid and will resume Hospice when discharged. [facility] aware. Pt lives at home with and son. Family is caring for pt. Had hospice, but no other services. Pt has a rollator walker. D/C plan: resume hospice. May need transportation home if pt is not mobile. CM will follow for d/c needs.
--- NOTE | 2021-09-16 20:35 | PC.NURSE ---
Pt resting on stretcher in NAD, breathing with ease on HFNC, VSS. Pt aaox4, pt c/o sore throat. Pt offers no additional complaints/concerns. pt aware and agreeable to plan for admission for covid pna.
--- NOTE | 2021-09-16 22:28 | PC.NURSE ---
RT aware that patient is ready for transport to 4th floor, awaiting their arrival at this time.
[2021-09-16] MEDS: Flecainide Acetate 50 MG TABLET PO (22:55)
[2021-09-16] MEDS: 0.9 % Sodium Chloride Flush 3 ML SYRINGE IVFLUSH (22:56)
[2021-09-16] MEDS: Atorvastatin Calcium 10 MG TABLET PO (22:56)
[2021-09-16] MEDS: Apixaban 2.5 MG TABLET PO (22:56)
[2021-09-17] VITALS (14 sets, daily range): BP systolic 100–187; BP diastolic 67–111; PULSE 60–108; RESP 12–20; TEMP 36.4–37.1; O2SAT 96–99
[2021-09-17] MEDS: Acetaminophen 325 MG TABLET 650 MG PO ×2 (03:11→12:21)
[2021-09-17 07:09] LABS: Hemoglobin 14.9 g/dl (12.0-16.0); PLT CLUMP 1
[2021-09-17 07:11] LABS: Hematocrit 44.5 % (37.0-47.0); Mean Corpuscular HGB Conc 33.5 g/dl (31.0-35.0); Mean Corpuscular Hemoglobin 29.4 pg (27.0-33.0); Mean Corpuscular Volume 87.8 fL (80.0-98.0); Red Blood Count 5.07 X10*6/uL (4.20-5.50); Red Cell Distribution Width 14.8 % (11.0-16.0)
[2021-09-17 07:23] LABS: Platelet Count 82 X10*3/uL (160-400); White Blood Count 9.2 X10*3/uL (4.8-10.8)
[2021-09-17 07:48] LABS: Anion Gap 14 (12-20); Blood Urea Nitrogen 21 mg/dL (9-16); Calcium 8.5 mg/dL (8.4-10.2); Carbon Dioxide 25 mmol/L (22-29); Chloride 100 mmol/L (96-108); Creatinine Clr Calc Pharmacy 39.1; Estimated Glomerular Filt Rate > 60; Glucose Random 103 mg/dL (60-115); Potassium 4.1 mmol/L (3.3-5.1); Sodium 135 mmol/L (135-145)
[2021-09-17] MEDS: Cholecalciferol (Vitamin D3) 25 MCG TABLET 50 MCG PO (09:23)
[2021-09-17] MEDS: Metoprolol Succinate ER 25 MG TAB.ER.24H PO (09:24)
[2021-09-17] MEDS: Flecainide Acetate 50 MG TABLET PO ×2 (09:24→20:32)
[2021-09-17] MEDS: Apixaban 2.5 MG TABLET PO ×2 (09:24→20:31)
[2021-09-17] MEDS: 0.9 % Sodium Chloride Flush 3 ML SYRINGE IVFLUSH ×2 (09:24→16:00)
[2021-09-17] MEDS: dexAMETHasone sod phosphate 4 MG/ML VIAL 6 MG IVPUSH (09:24)
[2021-09-17] MEDS: Ferrous Sulfate 324 MG TABLET.DR PO (09:25)
--- NOTE | 2021-09-17 11:20 | P.CONPL_ITS ---
History of Present Illness History of Present Illness Consult date: 09/17/21 Chief complaint: covid 19, respiratory failure Narrative: This is an inpt pulmonary consultation. The patient is an 86-year-old female who presents to the emergency department today with shortness of breath.? Patient has been on hospice since May 2021 for ?heart issues.?? Sunday she began having weakness shortness of breath and dry cough.? Today she was in respiratory distress and requested to come to the emergency department for evaluation.? On arrival she was febrile with a temperature of 102.1 degrees, tachypneic with a respiratory rate in the high 20s and was placed on a non-rebreather and natalya ntually high-flow nasal cannula.? She underwent CTA which showed left lower lobe collapse as well as scattered ground-glass opacification.? She tested positive for COVID-19.? Patient has not been vaccinated against COVID-19.? GIP hospice was discussed with the patient but she and her healthcare proxy at the bedside decided that she wanted treatment against COVID-19 and therfore she will be admitted to the hospital for further management. Currently, she is on HF. I personally reviewed her CT chest demonstrating significant LLL pneumonia and atelectasis with obstruction of the proximal LLL bronchus. Review of Systems Review of Systems: Yes all other systems are reviewed and are negative Constitutional: Constitutional: Denies chills, Reports fever(s), Denies lethargy and Reports weakness ENT: Reports sore throat Cardiovascular: Cardiovascular: Denies chest pain and Reports dyspnea Respiratory: Respiratory: Reports cough and Reports dyspnea Neurologic: Reports weakness PMFSH Past Medical History Medical History (Updated 09/17/21 @ 11:24 by Magen Soliman MD) Arterial hypotension Atelectasis C. difficile colitis Coronary artery disease Dizziness Glaucoma History of pulmonary embolism Hypercholesterolemia Hypertension Irritable bowel syndrome Nodule of neck Pacemaker PAF (paroxysmal atrial fibrillation) Peripheral neuropathy Pneumonia Post concussive syndrome Protein S deficiency Sick sinus syndrome Stress incontinence Functional capacity: uses cane/walker Family History Family History Father Heart disease Stroke Mother Heart disease Sister Breast cancer Brother Heart disease Sister Breast cancer Surgical History Surgical History H/O breast surgery History of appendectomy History of D&C History of eye surgery History of hemorrhoidectomy History of hip replacement History of pacemaker History of tonsillectomy and adenoidectomy History of total abdominal hysterectomy and bilateral salpingo-oophorectomy Presence of IVC filter Social History Social History Household Members: Spouse Housing: House Are you a primary customer care team coach to a significant other at home: Yes () Do you presently have visiting nurse or other home services: Yes (MAINTENANCE AND REPAIR WORKER, PT, OT, VNA) Alcohol intake: never Patient Tobacco Use Status: Never used Tobacco Use of substances other than those prescribed or required for medical reasons: No Currently Displaying Signs/Symptoms of Drug Intoxication Withdrawal: No Have you been hit, kicked, punched, or otherwise hurt by someone within the past year? If so, by whom?: No Do you feel safe in your current relationship?: Yes Is there a partner from a previous relationship who is making you feel unsafe now?: No Are you made to feel afraid or neglected: No Advance Directives: Yes Advance Directives on File: Yes Advance Directives Date on File: 09/16/20 Do you have thoughts of harming others: None Do you have a plan to hurt others: No Plan Recently lost weight without trying: Unsure Nutrition Risks: Difficulty chewing and Difficulty swallowing Patient : No : No Poor oral hygiene: No service: No Current occupational status: retired Meds Allergies Allergy/AdvReac Type Severity Reaction Status Date / Time doxycycline [Doxycycline] Allergy Severe DIFF Verified 05/12/21 14:28 BREATHING Penicillins Allergy Severe DIFF Verified 05/12/21 14:28 BREATHING tetracycline [Tetracycline] Allergy Severe DIFF Verified 05/12/21 14:28 BREATHING codeine [Codeine] Allergy Intermediate VOMITING Verified 05/12/21 14:28 oxycodone [From PERCOCET] AdvReac Intermediate VOMITING Verified 05/12/21 14:28 Peppers, Green AdvReac Intermediate Vomiting Verified 05/12/21 14:28 epinephrine Allergy Intermediate heart Uncoded 03/17/21 15:24 racing From Novocain Allergy Intermediate LOWERED BP Uncoded 03/17/21 15:24 - OK IF IT DOES NOT HAVE EPINEPHRINE IN IT toro for MIBI Allergy Unknown headache Uncoded 02/21/21 14:39 most antibiotics Allergy Unknown Unknown Uncoded 02/21/21 14:39 Pt states she CAN take Emycin Allergy Unknown Unknown Uncoded 02/21/21 14:39 Active Medications: Current Medications Acetaminophen (Acetaminophen 325 Mg Tablet) 650 mg PO Q6H PRN PRN Reason: Pain, Mild (Pain Scale 1-3) Last Admin: 09/17/21 03:11 Dose: 650 mg Documented by: Apixaban (Apixaban 2.5 Mg Tablet) 2.5 mg PO BID [facility] Last Admin: 09/17/21 09:24 Dose: 2.5 mg Documented by: Atorvastatin Calcium (Atorvastatin Calcium 10 Mg Tablet) 10 mg PO BEDTIME [facility] Last Admin: 09/16/21 22:56 Dose: 10 mg Documented by: Benzocaine (Throat Lozenge, Medicated Lozenge) 1 lozenge MUCOUS MEM Q2H PRN PRN Reason: Sore Throat Dexamethasone Sodium Phosphate (Dexamethasone Sod Phosphate 4 Mg/Ml Vial) 6 mg IVPUSH DAILY [facility] Last Admin: 09/17/21 09:24 Dose: 6 mg Documented by: Docusate Sodium (Docusate Sodium 100 Mg Capsule) 100 mg PO DAILY PRN PRN Reason: Constipation Ferrous Sulfate (Ferrous Sulfate 324 Mg Tablet.Dr) 324 mg PO DAILY [facility] Last Admin: 09/17/21 09:25 Dose: 324 mg Documented by: Flecainide Acetate (Flecainide Acetate 50 Mg Tablet) 50 mg PO BID [facility] Last Admin: 09/17/21 09:24 Dose: 50 mg Documented by: Remdesivir 100 mg/ Sodium (Chloride) 230 mls @ 115 mls/hr IV Q24H [facility] Stop: 09/20/21 19:59 Metoprolol Succinate (Metoprolol Succinate Er 25 Mg Tab.Er.24h) 25 mg PO DAILY [facility]; Protocol Last Admin: 09/17/21 09:24 Dose: 25 mg Documented by: Multi-Ingred Medicated Throat [place] (Throat [place], Medicated 20 Ml Bottle) 1 spray MUCOUS MEM Q2H PRN PRN Reason: Sore Throat Pharmacy Consult (Consult Rx Perform Med Rec) 1 each MISCELLANE ONCE PRN PRN Reason: Consult order Sodium Chloride (0.9 % Sodium Chloride Flush 3 Ml Syringe) 3 ml IVFLUSH QSHIFT [facility] Last Admin: 09/17/21 09:24 Dose: 3 ml Documented by: Timolol Maleate (Timolol Maleate 0.5 % Oph Luz Elena 5 Ml Drbtl) 1 drop EYE-BOTH [place] [facility] Vitamin D (Cholecalciferol (Vitamin D3) 25 Mcg Tablet) 50 mcg PO DAILY [facility] Last Admin: 09/17/21 09:23 Dose: 50 mcg Documented by: Home Medications Medication Instructions Recorded Confirmed Last Taken Type timolol maleate 0.5 % eye drops 1 drp OPHTHALMIC (EYE) QAM 12/09/20 09/16/21 09/15/21 History Lactobacillus rhamnosus GG 10 1 cap PO DAILY 03/17/21 09/16/21 09/15/21 History billion cell capsule (Culturelle) ascorbic acid (vitamin C) 1,000 mg 1,000 mg PO DAILY 03/17/21 09/16/21 09/15/21 History tablet,extended release (Vitamin C ER) cholecalciferol (vitamin D3) 50 50 mcg PO DAILY 03/17/21 09/16/21 09/15/21 History mcg (2,000 unit) capsule (Vitamin D3) ferrous sulfate 324 mg (65 mg 324 mg PO DAILY 03/17/21 09/16/21 09/15/21 History iron) tablet,delayed release azithromycin 250 mg tablet 1 tab PO DIRECTED 09/16/21 09/16/21 09/15/21 History Physical Exam Vital Signs: Vital Signs: Last Vital Signs Temp 98.5 F 09/17/21 08:00 Pulse 108 H 09/17/21 08:00 Resp 16 09/17/21 11:18 BP 119/76 09/17/21 08:00 Pulse Ox 97 09/17/21 08:00 BMI result Body Mass Index 15.7 Const: General: alert Neck: Neck: Yes normal visual inspection, Yes full ROM and Yes no lymphadenopathy Chest: Chest palpation & inspection: normal inspection of the chest Resp: Effort & Inspection: normal respiratory effort, no audible wheezes and not labored Cardio: Jugular venous distension: no JVD Rate: regular rate Rhythm: regular rhythm GI: Inspection: Yes normal to inspection Auscultation: normal bowel sounds Skin: General skin exam: rashes and/or lesions noted Results Laboratory Findings CBC and BMP: 09/18/21 05:35 09/18/21 05:35 Abnormal lab findings: Abnormal Labs 04/01/3009/16/21 09/16/21 09:55 09:55 09:55 Plt Count 88 L Neutrophils % (Manual) 39 L Band Neutrophils % 49 H Lymphocytes % (Manual) 4 L Lymphocytes # (Manual) 0.3 L VBG pH Sodium 132 L Anion Gap BUN Calcium 8.2 L D Ferritin 1809 H Troponin I High Sens 59.1 H* C-Reactive Protein 19.17 H B-Natriuretic Peptide Total Protein 5.6 L Albumin 3.2 L Ur Specific [place] Urine Protein COVID-19 ([facility]) 09/16/21 09/16/21 09/16/21 09:55 09:55 10:25 Plt Count Neutrophils % (Manual) Band Neutrophils % Lymphocytes % (Manual) Lymphocytes # (Manual) VBG pH Sodium Anion Gap BUN Calcium Ferritin Troponin I High Sens C-Reactive Protein B-Natriuretic Peptide 644 H Total Protein Albumin Ur Specific [place] >= 1.030 H Urine Protein 1+ H COVID-19 ([facility]) Positive A 09/16/21 09/16/21 09/16/21 10:41 15:57 15:57 Plt Count Neutrophils % (Manual) Band Neutrophils % Lymphocytes % (Manual) Lymphocytes # (Manual) VBG pH 7.54 H Sodium 133 L Anion Gap 11 L BUN Calcium 8.0 L Ferritin Troponin I High Sens 54.0 H* C-Reactive Protein B-Natriuretic Peptide Total Protein 5.4 L Albumin 3.0 L Ur Specific [place] Urine Protein COVID-19 ([facility]) 09/17/21 09/17/21 06:49 06:49 Plt Count 82 L Neutrophils % (Manual) Band Neutrophils % Lymphocytes % (Manual) Lymphocytes # (Manual) VBG pH Sodium Anion Gap BUN 21 H Calcium Ferritin Troponin I High Sens C-Reactive Protein B-Natriuretic Peptide Total Protein Albumin Ur Specific [place] Urine Protein COVID-19 ([facility]) Assessment and Plan (1) Acute respiratory failure with hypoxia: Status: Acute (2) COVID-19: Status: Acute (3) Pneumonia: Status: Acute (4) Atelectasis: Status: Acute Plan Add Vancomycin Continue Levaquin CPT to the left lung. Continue decadron Continue Remdisivir Continue HF to keep pox>90% Procedures Date of Service Date of Service: 09/18/21
[2021-09-17] MEDS: timoloL maleate 0.5 % Oph Sol 5 ML DRBTL 1 DROP EYE-BOTH (11:29)
--- NOTE | 2021-09-17 11:48 | PHA.PROG ---
Admission Date/Time: September 16, 2021 16:06 Indication: RESPIRATORY INFECTION Weight in k.9 kg Adjusted body weight in K.1 [facility] body weight in K.9 Obesity Dosing Indication % IBW: Serum Creatinine - Last 168 Hours 09/16/21 09/16/21 09/17/21 09:55 15:57 06:49 Creatinine 0.81 0.72 0.75 Estimated CrCl and GFR - Last 168 Hours 09/16/21 09/16/21 09/17/21 09:55 15:57 06:49 Estim Creat Clear Calc 32.4 36.5 39.1 Estimated GFR > 60 > 60 > 60 Vancomycin Loading Dose: N/A Current Vancomycin Dosing Regimen: 750 MG Q24H Vancomycin Monitoring using AUC goal of 400 - 600 range with trough as surrogate marker: AUC 457; TROUGH 14.4 Date and Time for next Vancomycin Level to be drawn: 09/19 @1000 Pharmacist Comments on Vancomycin Plan: Vancomycin dosing will take advantage of [employer] as a clinical decision support tool that uses Bayesian modeling to calculate individual patient's pharmacokinetic parameters and forecast the patient's drug concentration time course with the target goal AUC 24 range of 400 - 600 mg/L/hr.
[2021-09-17] MEDS: vancomycin HCL 750 MG in 0.9 % Sodium Chloride 250 ML 265 MG IV (12:14)
--- NOTE | 2021-09-17 13:55 | P.PNIM_ITS ---
Subjective Subjective Date of Service: 09/17/21 <CURLY Botello - Last Filed: 09/17/21 14:07> 09/18/21 <Zelalem Silver DO - Last Filed: 09/18/21 07:56> Interval History: Seen examined this morning Follow-up for pneumonia/COVID-19/respiratory failure Still requiring high-flow oxygen Denies shortness of breath Feels tired, reporting sore throat <CURLY Botello - Last Filed: 09/17/21 14:07> Review of Systems Review of Systems: Yes all other systems are reviewed and are negative <CURLY Botello - Last Filed: 09/17/21 14:07> Constitutional Constitutional: Denies chills and Denies fever(s) <CURLY Botello - Last Filed: 09/17/21 14:07> Cardiovascular Cardiovascular: Denies chest pain, Denies palpitations and Denies dyspnea <CURLY Botello - Last Filed: 09/17/21 14:07> Respiratory Respiratory: Reports cough and Denies dyspnea <CURLY Botello - Last Filed: 09/17/21 14:07> Gastrointestinal Gastrointestinal: Denies abdominal pain, Denies nausea and Denies vomiting <CURLY Botello - Last Filed: 09/17/21 14:07> Endocrine Endocrine: Denies palpitations <CURLY Botello - Last Filed: 09/17/21 14:07> Physical Exam Vital Signs: Vital Signs: Last Vital Signs Temp 98.7 F 09/17/21 11:42 Pulse 87 09/17/21 11:42 Resp 20 09/17/21 11:42 BP 100/68 09/17/21 11:42 Pulse Ox 97 09/17/21 11:42 BMI result Body Mass Index 15.7 <CURLY Botello - Last Filed: 09/17/21 14:07> Const: Other: appears tired, chronically ill <CURLY Botello Last Filed: 09/17/21 14:07> General: no acute distress, alert, awake and lethargic <CURLY Botello - Last Filed: 09/17/21 14:07> Nutritional Appearance: thin <CURLY Botello - Last Filed: 09/17/21 14:07> Orientation/consciousness: patient oriented x3 and lethargic <CURLY Botello - Last Filed: 09/17/21 14:07> Resp: Effort & Inspection: normal respiratory effort and able to speak in complete sentences <CURLY Botello - Last Filed: 09/17/21 14:07> Cardio: Rate: regular rate <CURLY Botello - Last Filed: 09/17/21 14:07> Heart sounds: S1 normal heart sound present and S2 normal heart sound present <CURLY Botello - Last Filed: 09/17/21 14:07> GI: Inspection: No distended <CURLY Botello - Last Filed: 09/17/21 14:07> Palpation (GI): Soft to palpation <CURLY Botello - Last Filed: 09/17/21 14:07> Neuro: General: patient oriented x3 <CURLY Botello - Last Filed: 09/17/21 14:07> Extrem: Other: moving all 4 extremities spontaneously <CURLY Botello - Last Filed: 09/17/21 14:07> General: Yes no pedal edema <CURLY Botello - Last Filed: 09/17/21 14:07> Objective Data Active Medications Acetaminophen (Acetaminophen 325 Mg Tablet) 650 mg PO Q6H PRN PRN Reason: Pain, Mild (Pain Scale 1-3) Last Admin: 09/17/21 12:21 Dose: 650 mg Documented by: JOSE Apixaban (Apixaban 2.5 Mg Tablet) 2.5 mg PO BID [facility] Last Admin: 09/17/21 09:24 Dose: 2.5 mg Documented by: JOSE Atorvastatin Calcium (Atorvastatin Calcium 10 Mg Tablet) 10 mg PO BEDTIME [facility] Last Admin: 09/16/21 22:56 Dose: 10 mg Documented by: SKYLER Benzocaine (Throat Lozenge, Medicated Lozenge) 1 lozenge MUCOUS MEM Q2H PRN PRN Reason: Sore Throat Dexamethasone Sodium Phosphate (Dexamethasone Sod Phosphate 4 Mg/Ml Vial) 6 mg IVPUSH DAILY [facility] Last Admin: 09/17/21 09:24 Dose: 6 mg Documented by: JOSE Docusate Sodium (Docusate Sodium 100 Mg Capsule) 100 mg PO DAILY PRN PRN Reason: Constipation Ferrous Sulfate (Ferrous Sulfate 324 Mg Tablet.Dr) 324 mg PO DAILY [facility] Last Admin: 09/17/21 09:25 Dose: 324 mg Documented by: JOSE Flecainide Acetate (Flecainide Acetate 50 Mg Tablet) 50 mg PO BID [facility] Last Admin: 09/17/21 09:24 Dose: 50 mg Documented by: JOSE Remdesivir 100 mg/ Sodium (Chloride) 230 mls @ 115 mls/hr IV Q24H [facility] Stop: 09/20/21 19:59 Vancomycin HCl 750 mg/ Sodium (Chloride) 265 mls @ 265 mls/hr IV Q24H [facility] Last Infusion: 09/17/21 13:22 Dose: 265 mls/hr Documented by: JOSE Metoprolol Succinate (Metoprolol Succinate Er 25 Mg Tab.Er.24h) 25 mg PO DAILY [facility]; Protocol Last Admin: 09/17/21 09:24 Dose: 25 mg Documented by: JOSE Multi-Ingred Medicated Throat [place] (Throat [place], Medicated 20 Ml Bottle) 1 spray MUCOUS MEM Q2H PRN PRN Reason: Sore Throat Pharmacy Consult (Consult Rx Perform Med Rec) 1 each MISCELLANE ONCE PRN PRN Reason: Consult order Pharmacy Consult (Consult Rx Vancomycin Dosing) 1 each MISCELLANE DAILY PRN PRN Reason: Consult order Sodium Chloride (0.9 % Sodium Chloride Flush 3 Ml Syringe) 3 ml IVFLUSH QSHIFT [facility] Last Admin: 09/17/21 09:24 Dose: 3 ml Documented by: JOSE Timolol Maleate (Timolol Maleate 0.5 % Oph Lzu Elena 5 Ml Drbtl) 1 drop EYE-BOTH DAILY [facility] Last Admin: 09/17/21 11:29 Dose: 1 drop Documented by: JOSE Vitamin D (Cholecalciferol (Vitamin D3) 25 Mcg Tablet) 50 mcg PO DAILY [facility] Last Admin: 09/17/21 09:23 Dose: 50 mcg Documented by: JOSE <CURLY Botello - Last Filed: 09/17/21 14:07> Labs CBC & Chem 7: : 09/18/21 05:35 09/18/21 05:35 <CURLY Botello - Last Filed: 09/17/21 14:07> Labs: Laboratory Results - last 24 hr 09/16/21 09/16/21 09/16/21 09:55 15:57 15:57 MCV MCH MCHC RDW Plt Count MPV Absolute Nucleated RBC Nucleated RBC % (auto) Anion Gap 11 L Estim Creat Clear Calc 36.5 Estimated GFR > 60 Random Glucose 112 Calcium 8.0 L Ferritin 1809 H Total Bilirubin 0.6 AST 28 ALT 18 Alkaline Phosphatase 51 Lactate Dehydrogenase 204 Troponin I High Sens 54.0 H* C-Reactive Protein 19.17 H Total Protein 5.4 L Albumin 3.0 L 09/17/21 09/17/21 06:49 06:49 MCV 87.8 MCH 29.4 MCHC 33.5 RDW 14.8 Plt Count 82 L MPV 11.0 Absolute Nucleated RBC 0.000 Nucleated RBC % (auto) 0.0 Anion Gap 14 Estim Creat Clear Calc 39.1 Estimated GFR > 60 Random Glucose 103 Calcium 8.5 D Ferritin Total Bilirubin AST ALT Alkaline Phosphatase Lactate Dehydrogenase Troponin I High Sens C-Reactive Protein Total Protein Albumin <CURLY Botello - Last Filed: 09/17/21 14:07> Microbiology Microbiology Results: Microbiology 09/16/21 10:38 Blood Culture - Preliminary Blood - Venous No growth after 24 hours. 09/16/21 09:56 Blood Culture - Preliminary Blood - Venous No growth after 24 hours. <CURLY Botello - Last Filed: 09/17/21 14:07> Assessment and Plan (1) Pneumonia: Status: Acute <CURLY Botello - Last Filed: 09/17/21 14:07> (2) Acute respiratory failure with hypoxia: Status: Acute <CURLY Botello - Last Filed: 09/17/21 14:07> (3) COVID-19: Status: Acute <CURLY Botello - Last Filed: 09/17/21 14:07> Plan This is an 86-year-old female history of protein S deficiency on lifelong anticoagulation, PE, atrial fibrillation, CAD, history of intracranial bleed, on hospice since May 2021 for heart issues who presents to the emergency department with respiratory distress found to be COVID positive Acute respiratory failure with hypoxia secondary to COVID-19 and pneumonia symptomatic for 2 days, unvaccinated Continue high-flow oxygen, wean as tolerated to keep o2 sat >90% Follow inflammatory markers Seen by pulmonology Continue IV Decadron Continue Remdesivir CAP CTA showing consolidation of right lower lobe and left lower lobe collapse Seen by pulmonology Continue Levaquin, add vancomycin Blood cultures negative to date Thrombocytopenia possible related to viral illness. no recent baseline follow cbc elevated trops no chest pain, trops flat likely secondary to demand from hypoxia Chronic HFpEF BNP 644 clinically does not appear to be in heart failure PAF in sinus continue metoprolol, flecainide continue AC with Eliquis HLD continue statin h/o protein s deficiency continue Eliquis probably moderate protein calorie malnutrition BMI 15.7, albumin low will add supplements formal nutrition consult pending dvt ppx - [facility] code status - dnr/dni attending - dr. silver dispo - to resume hospice upon discharge <CURLY Botello - Last Filed: 09/17/21 14:07> This is an 86-year-old female history of protein S deficiency on lifelong anticoagulation, PE, atrial fibrillation, CAD, history of intracranial bleed, on hospice since May 2021 for heart issues who presents to the emergency department with respiratory distress found to be COVID positive Acute respiratory failure with hypoxia secondary to COVID-19 and pneumonia symptomatic for 2 days, unvaccinated Continue high-flow oxygen, wean as tolerated to keep o2 sat >90% Follow inflammatory markers Seen by pulmonology Continue IV Decadron Continue Remdesivir CAP CTA showing consolidation of right lower lobe and left lower lobe collapse Seen by pulmonology Continue Levaquin, add vancomycin Blood cultures negative to date Thrombocytopenia possible related to viral illness. no recent baseline follow cbc elevated trops no chest pain, trops flat likely secondary to demand from hypoxia Chronic HFpEF BNP 644 clinically does not appear to be in heart failure PAF in sinus continue metoprolol, flecainide continue AC with Eliquis HLD continue statin h/o protein s deficiency continue Eliquis probably moderate protein calorie malnutrition BMI 15.7, albumin low will add supplements formal nutrition consult pending dvt ppx - Eiquis code status - dnr/dni attending - dr. silver Chart reviewed; patient examined. Agree with history and physical and plan as outlined by Ms. Estrada. dispo - to resume hospice upon discharge <Zelalem Silver DO - Last Filed: 09/18/21 07:56> Quality Stroke Does the patient have a stroke diagnosis?: No <CURLY Botello - Last Filed: 09/17/21 14:07> VTE Prior VTE?: Yes <CURLY Botello - Last Filed: 09/17/21 14:07> VTE Risk Level:: Medical - moderate - high <CULRY Botello - Last Filed: 09/17/21 14:07> VTE Device Contraindication: N/A - Device Ordered <CURLY Botello - Last Filed: 09/17/21 14:07> VTE Drug Contraindication: N/A - Med Ordered <CURLY Botello - Last Filed: 09/17/21 14:07>
[2021-09-17] MEDS: levoFLOXacin/D5W 750 MG/150 ML PIGGYBACK 100 MG IV (16:00)
[2021-09-17] MEDS: Magnesium Hydrox/Alum Hydrox 30 ML ORAL.SUSP PO (16:10)
[2021-09-17] MEDS: Remdesivir 100 MG in 0.9 % Sodium Chloride 230 ML 115 MG IV (18:36)
[2021-09-17] MEDS: Atorvastatin Calcium 10 MG TABLET PO (20:32)
[2021-09-18] VITALS (9 sets, daily range): BP systolic 88–133; BP diastolic 55–85; PULSE 61–85; RESP 15–98; TEMP 36.2–36.8; O2SAT 96–98
[2021-09-18] MEDS: 0.9 % Sodium Chloride Flush 3 ML SYRINGE IVFLUSH ×3 (00:36→15:39)
[2021-09-18 06:02] LABS: Hematocrit 41.5 % (37.0-47.0); Hemoglobin 13.9 g/dl (12.0-16.0); Mean Corpuscular HGB Conc 33.5 g/dl (31.0-35.0); Mean Corpuscular Hemoglobin 29.5 pg (27.0-33.0); Mean Corpuscular Volume 88.1 fL (80.0-98.0); Mean Platelet Volume 11.1 fL (9.4-12.3); Platelet Count 105 X10*3/uL (160-400); Red Blood Count 4.71 X10*6/uL (4.20-5.50); White Blood Count 11.1 X10*3/uL (4.8-10.8)
[2021-09-18 06:26] LABS: Anion Gap 12 (12-20); Blood Urea Nitrogen 34 mg/dL (9-16); C Reactive Protein 12.14 mg/dL (< or = 0.50); Calcium 8.7 mg/dL (8.4-10.2); Carbon Dioxide 27 mmol/L (22-29); Chloride 102 mmol/L (96-108); Creatinine Clr Calc Pharmacy 38.1; Estimated Glomerular Filt Rate > 60; Glucose Random 134 mg/dL (60-115); Potassium 4.7 mmol/L (3.3-5.1); Sodium 136 mmol/L (135-145)
[2021-09-18 06:39] LABS: Ferritin 1162 ng/mL (10-250)
[2021-09-18] MEDS: Metoprolol Succinate ER 25 MG TAB.ER.24H PO (09:58)
[2021-09-18] MEDS: Apixaban 2.5 MG TABLET PO ×2 (09:59→19:56)
[2021-09-18] MEDS: Flecainide Acetate 50 MG TABLET PO ×2 (09:59→19:56)
[2021-09-18] MEDS: Ferrous Sulfate 324 MG TABLET.DR PO (09:59)
[2021-09-18] MEDS: Acetaminophen 325 MG TABLET 650 MG PO (09:59)
[2021-09-18] MEDS: Cholecalciferol (Vitamin D3) 25 MCG TABLET 50 MCG PO (10:00)
[2021-09-18] MEDS: timoloL maleate 0.5 % Oph Sol 5 ML DRBTL 1 DROP EYE-BOTH (10:00)
[2021-09-18] MEDS: dexAMETHasone sod phosphate 4 MG/ML VIAL 6 MG IVPUSH (10:00)
--- NOTE | 2021-09-18 10:26 | HE.PHANOTE ---
Based off Scr of 0.77 dose continued at 750q24. Next trough 09/19 @ 1000
[2021-09-18] MEDS: vancomycin HCL 750 MG in 0.9 % Sodium Chloride 250 ML 265 MG IV (12:02)
--- NOTE | 2021-09-18 12:09 | P.PNIM_ITS ---
Subjective Subjective Date of Service: 09/18/21 <CURYL Botello - Last Filed: 09/18/21 12:16> 09/18/21 <Zelalem Silver DO - Last Filed: 09/18/21 15:06> Interval History: Seen and examined this morning Patient does not feel well this morning however she was able to be weaned down to 4 L nasal cannula Dry cough, shortness of breath reported Sore throat improving <CURLY Botello - Last Filed: 09/18/21 12:16> Review of Systems Review of Systems: No all other systems are reviewed and are negative <CURLY Botello - Last Filed: 09/18/21 12:16> Constitutional Constitutional: Denies chills, Reports fatigue, Reports increased appetite and Reports lethargy <CURLY Botello - Last Filed: 09/18/21 12:16> feels warm but afebrile <CURLY Botello - Last Filed: 09/18/21 12:16> Cardiovascular Cardiovascular: Denies chest pain, Denies palpitations and Reports dyspnea <CURLY Botello - Last Filed: 09/18/21 12:16> Respiratory Respiratory: Reports cough and Reports dyspnea <CURLY Botello - Last Filed: 09/18/21 12:16> Gastrointestinal Gastrointestinal: Denies abdominal pain <CURLY Botello - Last Filed: 09/18/21 12:16> Endocrine Endocrine: Reports fatigue and Denies palpitations <CURLY Botello - Last Filed: 09/18/21 12:16> Physical Exam Vital Signs: Vital Signs: Last Vital Signs Temp 97.9 F 09/18/21 11:39 Pulse 62 09/18/21 11:39 Resp 98 H 09/18/21 11:39 BP 88/58 L 09/18/21 11:39 Pulse Ox 98 09/18/21 11:39 BMI result Body Mass Index 15.7 <CURLY Botello Last Filed: 09/18/21 12:16> Const: Other: appears tired <CURLY Botello - Last Filed: 09/18/21 12:16> General: no acute distress, alert and awake <CURLY Botello - Last Filed: 09/18/21 12:16> Nutritional Appearance: thin <CURLY Botello - Last Filed: 09/18/21 12:16> Orientation/consciousness: patient oriented x3 <CURLY Botello - Last Filed: 09/18/21 12:16> Resp: Effort & Inspection: normal respiratory effort and able to speak in complete sentences <CURLY Botello - Last Filed: 09/18/21 12:16> Cardio: Rate: regular rate <CURLY Botello - Last Filed: 09/18/21 12:16> Heart sounds: S1 normal heart sound present and S2 normal heart sound present <CURLY Botello - Last Filed: 09/18/21 12:16> GI: Inspection: No distended <CURLY Botello - Last Filed: 09/18/21 12:16> Palpation (GI): Soft to palpation <CURLY Botello - Last Filed: 12:16> Neuro: General: patient oriented x3 <CURLY Botello - Last Filed: 09/18/21 12:16> Extrem: Other: moving all 4 extremities spontaneously <CURLY Botello - Last Filed: 09/18/21 12:16> General: Yes no pedal edema <CURLY Botello - Last Filed: 09/18/21 12:16> Objective Data Active Medications Acetaminophen (Acetaminophen 325 Mg Tablet) 650 mg PO Q6H PRN PRN Reason: Pain, Mild (Pain Scale 1-3) Last Admin: 09/18/21 09:59 Dose: 650 mg Documented by: JOSE Al Hydroxide/Mg Hydroxide (Magnesium Hydrox/Alum Hydrox 30 Ml Oral.Susp) 30 ml PO Q6H PRN PRN Reason: Dyspepsia Last Admin: 09/17/21 16:10 Dose: 30 ml Documented by: MAURO Apixaban (Apixaban 2.5 Mg Tablet) 2.5 mg PO BID KASSIDY Last Admin: 09/18/21 09:59 Dose: 2.5 mg Documented by: JOSE Atorvastatin Calcium (Atorvastatin Calcium 10 Mg Tablet) 10 mg PO BEDTIME COUNT INCLUDES THE [facility] Last Admin: 09/17/21 20:32 Dose: 10 mg Documented by: MAURO Benzocaine (Throat Lozenge, Medicated Lozenge) 1 lozenge MUCOUS MEM Q2H PRN PRN Reason: Sore Throat Dexamethasone Sodium Phosphate (Dexamethasone Sod Phosphate 4 Mg/Ml Vial) 6 mg IVPUSH DAILY COUNT INCLUDES THE [facility] Last Admin: 09/18/21 10:00 Dose: 6 mg Documented by: JOSE Docusate Sodium (Docusate Sodium 100 Mg Capsule) 100 mg PO DAILY PRN PRN Reason: Constipation Ferrous Sulfate (Ferrous Sulfate 324 Mg Tablet.Dr) 324 mg PO DAILY COUNT INCLUDES THE [facility] Last Admin: 09/18/21 09:59 Dose: 324 mg Documented by: JOSE Flecainide Acetate (Flecainide Acetate 50 Mg Tablet) 50 mg PO BID COUNT INCLUDES THE [facility] Last Admin: 09/18/21 09:59 Dose: 50 mg Documented by: JOSE Remdesivir 100 mg/ Sodium (Chloride) 230 mls @ 115 mls/hr IV Q24H COUNT INCLUDES THE [facility] Stop: 09/20/21 19:59 Last Infusion: 09/17/21 20:41 Dose: 0 mls/hr Documented by: MAURO Vancomycin HCl 750 mg/ Sodium (Chloride) 265 mls @ 265 mls/hr IV Q24H COUNT INCLUDES THE [facility] Last Admin: 09/18/21 12:02 Dose: 265 mls/hr Documented by: JOSE Levofloxacin (Levaquin) 750 mg in 150 mls @ 100 mls/hr IV Q48H COUNT INCLUDES THE [facility] Last Infusion: 09/17/21 17:54 Dose: 0 mls/hr Documented by: MAURO Sodium Chloride (Ns) 500 mls @ 250 mls/hr IVCONT .Q2H COUNT INCLUDES THE [facility] Stop: 09/18/21 12:59 Metoprolol Succinate (Metoprolol Succinate Er 25 Mg Tab.Er.24h) 25 mg PO DAILY COUNT INCLUDES THE [facility]; Protocol Last Admin: 09/18/21 09:58 Dose: 25 mg Documented by: JOSE Multi-Ingred Medicated Throat [place] (Throat [place], Medicated 20 Ml Bottle) 1 spray MUCOUS MEM Q2H PRN PRN Reason: Sore Throat Pharmacy Consult (Consult Rx Perform Med Rec) 1 each MISCELLANE ONCE PRN PRN Reason: Consult order Pharmacy Consult (Consult Rx Vancomycin Dosing) 1 each MISCELLANE DAILY PRN PRN Reason: Consult order Sodium Chloride (0.9 % Sodium Chloride Flush 3 Ml Syringe) 3 ml IVFLUSH QSHIFT COUNT INCLUDES THE [facility] Last Admin: 09/18/21 09:59 Dose: 3 ml Documented by: JOSE Timolol Maleate (Timolol Maleate 0.5 % Oph Luz Elena 5 Ml Drbtl) 1 drop EYE-BOTH DAILY COUNT INCLUDES THE [facility] Last Admin: 09/18/21 10:00 Dose: 1 drop Documented by: JOSE Vitamin D (Cholecalciferol (Vitamin D3) 25 Mcg Tablet) 50 mcg PO DAILY COUNT INCLUDES THE [facility] Last Admin: 09/18/21 10:00 Dose: 50 mcg Documented by: JOSE <CURLY Botello - Last Filed: 09/18/21 12:16> Labs CBC & Chem 7: : 09/18/21 05:35 09/18/21 05:35 <CURLY Botello - Last Filed: 09/18/21 12:16> Labs: Laboratory Results - last 24 hr 09/18/21 09/18/21 05:35 05:35 MCV 88.1 MCH 29.5 MCHC 33.5 RDW 15.0 Plt Count 105 L D MPV 11.1 Absolute Nucleated RBC 0.000 Nucleated RBC % (auto) 0.0 Anion Gap 12 Estim Creat Clear Calc 38.1 Estimated GFR > 60 Random Glucose 134 H Calcium 8.7 Ferritin 1162 H C-Reactive Protein 12.14 H <CURLY Botello - Last Filed: 09/18/21 12:16> Microbiology Microbiology Results: Microbiology 09/16/21 09:56 Blood Culture - Preliminary Blood - Venous No growth after 48 hours. 09/16/21 10:38 Blood Culture - Preliminary Blood - Venous No growth after 24 hours. <CURLY Botello - Last Filed: 09/18/21 12:16> Assessment and Plan (1) Pneumonia: Status: Acute <CURLY Botello - Last Filed: 09/18/21 12:16> (2) Acute respiratory failure with hypoxia: Status: Acute <CURLY Botello - Last Filed: 09/18/21 12:16> (3) COVID-19: Status: Acute <CURLY Botello - Last Filed: 09/18/21 12:16> Plan This is an 86-year-old female history of protein S deficiency on lifelong anticoagulation, PE, atrial fibrillation, CAD, history of intracranial bleed, on hospice since May 2021 for heart issues who presents to the emergency department with respiratory distress found to be COVID positive Acute respiratory failure with hypoxia secondary to COVID-19 and pneumonia symptomatic for 2 days, unvaccinated Weaned off high flow to 4L NC, wean as tolerated to keep o2 sat >90% Inflammatory markers trending down slightly Seen by pulmonology Continue IV Decadron Continue Remdesivir CAP CTA showing consolidation of right lower lobe and left lower lobe collapse Seen by pulmonology Continue Levaquin (renal dosing), vancomycin Blood cultures negative to date Thrombocytopenia possible related to viral illness. 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 silver dispo - plan to resume hospice upon discharge <CURLY Botello - Last Filed: 09/18/21 12:16> This is an 86-year-old female history of protein S deficiency on lifelong anticoagulation, PE, atrial fibrillation, CAD, history of intracranial bleed, on hospice since May 2021 for heart issues who presents to the emergency department with respiratory distress found to be COVID positive Acute respiratory failure with hypoxia secondary to COVID-19 and pneumonia symptomatic for 2 days, unvaccinated Weaned off high flow to 4L NC, wean as tolerated to keep o2 sat >90% Inflammatory markers trending down slightly Seen by pulmonology Continue IV Decadron Continue Remdesivir CAP CTA showing consolidation of right lower lobe and left lower lobe collapse Seen by pulmonology Continue Levaquin (renal dosing), vancomycin Blood cultures negative to date Thrombocytopenia possible related to viral illness. 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 silver Chart reviewed; patient examined. Agree with history physical and plan as outlined by Ms. Estrada dispo - plan to resume hospice upon discharge <Zelalem Silver DO - Last Filed: 09/18/21 15:06> Quality Stroke Does the patient have a stroke diagnosis?: No <CURLY oBtello - Last Filed: 09/18/21 12:16> VTE Prior VTE?: Yes <CURLY Botello - Last Filed: 09/18/21 12:16> VTE Risk Level:: Medical - moderate - high <CURLY Botello - Last Filed: 09/18/21 12:16> VTE Device Contraindication: N/A - Device Ordered <CURLY Botello - Last Filed: 09/18/21 12:16> VTE Drug Contraindication: N/A - Med Ordered <CURLY Botello - Last Filed: 09/18/21 12:16>
[2021-09-18] MEDS: 0.9 % Sodium Chloride 500 ML 250 ML IVCONT (13:40)
[2021-09-18] MEDS: Remdesivir 100 MG in 0.9 % Sodium Chloride 230 ML 115 MG IV (18:14)
[2021-09-18] MEDS: Throat Lozenge, Medicated LOZENGE 1 LOZENGE MUCOUS MEM (18:21)
[2021-09-18] MEDS: Atorvastatin Calcium 10 MG TABLET PO (19:56)
[2021-09-19] VITALS (7 sets, daily range): BP systolic 96–124; BP diastolic 56–72; PULSE 69–80; RESP 16–20; TEMP 35.9–36.8; O2SAT 96–100; BMI 19.5
[2021-09-19] MEDS: 0.9 % Sodium Chloride Flush 3 ML SYRINGE IVFLUSH ×4 (00:35→21:30)
[2021-09-19 09:28] LABS: Anion Gap 10 (12-20); Blood Urea Nitrogen 34 mg/dL (9-16); Carbon Dioxide 30 mmol/L (22-29); Chloride 102 mmol/L (96-108); Creatinine Clr Calc Pharmacy 36.6; Estimated Glomerular Filt Rate > 60; Glucose Random 147 mg/dL (60-115); Potassium 4.3 mmol/L (3.3-5.1); Sodium 138 mmol/L (135-145)
[2021-09-19] MEDS: dexAMETHasone sod phosphate 4 MG/ML VIAL 6 MG IVPUSH (09:38)
[2021-09-19] MEDS: Cholecalciferol (Vitamin D3) 25 MCG TABLET 50 MCG PO (09:39)
[2021-09-19] MEDS: Apixaban 2.5 MG TABLET PO ×2 (09:39→21:29)
[2021-09-19] MEDS: Metoprolol Succinate ER 25 MG TAB.ER.24H PO (09:40)
[2021-09-19] MEDS: Ferrous Sulfate 324 MG TABLET.DR PO (09:40)
[2021-09-19] MEDS: Flecainide Acetate 50 MG TABLET PO ×2 (09:40→21:29)
[2021-09-19 10:14] LABS: Vancomycin Trough 5.3 mcg/mL (10.0-20.0)
--- NOTE | 2021-09-19 10:37 | MHC.CLN ---
RE: CONSULT PT IS SEVERELY MALNOURISHED PT WITH MODERATELY DEPLETED SUBCUTANEOUS FAT AND MUSCLE MASS, BMI 19.5 WITH CHRONIC POOR PO INTAKE. NOTE HT USED FOR ASSESSMENT 5'1 . PT PREVIOUS DX WITH SEVERE MALNUTRITION (SEE RD ASSESSMENT DATED 09/2020) PO INTAKE 0-25% DIET RX: 2GM NA CHOPPED-RECOMMEND LIBERALIZED DIET TO REGULAR CHOPPED PT RECEIVING 8OZ ENSURE TID PROVIDES 1050KCALS, 60G PROTEIN PT PREFERS SMALL PORTIONS MONITOR PO INTAKE CLOSELY SEE FULL CLINICAL NUTRITION ASSESSMENT
--- NOTE | 2021-09-19 10:44 | HE.PHANOTE ---
re VLADO Patient SCR stable, but trough low at 5.3. Per insight, patient will not be therapuetic till 96 hours. Put in a 1x 1000mg dose (20mg/kg) and resuming 750 q24 from tomorrow. Next trough is 412 @0900
--- NOTE | 2021-09-19 12:04 | MHC.CM.PN ---
PER HOSPITALIST PT MEDICALLY CLEARED FOR D/C, CM HAS SENT MESSAGE TO [facility] TO DETERMINE WHEN THEY CAN ARRANGE FOR O2 TO BE DELIVERED AND ARE AWARE PT WILL BE ON 4L NC CONT, CM AWAITING RESPONSE, CM ALSO CONTACTED PT'S SON/HCP RUBÉN [phone] WHO REPORTS HE IS AGREEABLE TO PLAN FOR PT TO RETURN HOME HOWEVER HE WILL DISCUSS W/PT'S 88YO AND OTHER CHILDREN AND WILL CONTACT THIS CM.
[2021-09-19] MEDS: vancomycin HCL 1,000 MG in 0.9 % Sodium Chloride 250 ML 270 MG IV (12:30)
[2021-09-19] MEDS: timoloL maleate 0.5 % Oph Sol 5 ML DRBTL 1 DROP EYE-BOTH (12:31)
--- NOTE | 2021-09-19 13:42 | MHC.SL.SWA ---
Speech Pathologist Impression: Oropharyngeal dysphagia. Risk of Aspiration Due to: History of Pneumonia Dysphasia Diet Status: Downgrade Liquid Consistency and Strategies for Safe Swallow: Liquid Intake Recommendation: Thin ([place]ian Free Water) Liquid Intake Strategies: Small Sips No Straws *LIQUIDS BY TEASPOON ONLY* Solid Food Consistency: Dietary Recommendations: Grnd/Mech Altered (NDD2) Additional Modifications to Solid Foods: Patient has history of dysphagia and was seen by STANDARDS ANALYST several times during previous hospitalizations. Patient had MBSS here at [facility] on 06/2020 which was unremarkable, showing no evidence of aspiration, good oral and pharyngeal clearance. Patient seen again by STANDARDS ANALYST 09/2020 and downgraded at that time to ground solids and nectar thick liquids due to worsening dysphagia. Patient was seen this AM for bedside dysphagia evaluation, as order was placed after patient coughed when eating. Patient displayed prolonged oral phase with consumption of soft solid. Note coughing when consuming larger quantities of liquids, both thickened and thin. Patient did tolerate liquids by teaspoon. Recommend DOWNGRADE to GROUND/MECH ALTERED (NDD2) solids with sauce/gravy, thin liquids per FLORIAN FREE WATER PROTOCOL- by TEASPOON, pills CRUSHED in PUREE. Recommend oral care before and after PO intake. Patient requires total 1:1 assistance feeding. Recommend monitor for s/s of aspiration and ensure aspiration precautions. STANDARDS ANALYST will continue to follow. Diet order updated by STANDARDS ANALYST. Notified , RN, RD via [place] Message. Oral Medication Intake: Crushed with Puree Please contact the pharmacy regarding appropriate crushable or liquid drug formulations that are available whenever modified delivery is recommended. Compensatory Strategies and Precautions to be Taken for Safe Swallow: Sitting Upright (90 deg) No Straw Liquids from Spoon Small Bites and Sips Alternate Liquids/Solids Rate of Ingestion Change Oral Check Avoid Specific Foods Supervision While Eating and Drinking for Safe Swallow: Total Assistance (1:1) Foods to Avoid: Tough difficult to chew solids; sticky solids. Swallowing Recommended Treatments: Compens. Strategy Educat. Recommendation for Speech: Inpatient Speech Therapy : Director Of Patient Care Clinican/Clinical Fellow: No Supervisory Statement: I have reviewed and agree with the student/clinical fellow's documentation: N/A Speech Language Pathologist: Drea Brewer M.A., [facility]-STANDARDS ANALYST
--- NOTE | 2021-09-19 14:29 | MHC.CM.PN ---
Addendum entered by Graciela Vasquez, RN 09/19/21 15:49: CM RECEIVED CALL FROM HOSPITALIST WHO REPORT PT'S HCP CONTACTED HER AND THEY WOULD LIKE TO TAKE PT HOME TOMORROW AND RESUME [facility] AND ARE REQUESTING CALL FROM CM IN AM. CM STILL AWAITING CALL BACK FROM RICKY CASTELLANOS AT [facility]. HCP REPORTS PT IS VERY HAPPY W/[facility] AND PREFERS NOT TO CHANGE. Original Note: EMR REVIEWED, CM MET W/HOSPITALIST AND HCP/FRIEND NOT SON RUBÉN AND RUBÉN'S TO DCP, RUBÉN REPORTING PT WILL NOT WANT TO GO TO STR AND WILL WANT TO GO HOME W/HOSPICE AND HE IS WILLING TO STAY W/PT 24HRS UNTIL THEY CAN PUT IN PLACE [employer]'S FOR OVERNIGHT CARE, RUBÉN WAS PROVIDED LIST OF HH COMPANIES THAT COVER PT'S AREA, RUBÉN HOPING PT WILL BECOME STRONGER HOWEVER THIS MAY NOT BE REALISTIC, RUBÉN WILL CONTACT PT'S HUSBANDS FAMILY WHO ALSO NEEDS CARE AT HOME TO LET THEM KNOW PT IS COVID POSITIVE AND WILL FOLLOW UP W/CM IN AM. PER HOSPITALIST PT WILL REMAIN INPT FOR FURTHER WORKUP. CM AND HOSPITALIST MET W/PT WHO CONFIRMS SHE WANTS TO RETURN HOME W/HOSPICE AND DOES NOT WANT STR. CM ATTEMPTED TO CONTACT [facility] RICKY CASTELLANOS AT 2:10PM [phone] RUBÉN HAD RECEIVED A CALL THAT THEY WILL NO LONGER PROVIDE SERVICE FOR PT HOWEVER PER ADMISSIONS LIAISON IN [facility] THEY WILL ORDER HOME O2 FOR PT, MESSAGE LEFT W/CM CONTACT INFO.
--- NOTE | 2021-09-19 15:09 | P.PNIM_ITS ---
Subjective Subjective Date of Service: 09/19/21 Review of Systems Follow up [place] 19 very weak and lethargic no pain or sob Physical Exam Vital Signs: Vital Signs: Last Vital Signs Temp 96.7 F L 09/19/21 11:32 Pulse 69 09/19/21 13:13 Resp 16 09/19/21 11:32 BP 103/64 09/19/21 13:13 Pulse Ox 100 09/19/21 13:13 BMI result Body Mass Index 19.5 Appearing in no acute distress lung sounds are clear to auscultation heart regular rate rhythm, clear S1, S2 positive bowel sounds, abdomen is soft, nontender neuro patient is alert x3, no focal deficits Objective Data Active Medications Acetaminophen (Acetaminophen 325 Mg Tablet) 650 mg PO Q6H PRN PRN Reason: Pain, Mild (Pain Scale 1-3) Last Admin: 09/18/21 09:59 Dose: 650 mg Documented by: JOSE Al Hydroxide/Mg Hydroxide (Magnesium Hydrox/Alum Hydrox 30 Ml Oral.Susp) 30 ml PO Q6H PRN PRN Reason: Dyspepsia Last Admin: 09/17/21 16:10 Dose: 30 ml Documented by: MAURO Apixaban (Apixaban 2.5 Mg Tablet) 2.5 mg PO BID COUNT INCLUDES THE [facility] Last Admin: 09/19/21 09:39 Dose: 2.5 mg Documented by: RODOLFO Atorvastatin Calcium (Atorvastatin Calcium 10 Mg Tablet) 10 mg PO BEDTIME COUNT INCLUDES THE [facility] Last Admin: 09/18/21 19:56 Dose: 10 mg Documented by: MAURO Benzocaine (Throat Lozenge, Medicated Lozenge) 1 lozenge MUCOUS MEM Q2H PRN PRN Reason: Sore Throat Last Admin: 09/18/21 18:21 Dose: 1 lozenge Documented by: MAURO Dexamethasone Sodium Phosphate (Dexamethasone Sod Phosphate 4 Mg/Ml Vial) 6 mg IVPUSH DAILY COUNT INCLUDES THE [facility] Last Admin: 09/19/21 09:38 Dose: 6 mg Documented by: RODOLFO Docusate Sodium (Docusate Sodium 100 Mg Capsule) 100 mg PO DAILY PRN PRN Reason: Constipation Ferrous Sulfate (Ferrous Sulfate 324 Mg Tablet.) 324 mg PO DAILY COUNT INCLUDES THE [facility] Last Admin: 09/19/21 09:40 Dose: 324 mg Documented by: RODOLFO Flecainide Acetate (Flecainide Acetate 50 Mg Tablet) 50 mg PO BID COUNT INCLUDES THE [facility] Last Admin: 09/19/21 09:40 Dose: 50 mg Documented by: RODOLFO Remdesivir 100 mg/ Sodium (Chloride) 230 mls @ 115 mls/hr IV Q24H COUNT INCLUDES THE [facility] Stop: 09/20/21 19:59 Last Infusion: 09/18/21 20:30 Dose: 0 mls/hr Documented by: MAURO Levofloxacin (Levaquin) 750 mg in 150 mls @ 100 mls/hr IV Q48H COUNT INCLUDES THE [facility] Last Infusion: 09/17/21 17:54 Dose: 0 mls/hr Documented by: MAURO Vancomycin HCl 750 mg/ Sodium (Chloride) 265 mls @ 265 mls/hr IV Q24H COUNT INCLUDES THE [facility] Metoprolol Succinate (Metoprolol Succinate Er 25 Mg Tab.Er.24h) 25 mg PO DAILY COUNT INCLUDES THE [facility]; Protocol Last Admin: 09/19/21 09:40 Dose: 25 mg Documented by: RODOLFO Multi-Ingred Medicated Throat [place] (Throat [place], Medicated 20 Ml Bottle) 1 spray MUCOUS MEM Q2H PRN PRN Reason: Sore Throat Pharmacy Consult (Consult Rx Perform Med Rec) 1 each MISCELLANE ONCE PRN PRN Reason: Consult order Pharmacy Consult (Consult Rx Vancomycin Dosing) 1 each MISCELLANE DAILY PRN PRN Reason: Consult order Sodium Chloride (0.9 % Sodium Chloride Flush 3 Ml Syringe) 3 ml IVFLUSH QSHIFT COUNT INCLUDES THE [facility] Last Admin: 09/19/21 09:45 Dose: 3 ml Documented by: RODOLFO Timolol Maleate (Timolol Maleate 0.5 % Oph Luz Elena 5 Ml Drbtl) 1 drop EYE-BOTH DAILY COUNT INCLUDES THE [facility] Last Admin: 09/19/21 12:31 Dose: 1 drop Documented by: RODOLFO Vitamin D (Cholecalciferol (Vitamin D3) 25 Mcg Tablet) 50 mcg PO DAILY COUNT INCLUDES THE [facility] Last Admin: 09/19/21 09:39 Dose: 50 mcg Documented by: RODOLFO Labs CBC & Chem 7: 09/18/21 05:35 09/19/21 08:50 Labs: Laboratory Results - last 24 hr 09/19/21 09/19/21 08:50 08:50 Anion Gap 10 L Estim Creat Clear Calc 36.6 Estimated GFR > 60 Random Glucose 147 H Calcium 9.0 Vancomycin Trough 5.3 L Microbiology Microbiology Results: Microbiology 09/16/21 10:38 Blood Culture - Preliminary Blood - Venous No growth after 48 hours. 09/16/21 09:56 Blood Culture - Preliminary Blood - Venous No growth after 48 hours. Assessment and Plan (1) Pneumonia: Status: Acute (2) Acute respiratory failure with hypoxia: Status: Acute (3) COVID-19: Status: Acute Plan This is an 86-year-old female history of protein S deficiency on lifelong anticoagulation, PE, atrial fibrillation, CAD, history of intracranial bleed, on hospice since May 2021 for heart issues who presents to the emergency department with respiratory distress found to be COVID positive Acute respiratory failure with hypoxia secondary to COVID-19 and pneumonia symptomatic for 2 days, unvaccinated Weaned off high flow to 4L NC, now on room air, wean as tolerated to keep o2 sat >90% Inflammatory markers trending down slightly Seen by pulmonology Continue IV Decadron Continue Remdesivir CAP CTA showing consolidation of right lower lobe and left lower lobe collapse Seen by pulmonology Continue Levaquin (renal dosing), vancomycin Blood cultures negative to date Thrombocytopenia possible related to viral illness. 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 Perez Patient is very lethargic, plan is to likely discharge patient back home on hospice, this time oxygen is being weaned down and medications for COVID-19 treatment are continued Quality Stroke Does the patient have a stroke diagnosis?: No VTE Prior VTE?: Yes VTE Risk Level:: Medical - moderate - high VTE Device Contraindication: N/A - Device Ordered VTE Drug Contraindication: N/A - Med Ordered
[2021-09-19] MEDS: levoFLOXacin/D5W 750 MG/150 ML PIGGYBACK 100 MG IV (15:36)
--- NOTE | 2021-09-19 16:13 | MHC.CM.PN ---
DAISY RECEIVED CALL FROM EMANUEL FROM [facility] AND REPORTS THEY WILL PROVIDE SERVICES FOR PT AND WILL CLARIFY W/PT'S HCP, EMANUEL REPORTS PT WILL NEED O2 AND A HOSPITAL BED DELIVERED PRIOR TO D/C SHE DOES NOT HAVE HOSPITAL BED AT THIS TIME. EMANUEL IS AWARE PLAN IS FOR D/C HOME W/RESUMP OF HOSPICE TOMORROW AND SHE WILL WORK ON HOSPITAL BED AND O2 DELIVERY. EMANUEL REQUESTING CALL FROM DAISY TOMORROW TO FOLLOW-UP, CELL IS [phone].
[2021-09-19] MEDS: Remdesivir 100 MG in 0.9 % Sodium Chloride 230 ML 115 MG IV (18:41)
[2021-09-19] MEDS: Atorvastatin Calcium 10 MG TABLET PO (21:29)
[2021-09-20 04:00] VITALS: BP 110/69; PULSE 84; RESP 18; TEMP 37; O2SAT 95
[2021-09-20 06:49] LABS: VBG Base Excess 3.2 mmol/L; VBG HCO3 25 mmol/L (22-26); VBG pCO2 31 mmHg; VBG pH 7.51 (7.32-7.43); VBG pO2 124 mmHg
[2021-09-20 06:50] LABS: Venous Blood Gas Refer to POC result
[2021-09-20 07:09] LABS: Anion Gap 9 (12-20); Blood Urea Nitrogen 32 mg/dL (9-16); Calcium 8.5 mg/dL (8.4-10.2); Carbon Dioxide 27 mmol/L (22-29); Chloride 106 mmol/L (96-108); Creatinine Clr Calc Pharmacy 43.8; Estimated Glomerular Filt Rate > 60; Glucose Random 147 mg/dL (60-115); Potassium 4.1 mmol/L (3.3-5.1); Sodium 138 mmol/L (135-145)
[2021-09-20 08:00] VITALS: BP 116/78; PULSE 71; RESP 16; TEMP 36.5; O2SAT 95
--- NOTE | 2021-09-20 08:49 | MHC.CM.PN ---
CM SENT MESSAGE TO [facility] REQUESTING TIME WHEN HOSPITAL BED AND O2 WILL BE DELIVERED TO ARRANGE D/C TIME AND TRANSPORTATION.
[2021-09-20 09:28] LABS: Vancomycin Random 6.7 mcg/mL (15-20)
--- NOTE | 2021-09-20 09:49 | MHC.CM.PN ---
THIS CM RECEIVED MESSAGE BACK FROM [facility] THAT EQUIPMENT WILL BE DELIVERED AND THEY ARE REQUESTING 1PM D/C, CM CONTACTED PT'S HCP RUBÉN AT 9:30AM [phone] WHO REPORTS HE IS AT HOUSE AND [employer] CONTACTED HIM AND THEY WERE A FEW MINUTES AWAY AT TIME OF CALL, RUBÉN AGREEABLE TO 1PM D/C AND REPORTS HE WILL STOP AT HOSPITAL AFTER EQUIPMENT IS SET UP. REFERRAL PLACED TO [facility] FOR 1PM TRANSPORT.
--- NOTE | 2021-09-20 10:04 | PM.DS ---
DS: Providers Provider Date of Service: 09/20/21 Date of admission: 09/16/21 16:06 Primary care physician: Brooks Vela MD Consults: 09/16/21 16:40 Consult to Pulmonology Routine Consulting Provider: Magen Soliman Reason for consultation: covid + respiratory failure on high flow Has provider been notified: No 09/19/21 15:44 Consult to Cardiology Routine Consulting Provider: Adriana Godinez Reason for consultation: pacemaker interogation Has provider been notified: No DS: Diagnosis Discharge Diagnosis (1) Pneumonia: Status: Acute (2) Acute respiratory failure with hypoxia: Status: Acute (3) COVID-19: Status: Acute DS: Summary Hospital Course Hospital Course: Chief Complaint: shortness of breath This is an 86-year-old female who presents to the emergency department today with shortness of breath.? Patient has been on hospice since May 2021 for ?heart issues.?? Sunday she began having weakness shortness of breath and dry cough.? Today she was in respiratory distress and requested to come to the emergency department for evaluation.? On arrival she was febrile with a temperature of 102.1 degrees, tachypneic with a respiratory rate in the high 20s and was placed on a non-rebreather and eventually high-flow nasal cannula.? She underwent CTA which showed left lower lobe collapse as well as scattered ground-glass opacification.? She tested positive for COVID-19.? Patient has not been vaccinated against COVID-19.? GIP hospice was discussed with the patient but she and her healthcare proxy at the bedside decided that she wanted treatment against COVID-19 and therfore she will be admitted to the hospital for further management. Hospital course: Acute respiratory failure with hypoxia secondary to COVID-19 and pneumonia in unvaccinated patient Has been treated with Remdesevir, decadron and oxygen and overall has improved with resolution of hypoxia. presently on 2 liters of oxgyen by nasal canula and satuation of 95% CAP--Treated with Levaquin and Vancoymin, will continue Levaquin for total of 7 days, cultures negative Thrombocytopenia--likely related to covid with radha of 82 and as of 09/18 incrased to 105 Elevated trops no chest pain, trops flat likely secondary to demand from hypoxia Chronic HFpEF--compensated. 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 Time Spent with Patient Time attestation: Total time spent providing and/or coordinating discharge services: Discharge coordination time: Greater than 30 minutes Quality: Safe Use of Opioids Does Pt have an Active Cancer Diagnosis on the Problem List?: No Quality: Stroke Does the patient have a stroke diagnosis?: No Physical Exam Vital Signs: Vital Signs: Last Vital Signs Temp 97.7 F 09/20/21 08:00 Pulse 71 09/20/21 08:00 Resp 16 09/20/21 08:00 BP 116/78 09/20/21 08:00 Pulse Ox 95 09/20/21 08:00 BMI result Body Mass Index 19.5 DS: Data Data Completed and Pending Completed studies during hospitalization [Text1]: Procedures Transfusion of Nonautologous Frozen Plasma into Peripheral Vein, Percutaneous Approach (09/08/20) Labs on day of discharge: Laboratory Results - last 24 hr 09/19/21 09/20/21 09/20/21 08:50 06:39 06:43 VBG pH 7.51 H VBG pCO2 31 VBG pO2 124 VBG HCO3 25 VBG O2 Saturation 100.0 VBG Base Excess 3.2 Sodium 138 Potassium 4.1 Chloride 106 Carbon Dioxide 27 Anion Gap 9 L BUN 32 H Creatinine 0.67 Estim Creat Clear Calc 43.8 Estimated GFR > 60 Random Glucose 147 H Calcium 8.5 Vancomycin Trough 5.3 L Random Vancomycin 09/20/21 09:00 VBG pH VBG pCO2 VBG pO2 VBG HCO3 VBG O2 Saturation VBG Base Excess Sodium Potassium Chloride Carbon Dioxide Anion Gap BUN Creatinine Estim Creat Clear Calc Estimated GFR Random Glucose Calcium Vancomycin Trough Random Vancomycin 6.7 L Preliminary micro results at discharge 09/16/21 10:38 Blood Culture - Preliminary Blood - Venous No growth after 48 hours. 09/16/21 09:56 Blood Culture - Preliminary Blood - Venous No growth after 48 hours. Discharge Plan Discharge Anticipated Discharge Date/Time: 09/20/21 10:11 Patient Disposition: Home Health Service Discharge Diagnosis: Acute hypoxic respiratory faiure due to covid 19 Referrals: [facility] [Outside] - 1 Day (RESUMPTION OF HOSPICE CARE) Po,Brooks Karimi MD [Primary Care Provider] - 1 Week Discharge Medications: New levofloxacin 750 mg tablet 750 mg PO DAILY 2 Days Qty: 2 0RF Continued simvastatin 10 mg tablet 10 mg PO BEDTIME Qty: 90 3RF Eliquis 2.5 mg tablet 2.5 mg PO BID Qty: 60 2RF Label Comments: TOLD TO HOLD DOSE TONIGHT metoprolol succinate 25 mg tablet extended release 24 hr 25 mg PO DAILY Qty: 90 3RF flecainide 50 mg tablet 50 mg PO BID Qty: 180 3RF Vitamin C 1,000 mg Tablet Extended Release 1,000 mg PO DAILY 0RF Culturelle 10 billion cell Capsule 1 cap PO DAILY 0RF ferrous sulfate 324 mg (65 mg iron) Tablet,Delayed Release (Dr/Ec) 324 mg PO DAILY 0RF cholecalciferol (vitamin D3) [Vitamin D3] 50 mcg (2,000 unit) Capsule 50 mcg PO DAILY 0RF azithromycin 250 mg tablet 1 tab PO DIRECTED 0RF timolol maleate 0.5 % drops 1 drp ophthalmic (eye) QAM 0RF Discharge Orders: Discharge Order (Routine); Ordered 09/20/21 Ordered By: Reyes Falcon Diet: advance to usual diet Activity on Discharge: As tolerated Stand Alone Forms: Patient Portal Discharge page Care Plan Goals: Full recovery from covid Health Concerns: covid 19 with hypoxi Plan of Treatment: take Decadron for covid and Levaquin for pneumonia, follow up with hospice and PCP Assessment: Aas above
[2021-09-20] MEDS: Metoprolol Succinate ER 25 MG TAB.ER.24H PO (10:05)
[2021-09-20] MEDS: Flecainide Acetate 50 MG TABLET PO (10:05)
[2021-09-20] MEDS: 0.9 % Sodium Chloride Flush 3 ML SYRINGE IVFLUSH (10:06)
[2021-09-20] MEDS: dexAMETHasone sod phosphate 4 MG/ML VIAL 6 MG IVPUSH (10:06)
[2021-09-20] MEDS: Cholecalciferol (Vitamin D3) 25 MCG TABLET 50 MCG PO (10:06)
[2021-09-20] MEDS: Ferrous Sulfate 324 MG TABLET.DR PO (10:06)
[2021-09-20] MEDS: Apixaban 2.5 MG TABLET PO (10:06)
[2021-09-20] MEDS: vancomycin HCL 500 MG in 0.9 % Sodium Chloride 100 ML 110 MG IV (10:12)
--- NOTE | 2021-09-20 10:26 | HE.PHANOTE ---
dary duckworth In setting of improved renal function, q24 hour dosing will not be therapuetic. Changing dose to 500mg q12h with random trough for 09/21 @0800
[2021-09-20 12:00] VITALS: BP 100/64; PULSE 70; RESP 16; TEMP 36.8; O2SAT 97
--- NOTE | 2021-09-20 14:13 | MHC.SL.SWA ---
Speech Pathologist Impression: Risk of Aspiration Due to: History of Pneumonia Dysphasia Diet Status: Liquid Consistency and Strategies for Safe Swallow: Liquid Intake Recommendation: Thin Liquid Intake Strategies: No Straws Liquids by Teaspoon Only Solid Food Consistency: Dietary Recommendations: Grnd/Mech Altered (NDD2) Additional Modifications to Solid Foods: Patient has history of dysphagia and was seen by [facility]ACTER ACTOR several times during previous hospitalizations. Patient had MBSS here at [facility] on 06/2020 which was unremarkable, showing no evidence of aspiration, good oral and pharyngeal clearance. Patient seen again by CHARACTER ACTOR 09/2020 and downgraded at that time to ground solids and nectar thick liquids due to worsening dysphagia. Oral Medication Intake: Crushed with Puree Please contact the pharmacy regarding appropriate crushable or liquid drug formulations that are available whenever modified delivery is recommended. Compensatory Strategies and Precautions to be Taken for Safe Swallow: Sitting Upright (90 deg) No Straw Liquids from Spoon Small Bites and Sips Alternate Liquids/Solids Rate of Ingestion Change Supervision While Eating and Drinking for Safe Swallow: Total Supervision (1:1) Foods to Avoid: Tough difficult to chew solids; sticky solids. Swallowing Recommended Treatments: Compens. Strategy Educat. Recommendation for Speech: Inpatient Speech Therapy Comment: Pt seen immediately post lunch, w/ report that Pt ate minimal amount of food, but took most of Nutrishake/Ensure. Ensure at bedside w/ straw - nursing notified that all liquid is by TSP only. Pt given oral care prior to tsps of iced water. On water pt. grimaced and c/o temperature, discomfort swallowing due to sore throat. Pt noted to have significant delay initiating swallow of liquid, w/complete laryngeal transit on swallow, no clinical s/s of aspiration on several tsps. Pt refused further liquids, solid trials. Recommend Pt continue on Ground/Mechanical Diet (NDD2), w/ Thin liquids by TEASPOON ONLY, w/ Florian Water Protocol (Oral care, followed by TSPS of water, not during/independent of meal). PT requires FULL ASSIST/SUPERVISION during all meals, w/close monitor for signs of aspiration. NO STRAWS PLEASE. Frequency/Duration: Date Range for Service Req: Timeline to reassess: Parking Lot Spotter Clinican/Clinical Fellow: No Supervisory Statement: I have reviewed and agree with the student/clinical fellow's documentation: N/A Speech Language Pathologist: Graciela Pierce M.A., [facility]
== END 2021-09-20 15:30 | disposition home health service (06) | DRG 177 ==
LOC: HO.ED 14:57 → HO.EDOVER 16:53 → HO.IMC 19:43
PROVIDERS: Hospitalist; Nurse Practitioner Acute Care; Admitting Provider Physician Assistant Medical; Emergency Provider Emergency Medicine; PCP Internal Medicine; Visit Provider Internal Medicine
DX: U07.1 COVID-19 (principal); J96.01 Acute respiratory failure with hypoxia; J18.9 Pneumonia, unspecified organism; J98.11 Atelectasis; I50.32 Chronic diastolic (congestive) heart failure; D68.59 Other primary thrombophilia; E44.0 Moderate protein-calorie malnutrition; Z68.1 Body mass index [BMI] 19.9 or less, adult; J98.19 Other pulmonary collapse; E78.5 Hyperlipidemia, unspecified; I48.0 Paroxysmal atrial fibrillation; D69.59 Other secondary thrombocytopenia; I25.10 Atherosclerotic heart disease of native coronary artery without angina pectoris; Z96.641 Presence of right artificial hip joint; Z28.310 Unvaccinated for COVID-19; Z66 Do not resuscitate; Z95.0 Presence of cardiac pacemaker; Z88.0 Allergy status to penicillin; Z88.5 Allergy status to narcotic agent; Z88.1 Allergy status to other antibiotic agents; Z79.01 Long term (current) use of anticoagulants; Z79.899 Other long term (current) drug therapy
CPT/HCPCS: 36415; 70450; 71045; 71275; 80048; 80053; 80076; 80202; 81001; 82728; 82803; 83605; 83615; 83735; 83880; 84484; 85007; 85025; 85027; 86140; 87040; 87635; 92526; 92610; 93005; 96361; 96365; 96375; 97162; 99285; 99291; J0248; J1100; J1956; J3370; Q9967